=== PATIENT | female | born 1950 | race Caucasian/White ===

== ENCOUNTER 2021-06-11 07:10 | Outpatient (REF) | payer MEDICARE, SELFPAY ==
--- NOTE | ~2021-06-11 | MM_ITS ---
EXAMINATION: MM SCREENING DIGITAL BREAST TOMOSYNTHESIS, BILATERAL CLINICAL INFORMATION: Screening. Asymptomatic. Family history breast cancer, paternal aunt. The lifetime risk of breast cancer based on the Tyrer-Cuzick Model is 7%. COMPARISON: Mammography: 09/06/2019, 02/02/2018, 08/01/2016. TECHNIQUE: Digital breast tomosynthesis is performed in both the craniocaudal and mediolateral oblique views along with computer-aided detection (CAD). Synthesized 2D images are generated from the tomosynthesis. FINDINGS: There are scattered areas of fibroglandular density (ACR BI-RADS breast composition Category b). There are no significant masses, abnormal calcifications, or other abnormalities. Parenchymal pattern is similar to prior exams. The axilla and skin contours are unremarkable. MM/MM tomosynthesis screening BI IMPRESSION: There are no significant changes from prior study. ASSESSMENT: BI-RADS 1: Negative RECOMMENDATION: Routine annual mammography screening. This patient's information was entered into a reminder system with a target due date for their next mammogram.
== END 2021-06-11 07:11 | disposition home or self-care (01) ==
LOC: HO.MAMMO 07:10
PROVIDERS: Visit Provider Internal Medicine
DX: Z12.31 Encounter for screening mammogram for malignant neoplasm of breast (principal)
CPT/HCPCS: 77063; 77067

== ENCOUNTER 2022-07-25 21:06 | Inpatient (IN) | payer MEDICARE, SELFPAY ==
--- NOTE | 2022-07-25 | ECG_ITS ---
Test Reason : ABDOMINAL PAIN Blood Pressure : / mmHG Vent. Rate : 068 BPM Atrial Rate : 068 BPM P-R Int : 146 ms QRS Dur : 080 ms QT Int : 410 ms P-R-T Axes : 046 023 011 degrees QTc Int : 435 ms Normal sinus rhythm Low voltage QRS Normal ECG No previous ECGs available Referred By: Generic ED Physician Electronically Signed By:NIKI PULLIAM MD
--- NOTE | ~2022-07-25 | CT_ITS ---
EXAMINATION: CT ABDOMEN AND PELVIS WITH CONTRAST CLINICAL INFORMATION: Upper abdominal pain, question etiology COMPARISON: 11/16/2016 TECHNIQUE: Multidetector volumetric images were obtained from the superior aspect of the liver through the pubic symphysis following administration 85 mL of Omnipaque 350 intravenous contrast. Sagittal and coronal reformatted images were obtained on the technologist's workstation. Oral contrast: No This CT examination was performed using dose optimization techniques as appropriate, variously including the following: *Automated exposure control *Adjustment of mA and/or kV according to patient size (this includes techniques or standardized protocols for targeted exams where dose is matched to indication/reason for exam; i.e. extremities or head) *Use of iterative reconstruction technique DLP: 667 mGy-cm FINDINGS: LUNG BASES: Minimal dependent atelectasis. LIVER, GALLBLADDER, AND BILIARY TREE: The liver is normal in size, shape, and attenuation. No focal hepatic lesion or biliary ductal dilatation is present. The gallbladder is moderately distended, without densely calcified gallstones or significant wall thickening, though there is mild adjacent stranding adjacent to the inferior aspect of the gallbladder and hepatic flexure. PANCREAS: Unremarkable. SPLEEN: Unremarkable. ADRENAL GLANDS: Unremarkable. KIDNEYS AND URETERS: The kidneys are normal in size, shape, and attenuation. Tiny hypodensity in the right kidney statistically favors a cyst; no follow-up recommended. No hydronephrosis, hydroureter, or obstructing calculi seen. No perinephric stranding. BLADDER: Unremarkable. GASTROINTESTINAL TRACT: Moderate-sized hiatal hernia is noted. No evidence of bowel obstruction or significant wall thickening. There is colonic diverticulosis with mild stranding adjacent to hepatic flexure diverticuli in the right upper quadrant, raising the possibility of subtle diverticulitis. Appendix appears collapsed. No free fluid or free air is seen. ABDOMINAL WALL: No significant hernia is appreciated. LYMPH NODES: Normal. VASCULAR: Scattered atherosclerotic calcifications are present. PELVIC VISCERA: Status post hysterectomy. OSSEOUS STRUCTURES: Degenerative changes are noted in the spine. CT/CT abdomen pelvis w IV con IMPRESSION: 1. Colonic diverticulosis with mild stranding adjacent to the hepatic flexure in the right upper quadrant, raising the possibility of subtle diverticulitis in the proper clinical setting. Of note, this stranding is also adjacent to the gallbladder, though there is no appreciable gallbladder wall thickening or densely calcified gallstones; if there is clinical concern for possible cholecystitis, this would be better assessed with right upper quadrant ultrasound. 2. Moderate-sized hiatal hernia.
--- NOTE | ~2022-07-25 | US_ITS ---
EXAMINATION: US ABDOMEN LIMITED CLINICAL INFORMATION: Right upper quadrant abdominal pain. COMPARISON: Abdominal ultrasound dated 04/28/2012. TECHNIQUE: Real-time imaging of the right upper quadrant abdominal viscera. FINDINGS: PANCREAS: Visualized portions unremarkable. LIVER: Unremarkable. GALLBLADDER: Remarkable. COMMON BILE DUCT: Normal in caliber measuring 0.3 cm in diameter. RIGHT KIDNEY: 9.7 cm. Unremarkable. FREE FLUID: None. US/US abdomen limited IMPRESSION: Unremarkable abdominal ultrasound.
[2022-07-25 21:19] VITALS: BP 149/76; PULSE 89; RESP 20; TEMP 36.1; O2SAT 98; BMI 28.8
[2022-07-25 21:55] LABS: Basophils Percent Auto 0.3 % (0-2); Eosinophils Absolute Auto 0.1 X10*3/uL (0.0-0.4); Eosinophils Percent Auto 0.8 % (0-4); Hematocrit 39.4 % (37.0-47.0); Hemoglobin 13.5 g/dl (12.0-16.0); Imm Gran Abs Auto 0.06 X10*3/uL (0.00-0.03); Imm Gran Pct Auto 0.5 % (0.0-0.4); Lymphocytes Absolute Auto 2.9 X10*3/uL (1.2-4.9); Lymphocytes Percent Auto 24.2 % (20-40); MANUAL DIFF FLAG NO; Mean Corpuscular HGB Conc 34.3 g/dl (31.0-35.0); Mean Corpuscular Hemoglobin 30.9 pg (27.0-33.0); Mean Corpuscular Volume 90.2 fL (80.0-98.0); Mean Platelet Volume 8.8 fL (9.4-12.3); Monocytes Absolute Auto 1.2 X10*3/uL (0.1-1.2); Monocytes Percent Auto 10.1 % (2-11); Neutrophils Absolute Auto 7.8 x10*3/uL (2.0-8.3); Neutrophils Percent Auto 64.1 % (45-73); Platelet Count 267 X10*3/uL (160-400); Red Blood Count 4.37 X10*6/uL (4.20-5.50); Red Cell Distribution Width 12.1 % (11.0-16.0); White Blood Count 12.2 X10*3/uL (4.8-10.8)
[2022-07-25 21:57] LABS: Appearance Urine Clear; Color Urine Yellow; Glucose Urine UA Negative (Negative); Leukocyte Esterase Urine Trace (Negative); Nitrite Urine Negative (Negative); PH 5.5 (5.0-9.0); Specific Gravity - Urine 1.015 (1.005-1.025); UMIC TRIGGER UACC YES; Urine Blood Trace (Negative); Urine Ketones Negative (Negative); Urine Protein Negative (Neg-Trace)
[2022-07-25 22:03] LABS: Bacteria Urine None Seen (None Seen); Hyaline Casts Urine 0-2 /LPF (0-2); RBC Urine 0-2 /HPF (0-2); Squamous Epithelial Cell Urine 0-2 /HPF (0-2); WBC Urine 0-5 /HPF (0-5)
[2022-07-25 22:11] LABS: Alanine Aminotransferase 24 U/L (0-31); Albumin Level 4.6 g/dL (3.5-5.0); Alkaline Phosphatase 69 U/L (39-117); Anion Gap 19 (12-20); Aspartate Amino Transferase 38 U/L (5-31); Bilirubin Direct 0.3 mg/dL (0.0-0.5); Bilirubin Total 0.6 mg/dL (0.0-1.0); Blood Urea Nitrogen 22 mg/dL (9-16); Calcium 10.1 mg/dL (8.4-10.2); Carbon Dioxide 23 mmol/L (22-29); Chloride 96 mmol/L (96-108); Creatinine Clr Calc Pharmacy 48.1; Estimated Glomerular Filt Rate 52; Glucose Random 106 mg/dL (60-115); Lipase 48 U/L (8-78); Potassium 4.3 mmol/L (3.3-5.1); Sodium 134 mmol/L (135-145)
[2022-07-25 22:17] LABS: Troponin-I High Sensitivity < 3.5 ng/L (<3.5-17.0)
[2022-07-26] VITALS (9 sets, daily range): BP systolic 126–178; BP diastolic 55–81; PULSE 84–102; RESP 14–22; TEMP 36.6–37.2; O2SAT 92–98
--- NOTE | 2022-07-26 00:35 | ED.ABDPAIN ---
HPI - Abdominal Pain General Chief Complaint: Abdominal Pain Stated Complaint: Abd pain/Vomiting Time Seen by Provider: 07/26/22 00:33 Source: patient Mode of arrival: ambulatory Limitations: no limitations History of Present Illness HPI narrative: Patient with history of diverticulitis noticed pain in upper abdomen 2 days ago got better and again today after supper localized in epigastric area radiated to bilateral upper abdomen been having bilious vomiting multiple times no fever no chills no abdominal distention had normal bowel movement earlier no fever no chills no urinary complaints Related Data Home Medications Medication Instructions Recorded Confirmed atenolol 50 mg tablet 1 tab PO DAILY 07/26/22 07/26/22 fluticasone propionate 50 1 spray intranasal DAILY 07/26/22 07/26/22 mcg/actuation nasal spray,suspension lisinopril 40 mg tablet 1 tab PO DAILY 07/26/22 07/26/22 magnesium oxide 400 mg (241.3 mg 1 tab PO BEDTIME 07/26/22 07/26/22 magnesium) tablet omeprazole 20 mg capsule,delayed 1 cap PO SUTUTH 07/26/22 07/26/22 release Allergies Allergy/AdvReac Type Severity Reaction Status Date / Time No Known Allergies Allergy Verified 07/25/22 21:23 Review of Systems Review of Systems Yes all other systems are reviewed and are negative [facility] Past Medical History Medical History Hyperlipidemia Hypertension Surgical History H/O: hysterectomy Family History Family History Other No family history of coronary artery disease Social History Social History Advance Directives: No Advance Directives Information Provided: Yes service: No Current occupational status: retired Physical Exam ED Vital Signs: Vital Signs - 24 hr 07/25/22 21:19 07/26/22 00:26 07/26/22 03:06 Temperature 96.9 F 97.8 F Pulse Rate 89 92 91 Respiratory Rate 20 20 Blood Pressure 149/76 H 178/81 H 126/69 Pulse Oximetry 98 97 Oxygen Delivery Method Room Air 07/26/22 05:59 Temperature 98.9 F Pulse Rate 100 Respiratory Rate 18 Blood Pressure 141/66 H Pulse Oximetry 92 Oxygen Delivery Method Room Air BMI result Body Mass Index 28.8 Appearance: Alert. Oriented X3. In moderate distress Eyes: No pallor or icterus ENT: Pharynx normal. Oral Mucosa moist Neck: Normal inspection. Neck supple. CVS: Normal heart rate and rhythm. Pulses normal. Respiratory: No respiratory distress. Equal air entry bilateral, no wheezing/rales/rhonchi Abdomen: Soft, upper abdominal tenderness epigastric tenderness, slightly right upper quadrant tenderness, Bowel sounds are present, no mass palpable, no CVA tenderness Skin: Skin warm and dry. Normal skin color. Normal skin turgor. Extremities: No lower extremity edema. No calf tenderness Neuro: Oriented X 3. No motor deficit. Medications Administered Generic Name Dose Route Start Last Admin Trade Name Freq PRN Reason Stop Dose Admin Atenolol 50 mg 07/26/22 11:00 07/26/22 11:22 Atenolol 50 Mg Tablet PO 50 mg DAILY KALEY Administration Protocol Heparin Sodium (Porcine) 5,000 unit 07/26/22 06:15 07/26/22 07:45 Heparin Sodium,Porcine 5,000 Unit/Ml Vial SUBCUT 5,000 unit Q12H KALEY Administration Ceftriaxone Sodium 1 gm/ 50 mls @ 100 mls/hr 07/26/22 06:15 07/26/22 02:58 Sodium Chloride IV Infused Q24H KALEY Infusion Metronidazole 500 mg in 100 mls @ 100 mls/hr 07/26/22 07:00 07/26/22 14:51 Flagyl IV 100 mls/hr Q8H KALEY Administration Dextrose/Lactated Ringer's 1,000 mls @ 100 mls/hr 07/26/22 12:15 07/26/22 12:42 D5lr IVCONT 100 mls/hr .Q10H KALEY Administration Morphine Sulfate 4 mg 07/26/22 06:11 07/26/22 12:43 Morphine Sulfate 4 Mg/Ml Cartridge IVPUSH 4 mg Q4H PRN Administration Pain, Severe (Pain Scale 7-10) Protocol Ondansetron HCl 4 mg 07/26/22 06:11 07/26/22 07:43 Ondansetron Hcl 4 Mg/2 Ml Vial IVPUSH 4 mg Q8H PRN Administration Nausea and Vomiting Oxycodone HCl 5 mg 07/26/22 06:11 07/26/22 07:43 Oxycodone Hcl Immed Release 5 Mg Tablet PO 5 mg Q6H PRN Administration Pain, Severe (Pain Scale 7-10) Sodium Chloride 3 ml 07/26/22 08:00 07/26/22 14:52 0.9 % Sodium Chloride Flush 3 Ml Syringe IVFLUSH 3 ml QSHIFT KALEY Administration Discontinued Medications Generic Name Dose Route Start Last Admin Trade Name Ara PRN Reason Stop Dose Admin Hydromorphone HCl 1 mg 07/26/22 00:35 07/26/22 00:46 Hydromorphone Hcl 1 Mg/Ml Syringe IVPUSH 07/26/22 00:36 1 mg ONCE ONE Administration Protocol Hydromorphone HCl 0.5 mg 07/26/22 02:11 07/26/22 02:24 Hydromorphone Hcl 0.5 Mg/0.5 Ml Syringe IVPUSH 07/26/22 02:12 0.5 mg ONCE ONE Administration Sodium Chloride 1,000 mls @ 999 mls/hr 07/26/22 00:35 07/26/22 03:41 Ns IV 07/26/22 01:35 Infused .Q1H1M ONE Infusion Ceftriaxone Sodium 1 gm/ 50 mls @ 100 mls/hr 07/26/22 02:11 07/26/22 07:12 Sodium Chloride IV 07/26/22 02:40 Not Given ONCE ONE Metronidazole 500 mg in 100 mls @ 100 mls/hr 07/26/22 02:11 07/26/22 07:12 Flagyl IV 07/26/22 03:10 Not Given ONCE ONE Sodium Chloride 1,000 mls @ 999 mls/hr 07/26/22 02:11 07/26/22 03:30 Ns IV 07/26/22 03:11 999 mls/hr .Q1H1M KALEY Administration Iohexol 85 ml 07/26/22 06:01 07/26/22 06:02 Iohexol 350 Mg/Ml 100 Ml Infus..Btl IV 07/26/22 06:02 85 ml ONCE ONE Administration Metoclopramide HCl 5 mg 07/26/22 11:00 07/26/22 11:22 Metoclopramide Hcl 10 Mg/2 Ml Vial IVPUSH 07/26/22 11:01 5 mg ONCE ONE Administration Morphine Sulfate 2 mg 07/26/22 05:35 07/26/22 07:48 Morphine Sulfate 2 Mg/Ml Cartridge IVPUSH 07/26/22 05:36 Not Given ONCE ONE Ondansetron HCl 4 mg 07/26/22 00:35 07/26/22 00:46 Ondansetron Hcl 4 Mg/2 Ml Vial IVPUSH 07/26/22 00:36 4 mg ONCE ONE Administration MDM - Abdominal Pain MDM Narrative Medical decision making narrative: Patient CT scan showed diverticulitis uncomplicated in hepatic flexure , unusual location level to show slight leukocytosis would admit patient for IV antibiotic and pain control will give Rocephin and Flagyl Differential Diagnosis Differential diagnosis: Likely abdominal pain, calculus of kidney, diverticulitis, gastritis, mesenteric ischemia and pancreatitis Lab Data Attestation: I reviewed the patient's lab results. Result diagrams: 07/25/22 21:34 07/25/22 21:33 Labs: Lab Results 07/25/22 07/25/22 07/25/22 Range/Units 21:33 21:33 21:34 WBC 12.2 H (4.8-10.8) X10*3/uL RBC 4.37 (4.20-5.50) X10*6/uL Hgb 13.5 (12.0-16.0) g/dl Hct 39.4 (37.0-47.0) % MCV 90.2 (80.0-98.0) fL MCH 30.9 (27.0-33.0) pg MCHC 34.3 (31.0-35.0) g/dl RDW 12.1 (11.0-16.0) % Plt Count 267 (160-400) X10*3/uL MPV 8.8 L (9.4-12.3) fL Immature Gran % (Auto) 0.5 H (0.0-0.4) % Neut % (Auto) 64.1 (45-73) % Lymph % (Auto) 24.2 (20-40) % Morrow % (Auto) 10.1 (2-11) % Eos % (Auto) 0.8 (0-4) % Baso % (Auto) 0.3 (0-2) % Lymph # (Auto) 2.9 (1.2-4.9) X10*3/uL Morrow # (Auto) 1.2 (0.1-1.2) X10*3/uL Eos # (Auto) 0.1 (0.0-0.4) X10*3/uL Baso # (Auto) 0.0 (0.0-0.2) X10*3/uL Abs Immat Gran (auto) 0.06 H (0.00-0.03) X10*3/uL Absolute Neuts (auto) 7.8 (2.0-8.3) x10*3/uL Absolute Nucleated RBC 0.000 (0.0-0.012) X10*3/uL Nucleated RBC % (auto) 0.0 (0.0-0.2) /100WBC Sodium 134 L (135-145) mmol/L Potassium 4.3 (3.3-5.1) mmol/L Chloride 96 (96-108) mmol/L Carbon Dioxide 23 (22-29) mmol/L Anion Gap 19 (12-20) BUN 22 H (9-16) mg/dL Creatinine 1.04 (0.5-1.4) mg/dL Estim Creat Clear Calc 48.1 Estimated GFR 52 Random Glucose 106 (60-115) mg/dL Lactic Acid (0.5-2.0) mmol/L Calcium 10.1 (8.4-10.2) mg/dL Total Bilirubin 0.6 (0.0-1.0) mg/dL Direct Bilirubin 0.3 (0.0-0.5) mg/dL AST 38 H (5-31) U/L ALT 24 (0-31) U/L Alkaline Phosphatase 69 (39-117) U/L Troponin I High Sens < 3.5 (<3.5-17.0) ng/L Total Protein 7.0 (6.5-8.0) g/dL Albumin 4.6 (3.5-5.0) g/dL Lipase 48 (8-78) U/L Urine Color Urine Appearance Urine pH (5.0-9.0) Ur Specific Fountain (1.005-1.025) Urine Protein (Neg-Trace) mg/dL Urine Glucose (UA) (Negative) mg/dL Urine Ketones (Negative) mg/dL Urine Blood (Negative) Urine Nitrite (Negative) Ur Leukocyte Esterase (Negative) Urine RBC (0-2) /HPF Urine WBC (0-5) /HPF Ur Squamous Epith Cells (0-2) /HPF Urine Bacteria (None Seen) Hyaline Casts (0-2) /LPF Influenza Type A (PCR) (Negative) Influenza Type B (PCR) (Negative) RSV RNA Qual (PCR) (Negative) SARS-CoV-2 RNA (RT-PCR) (Negative) 07/25/22 07/26/22 07/26/22 Range/Units 21:40 00:31 00:43 WBC (4.8-10.8) X10*3/uL RBC (4.20-5.50) X10*6/uL Hgb (12.0-16.0) g/dl Hct (37.0-47.0) % MCV (80.0-98.0) fL MCH (27.0-33.0) pg MCHC (31.0-35.0) g/dl RDW (11.0-16.0) % Plt Count (160-400) X10*3/uL MPV (9.4-12.3) fL Immature Gran % (Auto) (0.0-0.4) % Neut % (Auto) (45-73) % Lymph % (Auto) (20-40) % Morrow % (Auto) (2-11) % Eos % (Auto) (0-4) % Baso % (Auto) (0-2) % Lymph # (Auto) (1.2-4.9) X10*3/uL Morrow # (Auto) (0.1-1.2) X10*3/uL Eos # (Auto) (0.0-0.4) X10*3/uL Baso # (Auto) (0.0-0.2) X10*3/uL Abs Immat Gran (auto) (0.00-0.03) X10*3/uL Absolute Neuts (auto) (2.0-8.3) x10*3/uL Absolute Nucleated RBC (0.0-0.012) X10*3/uL Nucleated RBC % (auto) (0.0-0.2) /100WBC Sodium (135-145) mmol/L Potassium (3.3-5.1) mmol/L Chloride (96-108) mmol/L Carbon Dioxide (22-29) mmol/L Anion Gap (12-20) BUN (9-16) mg/dL Creatinine (0.5-1.4) mg/dL Estim Creat Clear Calc Estimated GFR Random Glucose (60-115) mg/dL Lactic Acid 2.3 H* (0.5-2.0) mmol/L Calcium (8.4-10.2) mg/dL Total Bilirubin (0.0-1.0) mg/dL Direct Bilirubin (0.0-0.5) mg/dL AST (5-31) U/L ALT (0-31) U/L Alkaline Phosphatase (39-117) U/L Troponin I High Sens (<3.5-17.0) ng/L Total Protein (6.5-8.0) g/dL Albumin (3.5-5.0) g/dL Lipase (8-78) U/L Urine Color Yellow Urine Appearance Clear Urine pH 5.5 (5.0-9.0) Ur Specific Fountain 1.015 (1.005-1.025) Urine Protein Negative (Neg-Trace) mg/dL Urine Glucose (UA) Negative (Negative) mg/dL Urine Ketones Negative (Negative) mg/dL Urine Blood Trace H (Negative) Urine Nitrite Negative (Negative) Ur Leukocyte Esterase Trace H (Negative) Urine RBC 0-2 (0-2) /HPF Urine WBC 0-5 (0-5) /HPF Ur Squamous Epith Cells 0-2 (0-2) /HPF Urine Bacteria None Seen (None Seen) Hyaline Casts 0-2 (0-2) /LPF Influenza Type A (PCR) NEGATIVE (Negative) Influenza Type B (PCR) NEGATIVE (Negative) RSV RNA Qual (PCR) NEGATIVE (Negative) SARS-CoV-2 RNA (RT-PCR) NEGATIVE (Negative) Discharge Plan Discharge Clinical Impression: Diverticulitis Patient Disposition: Admitted As Inpatient
[2022-07-26] MEDS: HYDROmorphone HCl 1 MG/ML SYRINGE IVPUSH (00:46)
[2022-07-26] MEDS: ondansetron HCL 4 MG/2 ML VIAL IVPUSH ×3 (00:46→18:06)
[2022-07-26] MEDS: 0.9 % Sodium Chloride 1,000 ML 999 ML IV ×2 (01:40→03:30)
[2022-07-26] MEDS: HYDROmorphone HCl 0.5 MG/0.5 ML SYRINGE IVPUSH (02:24)
[2022-07-26] MEDS: cefTRIAXone sodium 1 GM in 0.9 % Sodium Chloride 50 ML IV (02:28)
[2022-07-26] MEDS: metroNIDAZOLE/NS 500 MG/100 ML PIGGYBACK 100 MG IV ×3 (02:28→22:15)
[2022-07-26 05:59] LABS: Lactic Acid 2.3 mmol/L (0.5-2.0)
[2022-07-26 06:00] LABS: Reflex Lactate? Lactic Acid Added
[2022-07-26] MEDS: iohexoL 350 MG/ML 100 ML INFUS..BTL 85 ML IV (06:02)
[2022-07-26 06:37] LABS: Influenza A PCR NEGATIVE (Negative); Influenza B PCR NEGATIVE (Negative); Resp Syncy Virus RNA Qual PCR NEGATIVE (Negative); SARS COV2 PCR INHOUSE NEGATIVE (Negative)
--- OUTSIDE RECORDS SUMMARY | 2022-07-26 07:09 | XMS_ITS | Continuity of Care Document ---
:1950 Author Organization [facility] [employer] [facility] p Address [address] [place] [address], [address] [place] [phone]- Care Team Providers Name Role Phone Evelio Marsh MD Primary Care Physician [id number] Date(s): 12/03/19 - 04/01/20 [facility] [employer] [facility] [address] [place] [address], [address] [place] [phone]- [facility] Attending Physician: Katherine Parsons MD Admitting Physician: Katherine Parsons MD Referring Physician: Evelio Marsh MD Allergies, Adverse Reactions, Alerts Substance Reaction Severity Status Pollen Active Medications albuterol CFC free 90 mcg/inh inhalation aerosol 2, puffs, Inhalation, Every 6 hours, PRN, # 18 Gm, Refills 0, Maintenance, 06/30/19 8:57:55 EST, Aerosol Start Date: 06/30/19 Status: Orderedatenolol-chlorthalidone 50 mg-25 mg oral tablet 1 tablet, By Mouth, Daily in AM, # 30 tablet, 0 Refills, Maintenance, 02/18/19 15:06:38 EDT, Tablet Start Date: 02/18/19 Status: OrderedColace sodium 100 mg oral capsule 100 mg, 1, capsule, By Mouth, 2 times a day, PRN, # 30 capsule, Refills 0, Tot. Refills 0, Maintenance, for constipation, 07/17/19 8:58:03 EST, Route to Pharmacy Electronically, [id number], [facility]/pharmacy #[id number] Start Date: 07/17/19 Status: OrderedFlonase 50 mcg/inh nasal spray 1 sprays, Nares, Both, Daily, PRN allergy symptoms, 0 Refills, Maintenance, 06/30/19 8:59:55 EST Start Date: 06/30/19 Status: Orderedibuprofen 400 mg oral tablet 400 mg, 1, tablet, By Mouth, Every 4 hours, PRN, # 30 tablet, Refills 0, Tot. Refills 0, Maintenance, for pain, 07/17/19 8:58:21 EST, Route to Pharmacy Electronically, [id number], [facility]/pharmacy #[id number] Start Date: 07/17/19 Status: OrderedLisinopril = 40 mg, By Mouth, Daily in AM, 0 Refills, Maintenance, 02/18/19 15:04:36 EDT Start Date: 02/18/19 Status: OrderedoxyCODONE 5 mg oral tablet 5 mg, 1, tablet, By Mouth, Every 6 hours, PRN, for post-op pain, # 20 tablet, Refills 0, Tot. Refills 0, Maintenance, for pain, 07/17/19 8:57:58 EST, Route to Pharmacy Electronically, [id number], [facility]/pharmacy #[id number], Partial f... Start Date: 07/17/19 Status: Orderedpravastatin 40 mg oral tablet 1 tablet = 40 mg, By Mouth, 2 times a day, 0 Refills, Maintenance, 02/18/19 15:04:16 EDT Start Date: 02/18/19 Status: OrderedPriLOSEC OTC 20 mg oral delayed release tablet 1 tablet = 20 mg, By Mouth, Daily, 3-4 / week, 0 Refills, Maintenance, 02/18/19 15:05:03 EDT Start Date: 02/18/19 Status: Ordered Problem List Condition Effective Dates Status Health Status Informant Asthma(Confirmed) Active COPD (chronic obstructive pulmonary Active disease)(Confirmed) Diverticulosis of colon(Confirmed) Active Essential hypertension(Confirmed) Active Reflux esophagitis(Confirmed) Active Reflux esophagitis(Confirmed) Active Heartburn(Confirmed) Active Hypercholesteremia(Confirmed) Active Hyperlipidemia(Confirmed) Active Hypertension(Confirmed) Active Tubular adenoma of colon(Confirmed) Active Social History Social History Type Response Smoking Status Former smoker, quit more gume n 30 days ago entered on: 02/18/19 Sex Medical Equipment Implanted Date:07/17/19 Target Site:Pelvis Description Quantity MRI Company Model MESH Y RESTORELLE 6 24X4 - COLO ([id number]) 1 [employer] Pelon Unknown KATHI: No Information Assigning Authority: FDA
--- OUTSIDE RECORDS SUMMARY | 2022-07-26 07:09 | XMS_ITS | Continuity of Care Document ---
:1950 Author Organization [facility] p Address [address] [place] [address], [address] [place] [id number]- Care Team Providers Name Role Phone Evelio Marsh MD [id number] Date(s): 03/03/20 - 04/02/20 [facility] [address] [place] [address], [address] [place] [id number] [facility] Attending Physician: Michelle Delacruz Admitting Physician: Michelle Delacruz Referring Physician: Michelle Delacruz Referring Physician: Katherine Gentile Allergies, Adverse Reactions, Alerts Substance Reaction Severity [...] 07/17/19 8:58:03 EST, Route to Pharmacy Electronically, [id number], [facility]/pharmacy #[id number] Start Date: 07/17/19 Status: OrderedFlonase 50 mcg/inh nasal spray 1 sprays, Nares, Both, Daily, PRN allergy symptoms, 0 Refills, Maintenance, 06/30/19 8:59:55 EST Start Date: 06/30/19 Status: Orderedibuprofen 400 mg oral tablet 400 mg, 1, tablet, By Mouth, Every 4 hours, PRN, # 30 tablet, Refills 0, Tot. Refills 0, Maintenance, for pain, 07/17/19 8:58:21 EST, Route to Pharmacy Electronically, [id number], [facility]/pharmacy #[id number] Start Date: 07/17/19 Status: OrderedLisinopril = 40 mg, By Mouth, Daily in AM, 0 Refills, Maintenance, 02/18/19 15:04:36 EDT Start Date: 02/18/19 Status: OrderedoxyCODONE 5 mg oral tablet 5 mg, 1, tablet, By Mouth, Every 6 hours, PRN, for post-op pain, # 20 tablet, Refills 0, Tot. Refills 0, Maintenance, for pain, 07/17/19 8:57:58 EST, Route to Pharmacy Electronically, [id number], [facility]/pharmacy #[id number], Partial f... Start Date: 07/17/19 Status: [...] MESH Y RESTORELLE 6 24X4 - COLO ([id number]) 1 [employer] Pelon Unknown KATHI: No Information Assigning Authority: FDA
--- OUTSIDE RECORDS SUMMARY | 2022-07-26 07:09 | XMS_ITS | Continuity of Care Document ---
:1950 Author Organization [facility] [employer] [facility] Address [address] [place] [phone]- Care Team Providers Name Role Phone Evelio Marsh MD [id number] Date(s): 06/10/19 - 08/31/19 [facility] [employer] [address] [place] [phone]- Attending Physician: Katherine Parsons MD Admitting Physician: [...] 07/17/19 8:58:03 EST, Route to Pharmacy Electronically, [id number], [facility]/pharmacy #[id number] Start Date: 07/17/19 Status: OrderedFlonase 50 mcg/inh nasal spray 1 sprays, Nares, Both, Daily, PRN allergy symptoms, 0 Refills, Maintenance, 06/30/19 8:59:55 EST Start Date: 06/30/19 Status: Orderedibuprofen 400 mg oral tablet 400 mg, 1, tablet, By Mouth, Every 4 hours, PRN, # 30 tablet, Refills 0, Tot. Refills 0, Maintenance, for pain, 07/17/19 8:58:21 EST, Route to Pharmacy Electronically, [id number], [facility]/pharmacy #[id number] Start Date: 07/17/19 Status: OrderedLisinopril = 40 mg, By Mouth, Daily in AM, 0 Refills, Maintenance, 02/18/19 15:04:36 EDT Start Date: 02/18/19 Status: OrderedoxyCODONE 5 mg oral tablet 5 mg, 1, tablet, By Mouth, Every 6 hours, PRN, for post-op pain, # 20 tablet, Refills 0, Tot. Refills 0, Maintenance, for pain, 07/17/19 8:57:58 EST, Route to Pharmacy Electronically, [id number], [facility]/pharmacy #[id number], Partial f... Start Date: 07/17/19 Status: [...] MESH Y RESTORELLE 6 24X4 - COLO ([id number]) 1 [employer] Pelon Unknown KATHI: No Information Assigning Authority: FDA
--- NOTE | 2022-07-26 07:38 | P.HPHOSP_ITS ---
History of Present Illness Date of Service: 07/26/22 Chief Complaint: Abd pain this is a 72-year-old female with past medical history of hypertension, hyperlipidemia presents to the hospital with complaints of abdominal pain. Patient reports the abdominal pain to be epigastric, radiating to the right upper quadrant, started the day prior to presentation, has nausea, vomiting, no diarrhea. Has some constipation, denies any fever, has chills,no chest pain, no shortness of breath, no urinary symptoms and no lower extremity edema. On arrival to the ED patient hemodynamically stable Labs are significant for WBC count of 12.2, sodium of 134, lactic acid of 2.3, urine shows leukocyte Estrace with some WBC Abdominal CT showed diffuse colitis patient started on IV antibiotics and will be admitted for further management Review of Systems Review of Systems: Yes all other systems are reviewed and are negative PMFSH Medical History Hyperlipidemia Hypertension Family History Other No family history of coronary artery disease Surgical History H/O: hysterectomy Social History Advance Directives: No Advance Directives Information Provided: Yes Meds Allergies Allergy/AdvReac Type Severity Reaction Status Date / Time No Known Allergies Allergy Verified 07/25/22 21:23 Active Medications: Current Medications Acetaminophen (Acetaminophen 325 Mg Tablet) 650 mg PO Q6H PRN PRN Reason: Pain, Mild (Pain Scale 1-3) Heparin Sodium (Porcine) (Heparin Sodium,Porcine 5,000 Unit/Ml Vial) 5,000 unit SUBCUT Q12H [facility] Ceftriaxone Sodium 1 gm/ (Sodium Chloride) 50 mls @ 100 mls/hr IV Q24H [facility] Last Infusion: 07/26/22 02:58 Dose: Infused Metronidazole (Flagyl) 500 mg in 100 mls @ 100 mls/hr IV Q8H [facility] Last Infusion: 07/26/22 03:28 Dose: Infused Morphine Sulfate (Morphine Sulfate 4 Mg/Ml Cartridge) 4 mg IVPUSH Q4H PRN; Protocol PRN Reason: Pain, Severe (Pain Scale 7-10) Ondansetron HCl (Ondansetron Hcl 4 Mg/2 Ml Vial) 4 mg IVPUSH Q8H PRN PRN Reason: Nausea and Vomiting Oxycodone HCl (Oxycodone Hcl Immed Release 5 Mg Tablet) 5 mg PO Q6H PRN PRN Reason: Pain, Severe (Pain Scale 7-10) Sodium Chloride (0.9 % Sodium Chloride Flush 3 Ml Syringe) 3 ml IVFLUSH QSHIFT [facility] Physical Exam Vital Signs and Narrative: Vital Signs: Last Vital Signs Temp 98.9 F 07/26/22 05:59 Pulse 102 H 07/26/22 07:01 Resp 18 07/26/22 07:01 BP 148/68 H 07/26/22 07:01 Pulse Ox 95 07/26/22 07:01 O2 Del Method 07/26/22 07:01 BMI result Body Mass Index 28.8 Const: General: cooperative and no acute distress Orientation/consciousness: patient oriented x3 Eyes: General: appearance normal, both eyes and all related structures Resp: Effort & Inspection: normal respiratory effort Auscultation: clear to auscultation bilaterally Cardio: Rate: regular rate Rhythm: regular rhythm GI: Other: diffusely tender, no rebound or guarding Palpation (GI): Soft to palpation Auscultation: normal bowel sounds Skin: General skin exam: no rashes or lesions noted Neuro: General: patient oriented x3 Cognition (Neuro): normal cognition Extrem: General: Yes normal to inspection and Yes no pedal edema Results Labs CBC and Chem 7: 07/25/22 21:34 07/25/22 21:33 Labs: Laboratory Results - last 24 hr 07/25/22 07/25/22 07/25/22 21:33 21:33 21:34 MCV 90.2 MCH 30.9 MCHC 34.3 RDW 12.1 Plt Count 267 MPV 8.8 L Immature Gran % (Auto) 0.5 H Neut % (Auto) 64.1 Lymph % (Auto) 24.2 [place] % (Auto) 10.1 Eos % (Auto) 0.8 Baso % (Auto) 0.3 Lymph # (Auto) 2.9 [place] # (Auto) 1.2 Eos # (Auto) 0.1 Baso # (Auto) 0.0 Abs Immat Gran (auto) 0.06 H Absolute Neuts (auto) 7.8 Absolute Nucleated RBC 0.000 Nucleated RBC % (auto) 0.0 Anion Gap 19 Estim Creat Clear Calc 48.1 Estimated GFR 52 Random Glucose 106 Lactic Acid Calcium 10.1 Total Bilirubin 0.6 Direct Bilirubin 0.3 AST 38 H ALT 24 Alkaline Phosphatase 69 Troponin I High Sens < 3.5 Total Protein 7.0 Albumin 4.6 Lipase 48 Urine Color Urine Appearance Urine pH Ur Specific [place] Urine Protein Urine Glucose (UA) Urine Ketones Urine Blood Urine Nitrite Ur Leukocyte Esterase Urine RBC Urine WBC Ur Squamous Epith Cells Urine Bacteria Hyaline Casts Influenza Type A (PCR) Influenza Type B (PCR) RSV RNA Qual (PCR) SARS-CoV-2 RNA (RT-PCR) 07/25/22 07/26/22 07/26/22 21:40 00:31 00:43 MCV MCH MCHC RDW Plt Count MPV Immature Gran % (Auto) Neut % (Auto) Lymph % (Auto) [place] % (Auto) Eos % (Auto) Baso % (Auto) Lymph # (Auto) [place] # (Auto) Eos # (Auto) Baso # (Auto) Abs Immat Gran (auto) Absolute Neuts (auto) Absolute Nucleated RBC Nucleated RBC % (auto) Anion Gap Estim Creat Clear Calc Estimated GFR Random Glucose Lactic Acid 2.3 H* Calcium Total Bilirubin Direct Bilirubin AST ALT Alkaline Phosphatase Troponin I High Sens Total Protein Albumin Lipase Urine Color Yellow Urine Appearance Clear Urine pH 5.5 Ur Specific [place] 1.015 Urine Protein Negative Urine Glucose (UA) Negative Urine Ketones Negative Urine Blood Trace H Urine Nitrite Negative Ur Leukocyte Esterase Trace H Urine RBC 0-2 Urine WBC 0-5 Ur Squamous Epith Cells 0-2 Urine Bacteria None Seen Hyaline Casts 0-2 Influenza Type A (PCR) NEGATIVE Influenza Type B (PCR) NEGATIVE RSV RNA Qual (PCR) NEGATIVE SARS-CoV-2 RNA (RT-PCR) NEGATIVE Assessment and Plan (1) Acute colitis: Status: Acute (2) Lactic acidosis: Status: Acute Plan 72-year-old female with past medical history of hypertension, hyperlipidemia presents to the hospital with abdominal pain found to have acute colitis # epigastric abdominal pain - pancreatitis versus colitis - prior abdominal CT shows colitis, lipase is negative, official read pending - will keep NPO - IV antibiotics - pain control # lactic acidosis - IV fluid - no sepsis - follow lactic acid # hypertension - stable - continue home meds once reviewed by pharmacy DVT prophylaxis: Mikalx given patient's need for IV antibiotics not tolerating p.o. intake patient required minimum to negative patient hospital stay for further management and monitoring Quality Stroke Does the patient have a stroke diagnosis?: No VTE Prior VTE?: No VTE Risk Level:: Medical - moderate - high VTE Device Contraindication: Treatment Not Indicated VTE Drug Contraindication: N/A - Med Ordered
[2022-07-26] MEDS: oxyCODONE HCl Immed Release 5 MG TABLET PO (07:43)
[2022-07-26] MEDS: Heparin Sodium,Porcine 5,000 UNIT/ML VIAL 5000 UNIT SUBCUT ×2 (07:45→18:06)
[2022-07-26 08:44] LABS: ~Lactic Acid-LAB USE ONLY 1.3 mmol/L (0.5-2.0)
--- NOTE | 2022-07-26 09:08 | PHA.MEDREC ---
Pharmacy Consult ? Medication Reconciliation Pharmacy has completed the medication reconciliation.
--- NOTE | 2022-07-26 09:57 | MHC.CM.PN ---
Patient lives in a house with her and 2 Daughters and she required no services nor DME [employer]. Home, self care is the goal and CM has initiated and will follow for dc planning. PCP is Dr. Evelio Marsh and Patient has received Pact vax X5.
--- NOTE | 2022-07-26 09:59 | MHC.CM.PN ---
addendum to previous CM note; IMM has been addressed.
[2022-07-26] MEDS: atenoloL 50 MG TABLET PO (11:22)
[2022-07-26] MEDS: Metoclopramide HCl 10 MG/2 ML VIAL 5 MG IVPUSH (11:22)
--- NOTE | 2022-07-26 11:56 | PM.EVENT ---
Event Note Date of Service: 07/26/22 Event Note: 72-year-old female with past medical history of hypertension, hyperlipidemia presents to the hospital with abdominal pain found to have acute colitis # sepsis related to acute abdominal pain due to diverticulitis elevated WBC count, tachycardia and lactic acidosis -? CT abdomen suggestive of diverticulitis, lipase normal LFTs unremarkable -? continue NPO, IV fluids and IV antibiotics #? lactic acidosis resolved status post IV fluids #? hypertension -? stable -? continue home meds atenolol 50 mg daily, hold lisinopril 40 mg follow blood pressure ?DVT prophylaxis: Lovenox
[2022-07-26] MEDS: Dextrose 5 % and Lactated Ring 1,000 ML 100 ML IVCONT (12:42)
[2022-07-26] MEDS: Morphine Sulfate 4 MG/ML CARTRIDGE IVPUSH ×3 (12:43→22:39)
[2022-07-26] MEDS: 0.9 % Sodium Chloride Flush 3 ML SYRINGE IVFLUSH (14:52)
--- NOTE | 2022-07-26 21:46 | PC.NURSE ---
Addendum entered by Melody Crews RN 07/27/22 03:25: report given to ALIA Valencia Original Note: report received from ALIA Snow
[2022-07-26] MEDS: Prochlorperazine Edisylate 10 MG/2 ML VIAL 5 MG IVPUSH (22:40)
[2022-07-27] VITALS (9 sets, daily range): BP systolic 132–168; BP diastolic 71–90; PULSE 79–92; RESP 16–24; TEMP 36.5–36.9; O2SAT 95–97; BMI 28.9
[2022-07-27] MEDS: Dextrose 5 % and Lactated Ring 1,000 ML 100 ML IVCONT ×2 (02:43→17:09)
[2022-07-27] MEDS: oxyCODONE HCl Immed Release 5 MG TABLET PO ×2 (04:36→15:20)
[2022-07-27 04:55] LABS: MANUAL DIFF FLAG NO
[2022-07-27 04:56] LABS: Basophils Absolute Auto 0.1 X10*3/uL (0.0-0.2); Basophils Percent Auto 0.3 % (0-2); Hemoglobin 13.2 g/dl (12.0-16.0); Imm Gran Abs Auto 0.26 X10*3/uL (0.00-0.03); Imm Gran Pct Auto 1.5 % (0.0-0.4); Lymphocytes Absolute Auto 0.9 X10*3/uL (1.2-4.9); Lymphocytes Percent Auto 5.4 % (20-40); Mean Corpuscular HGB Conc 33.8 g/dl (31.0-35.0); Mean Corpuscular Hemoglobin 30.8 pg (27.0-33.0); Mean Corpuscular Volume 91.1 fL (80.0-98.0); Mean Platelet Volume 8.7 fL (9.4-12.3); Monocytes Absolute Auto 1.4 X10*3/uL (0.1-1.2); Monocytes Percent Auto 8.3 % (2-11); Neutrophils Absolute Auto 14.7 x10*3/uL (2.0-8.3); Neutrophils Percent Auto 84.5 % (45-73); Platelet Count 227 X10*3/uL (160-400); Red Blood Count 4.28 X10*6/uL (4.20-5.50); Red Cell Distribution Width 12.6 % (11.0-16.0); White Blood Count 17.4 X10*3/uL (4.8-10.8)
[2022-07-27 05:16] LABS: Anion Gap 15 (12-20); Blood Urea Nitrogen 20 mg/dL (9-16); Calcium 9.6 mg/dL (8.4-10.2); Carbon Dioxide 25 mmol/L (22-29); Chloride 97 mmol/L (96-108); Creatinine Clr Calc Pharmacy 52.7; Estimated Glomerular Filt Rate 58; Glucose Random 104 mg/dL (60-115); Potassium 3.9 mmol/L (3.3-5.1); Sodium 133 mmol/L (135-145)
[2022-07-27] MEDS: Omeprazole 20 MG CAPSULE.DR PO (05:29)
[2022-07-27] MEDS: Heparin Sodium,Porcine 5,000 UNIT/ML VIAL 5000 UNIT SUBCUT ×2 (05:29→17:43)
[2022-07-27] MEDS: ondansetron HCL 4 MG/2 ML VIAL IVPUSH (05:30)
[2022-07-27] MEDS: cefTRIAXone sodium 1 GM in 0.9 % Sodium Chloride 50 ML IV (05:31)
[2022-07-27] MEDS: 0.9 % Sodium Chloride Flush 3 ML SYRINGE IVFLUSH (05:32)
[2022-07-27] MEDS: metroNIDAZOLE/NS 500 MG/100 ML PIGGYBACK 100 MG IV ×3 (06:27→22:52)
[2022-07-27] MEDS: atenoloL 50 MG TABLET PO (08:52)
[2022-07-27] MEDS: Metoclopramide HCl 10 MG/2 ML VIAL 5 MG IVPUSH ×2 (08:52→19:52)
[2022-07-27] MEDS: Morphine Sulfate 4 MG/ML CARTRIDGE IVPUSH ×2 (08:53→19:45)
--- NOTE | 2022-07-27 12:20 | P.CONGS_ITS ---
History of Present Illness Consult details Consult date: 07/27/22 <Alem Rivas PA-C - Last Filed: 07/27/22 12:41> Requesting physician: Lance Chadwick <HOWARD Carroll Last Filed: 07/27/22 12:41> Narrative: 72 year old female with PMH of hypertension, hyperlipidemia who presented to the ED with complaints of acute onset upper abdominal pain. She reports the pain initially started on Sunday after eating breakfast. She reports the pain started in the epigasteic region and spread to the RUQ and LUQ. It was crampy in nature but severe. It nearly resolved after a few hours but she still felt generally unwell. The pain recurred Sunday after dinner and was associated with vomiting. She therefore presented to the ED for evaluation. She denies fever, chills, diarrhea, change in bowel habits, hematochezia, melena, hematemesis. She denies previous episodes of similar pain. Work up in the ED included a CT scan abd/pelvis showing possible colitis. Her WBC count was 12.2 and had a lactic acid of 2.3. She was admitted to the medical service for treatment of the colitis. She is NPO, on IVF and IV ceftriaxone and flagyl. Her WBC count is up this morning to 17.4. She reports the pain was slightly better after admission and analgesics but is back to being severe this morning. An ABD ultrasound was ordered which was unremarkable. Last colonoscopy 2018 ([facility])- internal hemorrhoids, diverticulitis. <HOWARD Carroll Last Filed: 07/27/22 12:41> Review of Systems Constitutional: Constitutional: Denies chills and Denies fever(s) <HOWARD Carroll Last Filed: 07/27/22 12:41> ENT: Denies dizziness <HOWARD Carroll Last Filed: 07/27/22 12:41> Cardiovascular: Cardiovascular: Denies chest pain, Denies palpitations and Denies dyspnea <HOWARD Carroll Last Filed: 07/27/22 12:41> Respiratory: Respiratory: Denies cough and Denies dyspnea <HOWARD Carroll Last Filed: 07/27/22 12:41> Gastrointestinal: Gastrointestinal: Reports as per HPI <Alem Rivas PA-C Last Filed: 07/27/22 12:41> Genitourinary: Genitourinary: Denies hematuria <Alem Rivas PA-C Last Filed: 07/27/22 12:41> Integumentary/Breasts: Skin/Breast: Denies rash and Denies jaundice <Alem Rivas PA-C Last Filed: 07/27/22 12:41> Neurologic: Denies dizziness <Alem Rivas PA-C Last Filed: 07/27/22 12:41> Endocrine: Endocrine: Denies palpitations <Alem Rivas PA-C Last Filed: 07/27/22 12:41> PMFSH Past Medical History Medical History: Medical History Hyperlipidemia Hypertension <Alem Rivas PA-C Last Filed: 07/27/22 12:41> Family History Family History: Family History Other No family history of coronary artery disease <Alem Rivas PA-C Last Filed: 07/27/22 12:41> Surgical History Surgical History: Surgical History H/O: hysterectomy <HOWARD Carroll Last Filed: 07/27/22 12:41> Social History Social History: Social History Advance Directives: No Advance Directives Information Provided: Yes service: No Current occupational status: retired <HOWARD Carroll Last Filed: 07/27/22 12:41> Meds Allergies/Adverse reactions: Allergies Allergy/AdvReac Type Severity Reaction Status Date / Time No Known Allergies Allergy Verified 07/25/22 21:23 <HOWARD Carroll Last Filed: 07/27/22 12:41> Active Medications: Current Medications Acetaminophen (Acetaminophen 325 Mg Tablet) 650 mg PO Q6H PRN PRN Reason: Pain, Mild (Pain Scale 1-3) Atenolol (Atenolol 50 Mg Tablet) 50 mg PO DAILY [facility]; Protocol Last Admin: 07/27/22 08:52 Dose: 50 mg Heparin Sodium (Porcine) (Heparin Sodium,Porcine 5,000 Unit/Ml Vial) 5,000 unit SUBCUT Q12H [facility] Last Admin: 07/27/22 05:29 Dose: 5,000 unit Ceftriaxone Sodium 1 gm/ (Sodium Chloride) 50 mls @ 100 mls/hr IV Q24H [facility] Last Infusion: 07/27/22 07:43 Dose: Infused Metronidazole (Flagyl) 500 mg in 100 mls @ 100 mls/hr IV Q8H [facility] Last Infusion: 07/27/22 07:43 Dose: Infused Dextrose/Lactated Ringer's (D5lr) 1,000 mls @ 100 mls/hr IVCONT .Q10H [facility] Last Infusion: 07/27/22 07:44 Dose: 100 mls/hr Metoclopramide HCl (Metoclopramide Hcl 10 Mg/2 Ml Vial) 5 mg IVPUSH Q6H PRN PRN Reason: Nausea Last Admin: 07/27/22 08:52 Dose: 5 mg Morphine Sulfate (Morphine Sulfate 4 Mg/Ml Cartridge) 4 mg IVPUSH Q4H PRN; Protocol PRN Reason: Pain, Severe (Pain Scale 7-10) Last Admin: 07/27/22 08:53 Dose: 4 mg Omeprazole (Omeprazole 20 Mg Capsule.Dr) 20 mg PO SuTuTh@0630 [facility] Last Admin: 07/27/22 05:29 Dose: 20 mg Oxycodone HCl (Oxycodone Hcl Immed Release 5 Mg Tablet) 5 mg PO Q6H PRN PRN Reason: Pain, Severe (Pain Scale 7-10) Last Admin: 07/27/22 04:36 Dose: 5 mg Pharmacy Consult (Consult Rx Perform Med Rec) 1 each MISCELLANE ONCE PRN PRN Reason: Consult order Sodium Chloride (0.9 % Sodium Chloride Flush 3 Ml Syringe) 3 ml IVFLUSH QSHIFT [facility] Last Admin: 07/27/22 05:32 Dose: 3 ml <Alem Rivas PA-C - Last Filed: 07/27/22 12:41> Home medications: Home Medications Medication Instructions Recorded Confirmed Last Taken Type atenolol 50 mg tablet 1 tab PO DAILY 07/26/22 07/26/22 07/25/22 History fluticasone propionate 50 1 spray intranasal DAILY 07/26/22 07/26/22 07/25/22 History mcg/actuation nasal spray,suspension lisinopril 40 mg tablet 1 tab PO DAILY 07/26/22 07/26/22 07/25/22 History magnesium oxide 400 mg (241.3 mg 1 tab PO BEDTIME 07/26/22 07/26/22 07/25/22 History magnesium) tablet omeprazole 20 mg capsule,delayed 1 cap PO SUTUTH 07/26/22 07/26/22 07/25/22 Hi story release <HOWARD Carroll Last Filed: 07/27/22 12:41> Physical Exam Vital Signs: Vital Signs: Last Vital Signs Temp 98.5 F 07/27/22 11:14 Pulse 85 07/27/22 11:14 Resp 16 07/27/22 11:14 BP 144/77 H 07/27/22 11:14 Pulse Ox 97 07/27/22 11:14 O2 Del Method 07/27/22 11:14 O2 Flow Rate 3 07/27/22 11:14 BMI result Body Mass Index 28.9 <HOWARD Carroll Last Filed: 07/27/22 12:41> Const: General: comfortable, no acute distress and alert <HOWARD Carroll Last Filed: 07/27/22 12:41> Orientation/consciousness: patient oriented x3 <HOWARD Carroll Last Filed: 07/27/22 12:41> Resp: Effort & Inspection: normal respiratory effort <HOWARD Carroll Last Filed: 07/27/22 12:41> Cardio: Rate: regular rate <HOWARD Carroll Last Filed: 07/27/22 12:41> GI: Inspection: No distended and No scar <HOWARD Carroll Last Filed: 07/27/22 12:41> Palpation (GI): Soft to palpation, Tenderness to palpation present (GI) (upper abdomen, most significant at epigastric area), no guarding and not rigid <HOWARD Carroll Last Filed: 07/27/22 12:41> Percussion: Yes normal to percussion <HOWARD Carroll Last Filed: 07/27/22 12:41> Skin: General skin exam: no rashes or lesions noted <HOWARD Carroll Last Filed: 07/27/22 12:41> Neuro: General: patient oriented x3 and moves all extremities <HOWARD Carroll Last Filed: 07/27/22 12:41> Extrem: General: Yes no clubbing, cyanosis or edema <HOWARD Carroll Last Filed: 07/27/22 12:41> Results Labs Result diagrams: : 07/27/22 04:41 07/27/22 04:41 <HOWARD Carroll Last Filed: 07/27/22 12:41> Labs: Abnormal lab results 07/27/22 07/27/22 Range/Units 04:41 04:41 WBC 17.4 H (4.8-10.8) X10*3/uL MPV 8.7 L (9.4-12.3) fL Immature Gran % (Auto) 1.5 H (0.0-0.4) % Neut % (Auto) 84.5 H (45-73) % Lymph % (Auto) 5.4 L (20-40) % Lymph # (Auto) 0.9 L (1.2-4.9) X10*3/uL [place] # (Auto) 1.4 H (0.1-1.2) X10*3/uL Abs Immat Gran (auto) 0.26 H (0.00-0.03) X10*3/uL Absolute Neuts (auto) 14.7 H (2.0-8.3) x10*3/uL Sodium 133 L (135-145) mmol/L BUN 20 H (9-16) mg/dL Short CBC 07/27/22 Range/Units 04:41 WBC 17.4 H (4.8-10.8) X10*3/uL Hgb 13.2 (12.0-16.0) g/dl Hct 39.0 (37.0-47.0) % Plt Count 227 (160-400) X10*3/uL BMP 07/27/22 04:41 Sodium 133 L Potassium 3.9 Chloride 97 Carbon Dioxide 25 BUN 20 H Creatinine 0.95 Calcium 9.6 Urine 07/25/22 Range/Units 21:40 Urine Color Yellow Urine Appearance Clear Urine pH 5.5 (5.0-9.0) Ur Specific [place] 1.015 (1.005-1.025) Urine Protein Negative (Neg-Trace) mg/dL Urine Glucose (UA) Negative (Negative) mg/dL All other labs normal. <Alem Rivas PA-C - Last Filed: 07/27/22 12:41> Assessment and Plan (1) Acute colitis: Status: Acute <Alem Rivas PA-C - Last Filed: 07/27/22 12:41> Patient admitted because of abdominal pain I have reviewed her CAT scan - mild inflammatory changes noted on the hepatic flexure with what appeared to to be a diverticulum suggestive of acute diverticulitis in this area she otherwise has a benign exam would continue with bowel rest IV antibiotics her exam is otherwise benign will follow along while he she is in the hospital explained plan to patient see <Emir Banks MD - Last Filed: 07/27/22 13:00> 72 year old female admitted with severe upper abdominal pain and vomiting with leukocytosis and lactic acidosis on labs and CT scan showing wall thickening of the colon in the hepatic flexure (formal report pending). She was admitted to the medical service for further treatment. Her abdomen is actually very benign and she is non toxic appearing. Would recommend conservative measures of IVF, IV abx and bowel rest. No current surgical intervention needed. Will continue to follow. Case discussed with Dr. Banks. <Alem Rivas PA-C - Last Filed: 07/27/22 12:41> Procedures Date of Service Date of Service: 07/27/22 <Alem Rivas PA-C - Last Filed: 07/27/22 12:41>
--- NOTE | 2022-07-27 14:54 | HO.PM.IMPN ---
Subjective Subjective Date of Service: 07/27/22 Interval History: Patient complained of worsening right upper quadrant abdominal pain associated with nausea therefore treated with morphine and antiemetics with some relief in symptoms, patient is NPO, no fever chills no diarrhea, WBC bumped to 17,000 Review of Systems General no headache, no dizziness no fever chills. CVS no chest pain, no palpitation. Respiratory no cough, no sob Review of Systems: Yes all other systems are reviewed and are negative Physical Exam Vital Signs: Vital Signs: Last Vital Signs Temp 98.5 F 07/27/22 12:00 Pulse 85 07/27/22 12:00 Resp 16 07/27/22 12:00 BP 144/77 H 07/27/22 12:00 Pulse Ox 97 07/27/22 12:00 O2 Del Method 07/27/22 12:00 O2 Flow Rate 3 07/27/22 12:00 BMI result Body Mass Index 28.9 Const: Other: General awake alert x3 in no acute distress. Neck no JVD. CVS regular rate rhythm, Respiratory lungs clear to auscultation, no respiratory distress, no wheeze, no rhonchi. Gastrointestinal abdomen soft, tenderness epigastric and right upper quadrant, no guarding no rigidity no rebound Extremities no edema. Neuro nonfocal Skin no rash Psych appropriate affect Objective Data Active Medications Acetaminophen (Acetaminophen 325 Mg Tablet) 650 mg PO Q6H PRN PRN Reason: Pain, Mild (Pain Scale 1-3) Atenolol (Atenolol 50 Mg Tablet) 50 mg PO DAILY [facility]; Protocol Last Admin: 07/27/22 08:52 Dose: 50 mg Documented By: RASHAUN Heparin Sodium (Porcine) (Heparin Sodium,Porcine 5,000 Unit/Ml Vial) 5,000 unit SUBCUT Q12H [facility] Last Admin: 07/27/22 05:29 Dose: 5,000 unit Documented By: RASHAUN Ceftriaxone Sodium 1 gm/ (Sodium Chloride) 50 mls @ 100 mls/hr IV Q24H [facility] Last Infusion: 07/27/22 07:43 Dose: 0 mls/hr Documented By: RASHAUN Metronidazole (Flagyl) 500 mg in 100 mls @ 100 mls/hr IV Q8H [facility] Last Infusion: 07/27/22 07:43 Dose: 0 mls/hr Documented By: RASHAUN Dextrose/Lactated Ringer's (D5lr) 1,000 mls @ 100 mls/hr IVCONT .Q10H [facility] Last Infusion: 07/27/22 07:44 Dose: 100 mls/hr Documented By: RASHAUN Metoclopramide HCl (Metoclopramide Hcl 10 Mg/2 Ml Vial) 5 mg IVPUSH Q6H PRN PRN Reason: Nausea Last Admin: 07/27/22 08:52 Dose: 5 mg Documented By: RASHAUN Morphine Sulfate (Morphine Sulfate 4 Mg/Ml Cartridge) 4 mg IVPUSH Q4H PRN; Protocol PRN Reason: Pain, Severe (Pain Scale 7-10) Last Admin: 07/27/22 08:53 Dose: 4 mg Documented By: RASHAUN Omeprazole (Omeprazole 20 Mg Capsule.Dr) 20 mg PO SuTuTh@0630 [facility] Last Admin: 07/27/22 05:29 Dose: 20 mg Documented By: RASHAUN Oxycodone HCl (Oxycodone Hcl Immed Release 5 Mg Tablet) 5 mg PO Q6H PRN PRN Reason: Pain, Severe (Pain Scale 7-10) Last Admin: 07/27/22 04:36 Dose: 5 mg Documented By: RASHAUN Pharmacy Consult (Consult Rx Perform Med Rec) 1 each MISCELLANE ONCE PRN PRN Reason: Consult order Sodium Chloride (0.9 % Sodium Chloride Flush 3 Ml Syringe) [facility] Last Admin: 07/27/22 05:32 Dose: 3 ml Documented By: RASHAUN Labs CBC & Chem 7: 07/27/22 04:41 07/27/22 04:41 Labs: Laboratory Results - last 24 hr 07/27/22 07/27/22 04:41 04:41 MCV 91.1 MCH 30.8 MCHC 33.8 RDW 12.6 Plt Count 227 MPV 8.7 L Immature Gran % (Auto) 1.5 H Neut % (Auto) 84.5 H Lymph % (Auto) 5.4 L [place] % (Auto) 8.3 Eos % (Auto) 0.0 Baso % (Auto) 0.3 Lymph # (Auto) 0.9 L [place] # (Auto) 1.4 H Eos # (Auto) 0.0 Baso # (Auto) 0.1 Abs Immat Gran (auto) 0.26 H Absolute Neuts (auto) 14.7 H Absolute Nucleated RBC 0.000 Nucleated RBC % (auto) 0.0 Anion Gap 15 Estim Creat Clear Calc 52.7 Estimated GFR 58 Random Glucose 104 Calcium 9.6 Microbiology Microbiology Results: Microbiology 07/26/22 02:14 Blood Culture - Preliminary Blood - Venous No growth after 24 hours. 07/26/22 02:14 Blood Culture - Preliminary Blood - Venous No growth after 24 hours. Assessment and Plan (1) Diverticulitis: Status: Acute (2) Lactic acidosis: Status: Acute Plan 72-year-old female with past medical history of hypertension, hyperlipidemia presents to the hospital with abdominal pain found to have acute diverticulitis #? sepsis related to acute abdominal pain due to diverticulitis ? ? Patient abdominal pain worsened this morning , WBC bumped to 17,000, pain improved with IV Reglan and IV morphine Abdominal ultrasound obtained that is unremarkable -?? CT abdomen? suggestive of diverticulitis, lipase normal LFTs unremarkable -?? continue NPO, IV fluids and IV Flagyl and ceftriaxone day 2 Surgical consult obtained the agree with above treatment plan #? lactic acidosis resolved status post IV fluids #? hypertension -? stable -? continue home meds? atenolol 50 mg daily, hold lisinopril 40 mg follow blood pressure closely. ?DVT prophylaxis: Heparin subQ Patient need continued inpatient hospitalization for acute diverticulitis requiring IV analgesics and IV fluids since remains NPO. Quality Stroke Does the patient have a stroke diagnosis?: No VTE Prior VTE?: No VTE Risk Level:: Medical - moderate - high VTE Device Contraindication: Treatment Not Indicated VTE Drug Contraindication: N/A - Med Ordered
[2022-07-28] MEDS: Metoclopramide HCl 10 MG/2 ML VIAL 5 MG IVPUSH (03:39)
[2022-07-28] MEDS: Morphine Sulfate 4 MG/ML CARTRIDGE IVPUSH (03:40)
[2022-07-28] MEDS: Dextrose 5 % and Lactated Ring 1,000 ML 100 ML IVCONT (03:43)
[2022-07-28 03:51] VITALS: BP 150/90; PULSE 89; RESP 20; TEMP 36.7; O2SAT 93
[2022-07-28] MEDS: Heparin Sodium,Porcine 5,000 UNIT/ML VIAL 5000 UNIT SUBCUT ×2 (05:55→18:07)
[2022-07-28] MEDS: cefTRIAXone sodium 1 GM in 0.9 % Sodium Chloride 50 ML IV (05:55)
[2022-07-28 06:21] LABS: Hematocrit 34.6 % (37.0-47.0); Hemoglobin 11.6 g/dl (12.0-16.0); Mean Corpuscular HGB Conc 33.5 g/dl (31.0-35.0); Mean Corpuscular Hemoglobin 30.9 pg (27.0-33.0); Mean Corpuscular Volume 92.3 fL (80.0-98.0); Mean Platelet Volume 9.4 fL (9.4-12.3); Platelet Count 184 X10*3/uL (160-400); Red Blood Count 3.75 X10*6/uL (4.20-5.50); Red Cell Distribution Width 12.4 % (11.0-16.0); White Blood Count 12.9 X10*3/uL (4.8-10.8)
[2022-07-28] MEDS: metroNIDAZOLE/NS 500 MG/100 ML PIGGYBACK 100 MG IV ×3 (06:27→23:16)
[2022-07-28 06:44] LABS: Anion Gap 12 (12-20); Blood Urea Nitrogen 18 mg/dL (9-16); Calcium 8.7 mg/dL (8.4-10.2); Carbon Dioxide 26 mmol/L (22-29); Chloride 99 mmol/L (96-108); Creatinine Clr Calc Pharmacy 59.7; Estimated Glomerular Filt Rate > 60; Glucose Random 130 mg/dL (60-115); Potassium 3.1 mmol/L (3.3-5.1); Sodium 134 mmol/L (135-145)
[2022-07-28 08:00] VITALS: BP 116/66; PULSE 81; RESP 18; TEMP 36.8; O2SAT 95
[2022-07-28] MEDS: atenoloL 50 MG TABLET PO (09:08)
[2022-07-28] MEDS: 0.9 % Sodium Chloride Flush 3 ML SYRINGE IVFLUSH (09:12)
--- NOTE | 2022-07-28 10:48 | P.PNGS_ITS ---
Subjective Subjective Date of Service: 07/28/22 Interval history: says she has discomfort on abdomen pain better she want to start drinking liquids Physical Exam Vital Signs: Vital Signs: Last Vital Signs Temp 98.3 F 07/28/22 08:00 Pulse 81 07/28/22 08:00 Resp 18 07/28/22 08:00 BP 116/66 07/28/22 08:00 Pulse Ox 95 07/28/22 08:00 O2 Del Method 07/28/22 08:00 O2 Flow Rate 3 07/28/22 08:00 BMI result Body Mass Index 28.9 Const: General: comfortable and no acute distress Resp: Effort & Inspection: normal respiratory effort Cardio: Rate: regular rate GI: Other: mild tenderness upper abdomen Palpation (GI): Soft to palpation, not firm, no guarding and not rigid Objective Data Active Medications Acetaminophen (Acetaminophen 325 Mg Tablet) 650 mg PO Q6H PRN PRN Reason: Pain, Mild (Pain Scale 1-3) Atenolol (Atenolol 50 Mg Tablet) 50 mg PO DAILY [facility]; Protocol Last Admin: 07/28/22 09:08 Dose: 50 mg Documented By: RAYSHAWN Heparin Sodium (Porcine) (Heparin Sodium,Porcine 5,000 Unit/Ml Vial) 5,000 unit SUBCUT Q12H [facility] Last Admin: 07/28/22 05:55 Dose: 5,000 unit Documented By: JEAN-CLAUDE Ceftriaxone Sodium 1 gm/ (Sodium Chloride) 50 mls @ 100 mls/hr IV Q24H [facility] Last Infusion: 07/28/22 06:27 Dose: 0 mls/hr Documented By: JEAN-CLAUDE Metronidazole (Flagyl) 500 mg in 100 mls @ 100 mls/hr IV Q8H [facility] Last Infusion: 07/28/22 09:12 Dose: 0 mls/hr Documented By: RAYSHAWN Dextrose/Lactated Ringer's (D5lr) 1,000 mls @ 100 mls/hr IVCONT .Q10H [facility] Last Admin: 07/28/22 03:43 Dose: 100 mls/hr Documented By: JEAN-CLAUDE Metoclopramide HCl (Metoclopramide Hcl 10 Mg/2 Ml Vial) 5 mg IVPUSH Q6H PRN PRN Reason: Nausea Last Admin: 07/28/22 03:39 Dose: 5 mg Documented By: JEAN-CLAUDE Morphine Sulfate (Morphine Sulfate 4 Mg/Ml Cartridge) 4 mg IVPUSH Q4H PRN; Protocol PRN Reason: Pain, Severe (Pain Scale 7-10) Last Admin: 07/28/22 03:40 Dose: 4 mg Documented By: JEAN-CLAUDE Omeprazole (Omeprazole 20 Mg Capsule.) 20 mg PO SuTuTh@0630 [facility] Last Admin: 07/27/22 05:29 Dose: 20 mg Documented By: RASHAUN Oxycodone HCl (Oxycodone Hcl Immed Release 5 Mg Tablet) 5 mg PO Q6H PRN PRN Reason: Pain, Severe (Pain Scale 7-10) Last Admin: 07/27/22 15:20 Dose: 5 mg Documented By: RASHAUN Pharmacy Consult (Consult Rx Perform Med Rec) 1 each MISCELLANE ONCE PRN PRN Reason: Consult order Sodium Chloride (0.9 % Sodium Chloride Flush 3 Ml Syringe) 3 ml IVFLUSH [facility] Last Admin: 07/28/22 09:12 Dose: 3 ml Documented By: RAYSHAWN Labs CBC & Chem 7: 07/28/22 05:21 07/28/22 05:21 Labs: Laboratory Results - last 24 hr 07/28/22 07/28/22 05:21 05:21 MCV 92.3 MCH 30.9 MCHC 33.5 RDW 12.4 Plt Count 184 MPV 9.4 Absolute Nucleated RBC 0.000 Nucleated RBC % (auto) 0.0 Anion Gap 12 Estim Creat Clear Calc 59.7 Estimated GFR > 60 Random Glucose 130 H Calcium 8.7 D Microbiology Microbiology Results: Microbiology 07/26/22 02:14 Blood Culture - Preliminary Blood - Venous No growth after 24 hours. 07/26/22 02:14 Blood Culture - Preliminary Blood - Venous No growth after 24 hours. Procedures Date of Service Date of Service: 07/28/22 Progress Note: A&P Assessment and plan (1) Diverticulitis: Status: Acute Assessment and Plan: inflammatory changes along hepatic flexure suggestive of diverticulitis, ?segmental colitis pain better WBC down exam remains benign US unremarkable ok to try clear liquids today Time Spent With Patient Time: Total time spent is greater than 50% in coordination of care (as documented) at patient's floor/unit and/or counseling patient: Quality Stroke Does the patient have a stroke diagnosis?: No VTE Prior VTE?: No VTE Risk Level:: Medical - moderate - high VTE Device Contraindication: Treatment Not Indicated VTE Drug Contraindication: N/A - Med Ordered
[2022-07-28] MEDS: Pseudoephedrine HCL 30 MG TABLET PO (11:25)
--- NOTE | 2022-07-28 12:01 | P.PNIM_ITS ---
Subjective Subjective Date of Service: 07/29/22 Interval History: had right upper quadrant abdominal pain took 1 dose of morphine with good affect currently feeling better no nausea no vomiting, no fevers no chills, no diarrhea no other acute issues. Review of Systems General no headache no dizziness no fever chills. CVS no chest pain, no palpitation. Respiratory no cough no sob. Review of Systems: Yes all other systems are reviewed and are negative Physical Exam Vital Signs: Vital Signs: Last Vital Signs Temp 98.3 F 07/28/22 08:00 Pulse 81 07/28/22 08:00 Resp 18 07/28/22 08:00 BP 116/66 07/28/22 08:00 Pulse Ox 95 07/28/22 08:00 O2 Del Method 07/28/22 08:00 O2 Flow Rate 3 07/28/22 08:00 BMI result Body Mass Index 28.9 Const: Other: General awake alert x3 in no acute distress.? Neck no JVD. CVS? regular rate rhythm, Respiratory lungs clear to auscultation, no respiratory distress, no wheeze, no rhonchi. Gastrointestinal abdomen soft, tenderness right upper quadrant, no guarding no rigidity no rebound Extremities no? edema. Neuro nonfocal Skin no rash Psych appropriate affect Objective Data Active Medications Acetaminophen (Acetaminophen 325 Mg Tablet) 650 mg PO Q6H PRN PRN Reason: Pain, Mild (Pain Scale 1-3) Atenolol (Atenolol 50 Mg Tablet) 50 mg PO DAILY [facility]; Protocol Last Admin: 07/28/22 09:08 Dose: 50 mg Documented By: RAYSHAWN Heparin Sodium (Porcine) (Heparin Sodium,Porcine 5,000 Unit/Ml Vial) 5,000 unit SUBCUT Q12H [facility] Last Admin: 07/28/22 05:55 Dose: 5,000 unit Documented By: JEAN-CLAUDE Ceftriaxone Sodium 1 gm/ (Sodium Chloride) 50 mls @ 100 mls/hr IV Q24H [facility] Last Infusion: 07/28/22 06:27 Dose: 0 mls/hr Documented By: JEAN-CLAUDE Metronidazole (Flagyl) 500 mg in 100 mls @ 100 mls/hr IV Q8H [facility] Last Infusion: 07/28/22 09:12 Dose: 0 mls/hr Documented By: RAYSHAWN Dextrose/Lactated Ringer's (D5lr) 1,000 mls @ 100 mls/hr IVCONT .Q10H [facility] Last Admin: 07/28/22 03:43 Dose: 100 mls/hr Documented By: JEAN-CLAUDE Metoclopramide HCl (Metoclopramide Hcl 10 Mg/2 Ml Vial) 5 mg IVPUSH Q6H PRN PRN Reason: Nausea Last Admin: 07/28/22 03:39 Dose: 5 mg Documented By: JEAN-CLAUDE Morphine Sulfate (Morphine Sulfate 4 Mg/Ml Cartridge) 4 mg IVPUSH Q4H PRN; Protocol PRN Reason: Pain, Severe (Pain Scale 7-10) Last Admin: 07/28/22 03:40 Dose: 4 mg Documented By: JEAN-CLAUDE Omeprazole (Omeprazole 20 Mg Capsule.Dr) 20 mg PO SuTuTh@0630 [facility] Last Admin: 07/27/22 05:29 Dose: 20 mg Documented By: RASHAUN Oxycodone HCl (Oxycodone Hcl Immed Release 5 Mg Tablet) 5 mg PO Q6H PRN PRN Reason: Pain, Severe (Pain Scale 7-10) Last Admin: 07/27/22 15:20 Dose: 5 mg Documented By: RASHAUN Pharmacy Consult (Consult Rx Perform Med Rec) 1 each MISCELLANE ONCE PRN PRN Reason: Consult order Sodium Chloride (0.9 % Sodium Chloride Flush 3 Ml Syringe) 3 ml IVFLUSH QSHIFT [facility] Last Admin: 07/28/22 09:12 Dose: 3 ml Documented By: RAYSHAWN Labs CBC & Chem 7: 07/28/22 05:21 07/28/22 05:21 Labs: Laboratory Results - last 24 hr 07/28/22 07/28/22 05:21 05:21 MCV 92.3 MCH 30.9 MCHC 33.5 RDW 12.4 Plt Count 184 MPV 9.4 Absolute Nucleated RBC 0.000 Nucleated RBC % (auto) 0.0 Anion Gap 12 Estim Creat Clear Calc 59.7 Estimated GFR > 60 Random Glucose 130 H Calcium 8.7 D Microbiology Microbiology Results: Microbiology 07/26/22 02:14 Blood Culture - Preliminary Blood - Venous No growth after 48 hours. 07/26/22 02:14 Blood Culture - Preliminary Blood - Venous No growth after 48 hours. Assessment and Plan (1) Diverticulitis: Status: Acute (2) Lactic acidosis: Status: Acute Plan 72-year-old female with past medical history of hypertension, hyperlipidemia presents to the hospital with abdominal pain found to have acute diverticulitis #? sepsis related to acute abdominal pain due to diverticulitis ? ? Patient abdominal pain Improving WBC trending down, continue IV Reglan and IV morphine Abdominal ultrasound obtained that is unremarkable -?? CT abdomen? suggestive of diverticulitis, lipase normal LFTs unremarkable -?? will place on IV fluids continue IV fluids and IV Flagyl and ceftriaxone day 3 Surgical consult obtained the agree with above treatment plan #? lactic acidosis resolved status post IV fluids #? hypertension -? stable -? continue home meds? atenolol 50 mg daily, few high blood pressure readings will resume lisinopril 40 mg follow blood pressure closely. ?DVT prophylaxis: Heparin subQ Patient need continued inpatient hospitalization for acute diverticulitis requiring IV analgesics and IV fluids Quality Stroke Does the patient have a stroke diagnosis?: No VTE Prior VTE?: No VTE Risk Level:: Medical - moderate - high VTE Device Contraindication: Treatment Not Indicated VTE Drug Contraindication: N/A - Med Ordered
[2022-07-28] MEDS: Acetaminophen 325 MG TABLET 650 MG PO (14:07)
[2022-07-28 15:01] VITALS: BP 121/61; PULSE 78; RESP 19; TEMP 36.5; O2SAT 96
[2022-07-28] MEDS: Dextrose 5 % and Lactated Ring 1,000 ML 80 ML IVCONT (16:19)
[2022-07-28 19:02] VITALS: BP 137/67; PULSE 80; RESP 18; TEMP 36.7; O2SAT 97
[2022-07-29] MEDS: Morphine Sulfate 4 MG/ML CARTRIDGE IVPUSH ×3 (00:19→23:05)
[2022-07-29 03:46] VITALS: BP 160/67; PULSE 78; RESP 16; TEMP 36.4; O2SAT 96
[2022-07-29] MEDS: Dextrose 5 % and Lactated Ring 1,000 ML 80 ML IVCONT (03:56)
[2022-07-29] MEDS: cefTRIAXone sodium 1 GM in 0.9 % Sodium Chloride 50 ML IV (05:58)
[2022-07-29] MEDS: Heparin Sodium,Porcine 5,000 UNIT/ML VIAL 5000 UNIT SUBCUT ×2 (06:02→18:21)
[2022-07-29] MEDS: metroNIDAZOLE/NS 500 MG/100 ML PIGGYBACK 100 MG IV ×3 (06:36→23:02)
[2022-07-29 07:47] VITALS: BP 140/70; PULSE 79; RESP 12; TEMP 36.8; O2SAT 96
[2022-07-29] MEDS: atenoloL 50 MG TABLET PO (09:09)
[2022-07-29] MEDS: 0.9 % Sodium Chloride Flush 3 ML SYRINGE IVFLUSH ×2 (09:10→16:59)
--- NOTE | 2022-07-29 09:34 | P.PNGS_ITS ---
Subjective Subjective Date of Service: 07/29/22 Interval history: started on clear liquids yesterday but did note some increased abdominal pain mainly in the right upper quadrant. She denied nausea or vomiting but is not interested in increasing her diet today. Physical Exam Vital Signs: Vital Signs: Last Vital Signs Temp 98.2 F 07/29/22 07:47 Pulse 79 07/29/22 07:47 Resp 12 07/29/22 07:47 BP 140/70 H 07/29/22 07:47 Pulse Ox 96 07/29/22 07:47 O2 Del Method 07/29/22 07:47 O2 Flow Rate 3 07/29/22 07:47 BMI result Body Mass Index 28.9 Const: General: no acute distress Nutritional Appearance: well nourished Orientation/consciousness: patient oriented x3 Limitations: no limitations Resp: Effort & Inspection: normal respiratory effort, no audible wheezes, no cough and no respiratory distress GI: Inspection: Yes normal to inspection Palpation (GI): Soft to palpation, Tenderness to palpation present (GI) in the RUQ; with no rebound tenderness, no guarding and No Rebound tenderness present Percussion: Yes normal to percussion Auscultation: normal bowel sounds Skin: Other: Warm, dry, no rash Neuro: General: patient oriented x3 Objective Data Active Medications Acetaminophen (Acetaminophen 325 Mg Tablet) 650 mg PO Q6H PRN PRN Reason: Pain, Mild (Pain Scale 1-3) Last Admin: 07/28/22 14:07 Dose: 650 mg Documented By: TARA Atenolol (Atenolol 50 Mg Tablet) 50 mg PO DAILY [facility]; Protocol Last Admin: 07/29/22 09:09 Dose: 50 mg Documented By: BILL Heparin Sodium (Porcine) (Heparin Sodium,Porcine 5,000 Unit/Ml Vial) 5,000 unit SUBCUT Q12H [facility] Last Admin: 07/29/22 06:02 Dose: 5,000 unit Documented By: LEROY Ceftriaxone Sodium 1 gm/ (Sodium Chloride) 50 mls @ 100 mls/hr IV Q24H [facility] Last Infusion: 07/29/22 06:33 Dose: 0 mls/hr Documented By: LEROY Metronidazole (Flagyl) 500 mg in 100 mls @ 100 mls/hr IV Q8H [facility] Last Infusion: 07/29/22 08:16 Dose: 0 mls/hr Documented By: BILL Dextrose/Lactated Ringer's (D5lr) 1,000 mls @ 80 mls/hr IVCONT .[id number] [facility] Last Infusion: 07/29/22 09:10 Dose: 80 mls/hr Documented By: BILL Metoclopramide HCl (Metoclopramide Hcl 10 Mg/2 Ml Vial) 5 mg IVPUSH Q6H PRN PRN Reason: Nausea Last Admin: 07/28/22 03:39 Dose: 5 mg Documented By: JEAN-CLAUDE Morphine Sulfate (Morphine Sulfate 4 Mg/Ml Cartridge) 4 mg IVPUSH Q4H PRN; Protocol PRN Reason: Pain, Severe (Pain Scale 7-10) Last Admin: 07/29/22 06:36 Dose: 4 mg Documented By: LEROY Omeprazole (Omeprazole 20 Mg Capsule.Dr) 20 mg PO SuTuTh@0630 [facility] Last Admin: 07/27/22 05:29 Dose: 20 mg Documented By: RASHAUN Oxycodone HCl (Oxycodone Hcl Immed Release 5 Mg Tablet) 5 mg PO Q6H PRN PRN Reason: Pain, Severe (Pain Scale 7-10) Last Admin: 07/27/22 15:20 Dose: 5 mg Documented By: RASHAUN Pharmacy Consult (Consult Rx Perform Med Rec) 1 each MISCELLANE ONCE PRN PRN Reason: Consult order Sodium Chloride (0.9 % Sodium Chloride Flush 3 Ml [facility]) [facility] Last Admin: 07/29/22 09:10 Dose: 3 ml Documented By: BILL Labs CBC & Chem 7: 07/28/22 05:21 07/28/22 05:21 Microbiology Microbiology Results: Microbiology 07/26/22 02:14 Blood Culture - Preliminary Blood - Venous No growth after 48 hours. 07/26/22 02:14 Blood Culture - Preliminary Blood - Venous No growth after 48 hours. Procedures Date of Service Date of Service: 07/29/22 Progress Note: A&P Assessment and plan (1) Diverticulitis: Status: Acute Plan 72-year-old female patient with previous history of sigmoid diverticulitis now with diverticulitis involving the hepatic flexure. Overall she is improved but did have some increased abdominal pain with clear liquids. Will keep on clear liquids for today. Continue IV antibiotics. Recheck WBC in the a.m.. Time Spent With Patient Time: Total time spent is greater than 50% in coordination of care (as documented) at patient's floor/unit and/or counseling patient: Quality Stroke Does the patient have a stroke diagnosis?: No VTE Prior VTE?: No VTE Risk Level:: Medical - moderate - high VTE Device Contraindication: Treatment Not Indicated VTE Drug Contraindication: N/A - Med Ordered
[2022-07-29 10:00] VITALS: O2SAT 95
--- NOTE | 2022-07-29 11:40 | HO.PM.IMPN ---
Subjective Subjective Date of Service: 07/29/22 Interval History: had couple episodes of right upper quadrant abdominal pain required IV morphine for pain control this morning pain is better, has no appetite denies nausea vomiting not drinking much of clear liquids no other acute overnight events, no fevers no chills, complaining of nasal congestion history of nose bleeds. Review of Systems General no headache no dizziness no fever chills.? CVS no chest pain, no palpitation.? Respiratory no cough no sob.? Review of Systems: Yes all other systems are reviewed and are negative Physical Exam Vital Signs: Vital Signs: Last Vital Signs Temp 98.2 F 07/29/22 07:47 Pulse 79 07/29/22 07:47 Resp 12 07/29/22 07:47 BP 140/70 H 07/29/22 07:47 Pulse Ox 96 07/29/22 07:47 O2 Del Method 07/29/22 07:47 O2 Flow Rate 3 07/29/22 07:47 BMI result Body Mass Index 28.9 Const: Other: General awake alert x3 in no acute distress.? Neck no JVD. CVS? regular rate rhythm, Respiratory lungs clear to auscultation, no respiratory distress, no wheeze, no rhonchi. Gastrointestinal abdomen soft, tenderness right upper quadrant, no guarding, no rigidity no rebound Extremities no? edema. Neuro nonfocal Skin no rash Psych appropriate affect Objective Data Active Medications Acetaminophen (Acetaminophen 325 Mg Tablet) 650 mg PO Q6H PRN PRN Reason: Pain, Mild (Pain Scale 1-3) Last Admin: 07/28/22 14:07 Dose: 650 mg Documented By: TARA Atenolol (Atenolol 50 Mg Tablet) 50 mg PO DAILY [facility]; Protocol Last Admin: 07/29/22 09:09 Dose: 50 mg Documented By: BILL Heparin Sodium (Porcine) (Heparin Sodium,Porcine 5,000 Unit/Ml Vial) 5,000 unit SUBCUT Q12H [facility] Last Admin: 07/29/22 06:02 Dose: 5,000 unit Documented By: LEROY Ceftriaxone Sodium 1 gm/ (Sodium Chloride) 50 mls @ 100 mls/hr IV Q24H [facility] Last Infusion: 07/29/22 06:33 Dose: 0 mls/hr Documented By: LEROY Metronidazole (Flagyl) 500 mg in 100 mls @ 100 mls/hr IV Q8H [facility] Last Infusion: 07/29/22 08:16 Dose: 0 mls/hr Documented By: BILL Potassium Cl/Dextrose/Lact Ringer's (Kcl 20 Meq In 5 % Dex/Lact Rin) 20 meq in 1,000 mls @ 80 mls/hr IVCONT .[id number] [facility] Metoclopramide HCl (Metoclopramide Hcl 10 Mg/2 Ml Vial) 5 mg IVPUSH Q6H PRN PRN Reason: Nausea Last Admin: 07/28/22 03:39 Dose: 5 mg Documented By: JEAN-CLAUDE Morphine Sulfate (Morphine Sulfate 4 Mg/Ml Cartridge) 4 mg IVPUSH Q4H PRN; Protocol PRN Reason: Pain, Severe (Pain Scale 7-10) Last Admin: 07/29/22 06:36 Dose: 4 mg Documented By: LEROY Omeprazole (Omeprazole 20 Mg Capsule.Dr) 20 mg PO SuTuTh@0630 [facility] Last Admin: 07/27/22 05:29 Dose: 20 mg Documented By: RASHAUN Oxycodone HCl (Oxycodone Hcl Immed Release 5 Mg Tablet) 5 mg PO Q6H PRN PRN Reason: Pain, Severe (Pain Scale 7-10) Last Admin: 07/27/22 15:20 Dose: 5 mg Documented By: RASHAUN Pharmacy Consult (Consult Rx Perform Med Rec) 1 each MISCELLANE ONCE PRN PRN Reason: Consult order Sodium Chloride (0.9 % Sodium Chloride Flush 3 Ml Syringe) 3 ml IVFLUSH [facility] Last Admin: 07/29/22 09:10 Dose: 3 ml Documented By: BILL Labs CBC & Chem 7: 07/28/22 05:21 07/28/22 05:21 Microbiology Microbiology Results: Microbiology 07/26/22 02:14 Blood Culture - Preliminary Blood - Venous No growth after 48 hours. 07/26/22 02:14 Blood Culture - Preliminary Blood - Venous No growth after 48 hours. Assessment and Plan (1) Diverticulitis: Status: Acute (2) Lactic acidosis: Status: Acute Plan 72-year-old female with past medical history of hypertension, hyperlipidemia presents to the hospital with abdominal pain found to have acute diverticulitis #? sepsis related to acute abdominal pain due to diverticulitis ? ? intermittent abdomin pain, continue IV Reglan and IV morphine Abdominal ultrasound obtained that is unremarkable ?? CT abdomen? suggestive of diverticulitis, lipase normal LFTs unremarkable ?? continue IV fluids and IV Flagyl and ceftriaxone day 4 continue clear liquid diet, advanced gradually once pain improves Surgical consult obtained the agree with above treatment plan add saline spray for nasal congestion # hypokalemia potassium 3.1 will replete and repeat labs #? lactic acidosis resolved status post IV fluids #? hypertension -? stable -? continue home meds? atenolol 50 mg daily, few high blood pressure readings will resume lisinopril 20 mg follow blood pressure closely. ?DVT prophylaxis: Heparin subQ Patient need continued inpatient hospitalization for acute diverticulitis requiring IV analgesics and IV fluids Quality Stroke Does the patient have a stroke diagnosis?: No VTE Prior VTE?: No VTE Risk Level:: Medical - moderate - high VTE Device Contraindication: Treatment Not Indicated VTE Drug Contraindication: N/A - Med Ordered
[2022-07-29] MEDS: lisinopriL 20 MG TABLET PO (12:13)
[2022-07-29] MEDS: KCl 20 mEq in 5 % Dex/Lact Rin 20 MEQ/1,000 ML IV.SOLN 80 MEQ IVCONT (12:13)
[2022-07-29] MEDS: Potassium Chloride Packet 20 MEQ PACKET PO (12:13)
[2022-07-29] MEDS: oxyCODONE HCl Immed Release 5 MG TABLET PO (14:27)
[2022-07-29 15:08] VITALS: BP 130/62; PULSE 80; RESP 18; TEMP 37.3; O2SAT 97
[2022-07-29 19:44] VITALS: BP 137/71; PULSE 74; RESP 18; TEMP 37; O2SAT 98
[2022-07-29 23:40] VITALS: BP 142/75; PULSE 79; RESP 16; TEMP 37.6; O2SAT 96
[2022-07-30] MEDS: KCl 20 mEq in 5 % Dex/Lact Rin 20 MEQ/1,000 ML IV.SOLN 80 MEQ IVCONT (00:44)
[2022-07-30 03:35] VITALS: BP 156/78; PULSE 88; RESP 16; TEMP 37.6; O2SAT 96
[2022-07-30] MEDS: Heparin Sodium,Porcine 5,000 UNIT/ML VIAL 5000 UNIT SUBCUT ×2 (04:52→17:24)
[2022-07-30] MEDS: cefTRIAXone sodium 1 GM in 0.9 % Sodium Chloride 50 ML IV (04:52)
[2022-07-30] MEDS: Omeprazole 20 MG CAPSULE.DR PO (04:53)
[2022-07-30] MEDS: metroNIDAZOLE/NS 500 MG/100 ML PIGGYBACK 100 MG IV ×3 (05:42→22:13)
[2022-07-30 06:18] LABS: Basophils Absolute Auto 0.1 X10*3/uL (0.0-0.2); Basophils Percent Auto 0.4 % (0-2); Eosinophils Absolute Auto 0.1 X10*3/uL (0.0-0.4); Eosinophils Percent Auto 0.8 % (0-4); Hematocrit 32.9 % (37.0-47.0); Hemoglobin 11.2 g/dl (12.0-16.0); Imm Gran Abs Auto 0.12 X10*3/uL (0.00-0.03); Lymphocytes Absolute Auto 1.2 X10*3/uL (1.2-4.9); Lymphocytes Percent Auto 9.8 % (20-40); MANUAL DIFF FLAG SCAN; Mean Corpuscular Volume 91.1 fL (80.0-98.0); Mean Platelet Volume 9.3 fL (9.4-12.3); Monocytes Absolute Auto 2.4 X10*3/uL (0.1-1.2); Platelet Count 189 X10*3/uL (160-400); Red Blood Count 3.61 X10*6/uL (4.20-5.50); Red Cell Distribution Width 12.6 % (11.0-16.0); SCAN SMEAR FLAG 1; White Blood Count 11.8 X10*3/uL (4.8-10.8)
[2022-07-30 06:39] LABS: Anion Gap 14 (12-20); Blood Urea Nitrogen 17 mg/dL (9-16); Calcium 8.2 mg/dL (8.4-10.2); Carbon Dioxide 29 mmol/L (22-29); Chloride 98 mmol/L (96-108); Creatinine Clr Calc Pharmacy 70.6; Estimated Glomerular Filt Rate > 60; Glucose Random 89 mg/dL (60-115); Sodium 138 mmol/L (135-145)
[2022-07-30 06:46] LABS: SLIDE REVIEW VERIFIED
[2022-07-30 07:29] VITALS: BP 143/84; PULSE 80; RESP 16; TEMP 37.4; O2SAT 96
[2022-07-30] MEDS: Potassium Chloride Packet 20 MEQ PACKET 40 MEQ PO (08:20)
[2022-07-30] MEDS: 0.9 % Sodium Chloride Flush 3 ML SYRINGE IVFLUSH ×3 (08:20→22:14)
[2022-07-30] MEDS: atenoloL 50 MG TABLET PO (08:20)
[2022-07-30] MEDS: lisinopriL 20 MG TABLET PO (08:20)
--- NOTE | 2022-07-30 08:37 | P.PNGS_ITS ---
Subjective Subjective Date of Service: 07/30/22 Interval history: overall patient feels improved today with decreased abdominal pain. She was able to tolerate the liquid diet yesterday with minimal abdominal pain. She would like to try soft food today. Physical Exam Vital Signs: Vital Signs: Last Vital Signs Temp 99.4 F 07/30/22 07:29 Pulse 80 07/30/22 07:29 Resp 16 07/30/22 07:29 BP 143/84 H 07/30/22 07:29 Pulse Ox 96 07/30/22 07:29 O2 Del Method 07/30/22 07:29 O2 Flow Rate 2 07/30/22 07:29 BMI result Body Mass Index 28.9 Const: General: no acute distress Nutritional Appearance: well nourished Orientation/consciousness: patient oriented x3 Limitations: no limitations Resp: Effort & Inspection: normal respiratory effort, no audible wheezes, no cough and no respiratory distress GI: Inspection: Yes normal to inspection Palpation (GI): Soft to palpation, Tenderness to palpation present (GI) in the RUQ; with no rebound tenderness, no guarding and No Rebound tenderness present Percussion: Yes normal to percussion Auscultation: normal bowel sounds Skin: Other: Warm, dry, no rash Neuro: General: patient oriented x3 Objective Data Active Medications Acetaminophen (Acetaminophen 325 Mg Tablet) 650 mg PO Q6H PRN PRN Reason: Pain, Mild (Pain Scale 1-3) Last Admin: 07/28/22 14:07 Dose: 650 mg Documented By: TARA Atenolol (Atenolol 50 Mg Tablet) 50 mg PO DAILY [facility]; Protocol Last Admin: 07/30/22 08:20 Dose: 50 mg Documented By: BILL Heparin Sodium (Porcine) (Heparin Sodium,Porcine 5,000 Unit/Ml Vial) 5,000 unit SUBCUT Q12H [facility] Last Admin: 07/30/22 04:52 Dose: 5,000 unit Documented By: BALDEV Ceftriaxone Sodium 1 gm/ (Sodium Chloride) 50 mls @ 100 mls/hr IV Q24H [facility] Last Infusion: 07/30/22 06:19 Dose: 0 mls/hr Documented By: BALDEV Metronidazole (Flagyl) 500 mg in 100 mls @ 100 mls/hr IV Q8H [facility] Last Infusion: 07/30/22 07:23 Dose: 0 mls/hr Documented By: BILL Potassium Cl/Dextrose/Lact Ringer's (Kcl 20 Meq In 5 % Dex/Lact Rin) 20 meq in 1,000 mls @ 80 mls/hr IVCONT .[id number] [facility] Last Infusion: 07/30/22 08:22 Dose: 80 mls/hr Documented By: BILL Lisinopril (Lisinopril 20 Mg Tablet) 20 mg PO DAILY [facility]; Protocol Last Admin: 07/30/22 08:20 Dose: 20 mg Documented By: BILL Metoclopramide HCl (Metoclopramide Hcl 10 Mg/2 Ml Vial) 5 mg IVPUSH Q6H PRN PRN Reason: Nausea Last Admin: 07/28/22 03:39 Dose: 5 mg Documented By: JEAN-CLAUDE Morphine Sulfate (Morphine Sulfate 4 Mg/Ml Cartridge) 4 mg IVPUSH Q4H [facility]N; Protocol PRN Reason: Pain, Severe (Pain Scale 7-10) Last Admin: 07/29/22 23:05 Dose: 4 mg Documented By: BALDEV Omeprazole (Omeprazole 20 Mg Capsule.Dr) 20 mg PO SuTuTh@0630 [facility] Last Admin: 07/30/22 04:53 Dose: 20 mg Documented By: BALDEV Oxycodone HCl (Oxycodone Hcl Immed Release 5 Mg Tablet) 5 mg PO Q6H PRN PRN Reason: Pain, Severe (Pain Scale 7-10) Last Admin: 07/29/22 14:27 Dose: 5 mg Documented By: BILL Pharmacy Consult (Consult Rx Perform Med Rec) 1 each MISCELLANE ONCE PRN PRN Reason: Consult order Sodium Chloride (0.9 % Sodium Chloride Flush 3 Ml Syringe) 3 ml IVFLUSH QSHIFT [facility] Last Admin: 07/30/22 08:20 Dose: 3 ml Documented By: BILL Sodium Chloride (Sodium Chloride 0.65 % Nasal 44 Ml Sprbtl) 1 spray NOSTRIL-B Q1H PRN PRN Reason: Congestion Labs CBC & Chem 7: 07/30/22 05:35 07/30/22 05:35 Labs: Laboratory Results - last 24 hr 07/30/22 07/30/22 05:35 05:35 MCV 91.1 MCH 31.0 MCHC 34.0 RDW 12.6 Plt Count 189 MPV 9.3 L Immature Gran % (Auto) 1.0 H Neut % (Auto) 68.0 Lymph % (Auto) 9.8 L [place] % (Auto) 20.0 H Eos % (Auto) 0.8 Baso % (Auto) 0.4 Lymph # (Auto) 1.2 [place] # (Auto) 2.4 H Eos # (Auto) 0.1 Baso # (Auto) 0.1 Abs Immat Gran (auto) 0.12 H Absolute Neuts (auto) 8.0 Absolute Nucleated RBC 0.000 Nucleated RBC % (auto) 0.0 Smear Tech's Comments VERIFIED Anion Gap 14 Estim Creat Clear Calc 70.6 Estimated GFR > 60 Random Glucose 89 Calcium 8.2 L Procedures Date of Service Date of Service: 07/30/22 Progress Note: A&P Assessment and plan (1) Diverticulitis: Status: Acute Plan 72-year-old female patient with previous history of sigmoid diverticulitis now with diverticulitis involving the hepatic flexure. She has improved today with decreased abdominal pain. WBC is drifting downward. Abdominal exam is much improved. Will advance to a regular low-fiber diet. Encouraged out of bed and ambulation. Time Spent With Patient Time: Total time spent is greater than 50% in coordination of care (as documented) at patient's floor/unit and/or counseling patient: Quality Stroke Does the patient have a stroke diagnosis?: No VTE Prior VTE?: No VTE Risk Level:: Medical - moderate - high VTE Device Contraindication: Treatment Not Indicated VTE Drug Contraindication: N/A - Med Ordered
[2022-07-30 10:59] VITALS: BP 143/66; PULSE 83; RESP 16; TEMP 37.2; O2SAT 93
[2022-07-30] MEDS: Acetaminophen 325 MG TABLET 650 MG PO ×2 (11:34→17:24)
--- NOTE | 2022-07-30 12:13 | P.PNIM_ITS ---
Subjective Subjective Date of Service: 07/30/22 Interval History: Feeling better this morning less abdominal pain no nausea, no vomiting, denies fever chills has been tolerating clear liquid diet, no diarrhea. Review of Systems General no headache no dizziness no fever chills. CVS no chest pain, no palpitation. Respiratory no cough, no sob Review of Systems: Yes all other systems are reviewed and are negative Physical Exam Vital Signs: Vital Signs: Last Vital Signs Temp 99.0 F 07/30/22 10:59 Pulse 83 07/30/22 10:59 Resp 16 07/30/22 10:59 BP 143/66 H 07/30/22 10:59 Pulse Ox 93 07/30/22 10:59 O2 Del Method 07/30/22 10:59 O2 Flow Rate 2 07/30/22 07:29 BMI result Body Mass Index 28.9 Const: Other: General awake alert x3 in no acute distress.? Neck no JVD. CVS? regular rate rhythm, Respiratory lungs clear to auscultation, no respiratory distress, no wheeze, no rhonchi. Gastrointestinal abdomen soft,no tenderness right upper quadrant, no guarding, no rigidity no rebound Extremities no? edema. Neuro nonfocal Skin no rash Psych appropriate affect Objective Data Active Medications Acetaminophen (Acetaminophen 325 Mg Tablet) 650 mg PO Q6H PRN PRN Reason: Pain, Mild (Pain Scale 1-3) Last Admin: 07/30/22 11:34 Dose: 650 mg Documented By: BILL Atenolol (Atenolol 50 Mg Tablet) 50 mg PO DAILY PENDING SALE TO [facility]; Protocol Last Admin: 07/30/22 08:20 Dose: 50 mg Documented By: BILL Heparin Sodium (Porcine) (Heparin Sodium,Porcine 5,000 Unit/Ml Vial) 5,000 unit SUBCUT Q12H PENDING SALE TO [facility] Last Admin: 07/30/22 04:52 Dose: 5,000 unit Documented By: BALDEV Ceftriaxone Sodium 1 gm/ (Sodium Chloride) 50 mls @ 100 mls/hr IV Q24H PENDING SALE TO [facility] Last Infusion: 07/30/22 06:19 Dose: 0 mls/hr Documented By: BALDEV Metronidazole (Flagyl) 500 mg in 100 mls @ 100 mls/hr IV Q8H PENDING SALE TO [facility] Last Infusion: 07/30/22 07:23 Dose: 0 mls/hr Documented By: BILL Potassium Cl/Dextrose/Lact Ringer's (Kcl 20 Meq In 5 % Dex/Lact Rin) 20 meq in 1,000 mls @ 80 mls/hr IVCONT .[id number] PENDING SALE TO [facility] Last Infusion: 07/30/22 08:22 Dose: 80 mls/hr Documented By: BILL Lisinopril (Lisinopril 20 Mg Tablet) 20 mg PO DAILY PENDING SALE TO [facility]; Protocol Last Admin: 07/30/22 08:20 Dose: 20 mg Documented By: BILL Metoclopramide HCl (Metoclopramide Hcl 10 Mg/2 Ml Vial) 5 mg IVPUSH Q6H PRN PRN Reason: Nausea Last Admin: 07/28/22 03:39 Dose: 5 mg Documented By: JEAN-CLAUDE Morphine Sulfate (Morphine Sulfate 4 Mg/Ml Cartridge) 4 mg IVPUSH Q4H PRN; Protocol PRN Reason: Pain, Severe (Pain Scale 7-10) Last Admin: 07/29/22 23:05 Dose: 4 mg Documented By: BALDEV Omeprazole (Omeprazole 20 Mg Capsule.Dr) 20 mg PO SuTuTh@0630 PENDING SALE TO [facility] Last Admin: 07/30/22 04:53 Dose: 20 mg Documented By: BALDEV Oxycodone HCl (Oxycodone Hcl Immed Release 5 Mg Tablet) 5 mg PO Q6H PRN PRN Reason: Pain, Severe (Pain Scale 7-10) Last Admin: 07/29/22 14:27 Dose: 5 mg Documented By: BILL Pharmacy Consult (Consult Rx Perform Med Rec) 1 each MISCELLANE ONCE PRN PRN Reason: Consult order Sodium Chloride (0.9 % Sodium Chloride Flush 3 Ml Syringe) 3 ml IVFLUSH QSHIFT PENDING SALE TO [facility] Last Admin: 07/30/22 08:20 Dose: 3 ml Documented By: BILL Sodium Chloride (Sodium Chloride 0.65 % Nasal 44 Ml Sprbtl) 1 spray NOSTRIL-B Q1H PRN PRN Reason: Congestion Labs CBC & Chem 7: 07/30/22 05:35 07/30/22 05:35 Labs: Laboratory Results - last 24 hr 07/30/22 07/30/22 05:35 05:35 MCV 91.1 MCH 31.0 MCHC 34.0 RDW 12.6 Plt Count 189 MPV 9.3 L Immature Gran % (Auto) 1.0 H Neut % (Auto) 68.0 Lymph % (Auto) 9.8 L [place] % (Auto) 20.0 H Eos % (Auto) 0.8 Baso % (Auto) 0.4 Lymph # (Auto) 1.2 [place] # (Auto) 2.4 H Eos # (Auto) 0.1 Baso # (Auto) 0.1 Abs Immat Gran (auto) 0.12 H Absolute Neuts (auto) 8.0 Absolute Nucleated RBC 0.000 Nucleated RBC % (auto) 0.0 Smear Tech's Comments VERIFIED Anion Gap 14 Estim Creat Clear Calc 70.6 Estimated GFR > 60 Random Glucose 89 Calcium 8.2 L Assessment and Plan (1) Diverticulitis: Status: Acute (2) Lactic acidosis: Status: Acute Plan 72-year-old female with past medical history of hypertension, hyperlipidemia presents to the hospital with abdominal pain found to have acute diverticulitis #? sepsis related to acute abdominal pain due to diverticulitis ? ? Abdominal pain improved no nausea no vomiting Abdominal ultrasound unremarkable, CT abdomen?uggestive of diverticulitis, lipase normal LFTs unremarkable ? since pain has improved no nausea no vomiting WBC have still significantly improved will place patient on low-fiber, bland diet, DC IV fluids continue IV Flagyl and ceftriaxone day 5, case discussed with general surgery they agree with current treatment plan # hypokalemia potassium 3.0 will replete and repeat labs #? lactic acidosis resolved status post IV fluids #? hypertension? elevated blood pressure continue atenolol 50 mg and placed back on lisinopril 40 mg daily home dose ?DVT prophylaxis: Heparin subQ Patient need continued inpatient hospitalization for acute diverticulitis requiring IV antibiotics Quality Stroke Does the patient have a stroke diagnosis?: No VTE Prior VTE?: No VTE Risk Level:: Medical - moderate - high VTE Device Contraindication: Treatment Not Indicated VTE Drug Contraindication: N/A - Med Ordered
[2022-07-30 15:14] VITALS: BP 120/64; PULSE 77; RESP 18; TEMP 36.5; O2SAT 97
[2022-07-30 19:31] VITALS: BP 128/64; PULSE 63; RESP 18; TEMP 37; O2SAT 96
[2022-07-30] MEDS: oxyCODONE HCl Immed Release 5 MG TABLET PO (22:13)
[2022-07-30 23:52] VITALS: BP 156/77; PULSE 68; RESP 16; TEMP 37.1; O2SAT 96
[2022-07-31 04:00] VITALS: BP 145/72; PULSE 90; RESP 16; TEMP 36.6; O2SAT 93
[2022-07-31] MEDS: oxyCODONE HCl Immed Release 5 MG TABLET PO (05:36)
[2022-07-31] MEDS: cefTRIAXone sodium 1 GM in 0.9 % Sodium Chloride 50 ML IV (05:39)
[2022-07-31] MEDS: metroNIDAZOLE/NS 500 MG/100 ML PIGGYBACK 100 MG IV (06:12)
[2022-07-31] MEDS: Heparin Sodium,Porcine 5,000 UNIT/ML VIAL 5000 UNIT SUBCUT (06:16)
[2022-07-31 06:42] LABS: Hematocrit 33.4 % (37.0-47.0); Hemoglobin 11.4 g/dl (12.0-16.0); Mean Corpuscular HGB Conc 34.1 g/dl (31.0-35.0); Mean Corpuscular Hemoglobin 30.6 pg (27.0-33.0); Mean Corpuscular Volume 89.5 fL (80.0-98.0); Mean Platelet Volume 9.5 fL (9.4-12.3); Platelet Count 207 X10*3/uL (160-400); Red Blood Count 3.73 X10*6/uL (4.20-5.50); Red Cell Distribution Width 12.7 % (11.0-16.0); White Blood Count 11.6 X10*3/uL (4.8-10.8)
[2022-07-31 07:07] LABS: Anion Gap 13 (12-20); Blood Urea Nitrogen 19 mg/dL (9-16); Calcium 8.3 mg/dL (8.4-10.2); Carbon Dioxide 28 mmol/L (22-29); Chloride 102 mmol/L (96-108); Creatinine Clr Calc Pharmacy 75.9; Estimated Glomerular Filt Rate > 60; Glucose Random 86 mg/dL (60-115); Potassium 3.1 mmol/L (3.3-5.1); Sodium 140 mmol/L (135-145)
[2022-07-31 08:00] VITALS: BP 141/72; PULSE 70; RESP 18; TEMP 36.9; O2SAT 95
[2022-07-31] MEDS: atenoloL 50 MG TABLET PO (08:52)
[2022-07-31] MEDS: lisinopriL 20 MG TABLET PO (08:52)
[2022-07-31] MEDS: 0.9 % Sodium Chloride Flush 3 ML SYRINGE IVFLUSH (08:53)
--- NOTE | 2022-07-31 10:24 | MHC.CM.PN ---
PT WILL DC HOME TODAY WITH NO SERVICES PT TO ARRANGE TRANSPORT
[2022-07-31] MEDS: Potassium Chloride ER 20 MEQ TAB.ER.PRT 40 MEQ PO (10:31)
[2022-07-31 11:15] VITALS: BP 141/68; PULSE 75; RESP 16; TEMP 36.9; O2SAT 94
--- NOTE | 2022-07-31 12:21 | PM.DS ---
DS: Providers Provider Date of Service: 07/31/22 Date of admission: 07/26/22 06:12 Primary care physician: Evelio Marsh MD Consults: 07/27/22 08:11 Consult to General Surgery Routine Consulting Provider: Emir Banks Reason for consultation: diverticulitis Has provider been notified: No DS: Diagnosis Discharge Diagnosis (1) Diverticulitis: Status: Acute (2) Lactic acidosis: Status: Acute DS: Summary Hospital Course Hospital Course: Date of Service: 07/26/22 Chief Complaint: Abd pain ?this is a 72-year-old female with past medical history of hypertension, hyperlipidemia? presents to the hospital with complaints of abdominal pain.? Patient reports the abdominal pain to be epigastric, radiating to the right upper quadrant, started the day prior to presentation,? has nausea, vomiting, no diarrhea.? Has some constipation, denies any fever, has chills,no? chest pain, no shortness of breath, no urinary symptoms and no lower extremity edema.? On arrival to the ED patient hemodynamically stable Labs are significant for WBC count of 12.2, sodium of 134, lactic acid of 2.3, urine shows leukocyte Estrace with some WBC Abdominal CT showed diffuse colitis ?patient started on IV antibiotics? and will be admitted for further management. hospital course 72-year-old female with past medical history of hypertension, hyperlipidemia presents to the hospital with abdominal pain found to have sepsis due to acute diverticulitis #? sepsis related to acute diverticulitis, patient admitted to medical floor treated with IV ceftriaxone and IV Flagyl and fluids, she was kept NPO gradually diet was advanced currently patient is tolerating regular diet abdominal pain has improved WBC have trended down therefore she is being discharged home on low-fiber diet and 3 more days of antibiotics she is recommended to take Tylenol for pain and return to check with worsening symptoms, patient was followed closely by General surgery. ?? #? hypokalemia potassium 3.1 will replete and recommend outpatient follow BMP #? lactic acidosis resolved status post IV fluids #? hypertension?? continue home medications atenolol 50 mg and lisinopril 40 mg. Time Spent with Patient Time attestation: Total time spent providing and/or coordinating discharge services: Discharge coordination time: Greater than 30 minutes Quality: Safe Use of Opioids Does Pt have an Active Cancer Diagnosis on the Problem List?: No Quality: Stroke Does the patient have a stroke diagnosis?: No Physical Exam Vital Signs: Vital Signs: Last Vital Signs Temp 98.5 F 07/31/22 11:15 Pulse 75 07/31/22 11:15 Resp 16 07/31/22 11:15 BP 141/68 H 07/31/22 11:15 Pulse Ox 94 07/31/22 11:15 O2 Del Method 07/31/22 11:15 O2 Flow Rate 2 07/31/22 08:00 BMI result Body Mass Index 28.9 Const: Other: General awake alert x3 in no acute distress.? Neck no JVD. CVS? regular rate rhythm, Respiratory lungs clear to auscultation, no respiratory distress, no wheeze, no rhonchi. Gastrointestinal abdomen soft,no tenderness right upper quadrant, no guarding, no rigidity no rebound Extremities no? edema. Neuro nonfocal Skin no rash Psych appropriate affect DS: Data Data Completed and Pending Labs on day of discharge: Laboratory Results - last 24 hr 07/31/22 07/31/22 06:07 06:07 WBC 11.6 H RBC 3.73 L Hgb 11.4 L Hct 33.4 L MCV 89.5 MCH 30.6 MCHC 34.1 RDW 12.7 Plt Count 207 MPV 9.5 Absolute Nucleated RBC 0.000 Nucleated RBC % (auto) 0.0 Sodium 140 Potassium 3.1 L Chloride 102 Carbon Dioxide 28 Anion Gap 13 BUN 19 H Creatinine 0.66 Estim Creat Clear Calc 75.9 Estimated GFR > 60 Random Glucose 86 Calcium 8.3 L Discharge Plan Discharge Anticipated Discharge Date/Time: 07/31/22 09:55 Patient Disposition: Home, Self-Care Discharge Diagnosis: sepsis due to acute diverticulitis hypokalemia Referrals: Evelio Marsh MD [Primary Care Provider] - 1 Week Discharge Medications: New cefuroxime axetil 500 mg tablet 500 mg PO Q12H Qty: 6 0RF metronidazole 500 mg tablet 500 mg PO BID Qty: 6 0RF Continued magnesium oxide 400 mg (241.3 mg magnesium) tablet 1 tab PO BEDTIME omeprazole 20 mg capsule,delayed release(DR/EC) 1 cap PO SUTUTH lisinopril 40 mg tablet 1 tab PO DAILY atenolol 50 mg tablet 1 tab PO DAILY fluticasone propionate [Flonase] 50 mcg/actuation [place],Suspension 1 spray INTRANASAL DAILY Rx Instructions: administer into each nostril Discharge Orders: Discharge Order (Routine); Ordered 07/31/22 Ordered By: Lance Chadwick Diet: low fiber diet Activity on Discharge: As tolerated Stand Alone Forms: Patient Portal Discharge page Other Ambulatory Orders: Basic Metabolic Panel (Routine) Timeframe: 2 Days Facility: [facility] - Location: Laboratory Ordered By: Lance Chadwick Care Plan Goals: acute diverticulitis improved, take by mouth antibiotics as prescribed, continue low residue diet for next few days return to check with recurrent abdominal pain nausea vomiting or fevers low potassium take high potassium diet x few days only Health Concerns: take all home medications as before Plan of Treatment: outpatient follow-up with primary care physician call for Assessment: as above
== END 2022-07-31 13:23 | disposition home or self-care (01) | DRG 872 ==
LOC: HO.ED 07-26 00:33 → HO.EDOVER 07-26 07:08 → HO.S3 07-27 14:42
PROVIDERS: Surgery; Admitting Provider Internal Medicine; Emergency Provider Internal Medicine; PCP Internal Medicine; Visit Provider Hospitalist
DX: A41.9 Sepsis, unspecified organism (principal); E87.20 Acidosis, unspecified; K57.32 Diverticulitis of large intestine without perforation or abscess without bleeding; E78.5 Hyperlipidemia, unspecified; I10 Essential (primary) hypertension; E87.6 Hypokalemia; Z20.822 Contact with and (suspected) exposure to COVID-19; Z87.891 Personal history of nicotine dependence; Z79.51 Long term (current) use of inhaled steroids; Z79.899 Other long term (current) drug therapy
CPT/HCPCS: 0241U; 36415; 74177; 76705; 80048; 80076; 81001; 81003; 83605; 83690; 84484; 85025; 85027; 87040; 93005; 99285; J0696; J1170; J2270; J2405; J2765; Q9967

== ENCOUNTER 2023-01-11 19:43 | Inpatient (IN) | payer MEDICARE, SELFPAY ==
--- NOTE | ~2023-01-11 | US_ITS ---
EXAMINATION: US ABDOMEN LIMITED CLINICAL INFORMATION: Abnormal CT for evaluation of gallbladder and common bile duct. COMPARISON: CT scan earlier today: Mild biliary ductal dilatation. Distal filling defect in the CBD is suspicious for choledocholithiasis. This may be further assessed with ERCP. TECHNIQUE: Real-time imaging of the gallbladder and common bile duct. FINDINGS: GALLBLADDER: Echogenic bile is present in the gallbladder. The gallbladder is physiologically distended without evidence of stones, polyps, wall thickening or pericholecystic fluid. COMMON BILE DUCT: Normal in caliber measuring 0.9 cm in diameter. This distal common bile duct where there was a mass seen intraluminally on scan cannot be seen on this study as this portion was obscured by bowel gas FREE FLUID: None. US/US abdomen limited IMPRESSION: The common bile duct is dilated at 0.9 cm. The distal common bile duct, where soft tissue density filling defect is seen on the CT scan, is obscured by bowel gas. As stated at the time of the CT scan, ERCP would be useful for further evaluation.
--- NOTE | ~2023-01-11 | CT_ITS ---
EXAMINATION: CT ABDOMEN AND PELVIS WITH CONTRAST CLINICAL INFORMATION: Left lower quadrant pain COMPARISON: 07/26/2022 TECHNIQUE: Multidetector volumetric images were obtained from the superior aspect of the liver through the pubic symphysis following administration 85 mL of Omnipaque 350 intravenous contrast. Sagittal and coronal reformatted images were obtained on the technologist's workstation. Oral contrast: No This CT examination was performed using dose optimization techniques as appropriate, variously including the following: *Automated exposure control *Adjustment of mA and/or kV according to patient size (this includes techniques or standardized protocols for targeted exams where dose is matched to indication/reason for exam; i.e. extremities or head) *Use of iterative reconstruction technique DLP: 587 mGy-cm FINDINGS: LUNG BASES: The visualized lung bases are unremarkable. Coronary artery calcifications are present. LIVER, GALLBLADDER, AND BILIARY TREE: The liver is normal in size, shape, and attenuation. In comparison to prior, the right portal vein branches are not as well seen. Mild biliary ductal dilatation is present. Prominent common bile duct measures 0.9 cm in diameter. Distal filling defect in the CBD is suspicious for choledocholithiasis, as seen on coronal image 40. Gallbladder appears partially contracted. Subtle adjacent stranding is noted. PANCREAS: Unremarkable. SPLEEN: Unremarkable. ADRENAL GLANDS: Unremarkable. KIDNEYS AND URETERS: Bilateral nephrograms are symmetric. No hydronephrosis or obstructing calculus identified. BLADDER: Unremarkable. GASTROINTESTINAL TRACT: Moderate-sized hiatal hernia. No evidence of bowel obstruction. Sigmoid colon diverticulosis is noted. There is mild mesenteric stranding in the left pelvis, though this appears to be more closely associated with a segment of thick-walled small bowel, suggesting an enteritis. The appendix is unremarkable. Trace pelvic free fluid. No free air is seen. ABDOMINAL WALL: No significant hernia is appreciated. LYMPH NODES: Normal. VASCULAR: Scattered atherosclerotic calcifications. PELVIC VISCERA: Patient is status post hysterectomy. OSSEOUS STRUCTURES: Degenerative changes are noted in the spine. CT/CT abdomen pelvis w IV con IMPRESSION: 1. Mild mesenteric stranding in the left pelvis, which appears to be more closely associated with a segment of thick-walled small bowel rather than colonic diverticula, suggesting possible enteritis. 2. Mild biliary ductal dilatation. Distal filling defect in the CBD is suspicious for choledocholithiasis. This may be further assessed with ERCP. 3. Subtle stranding adjacent to the gallbladder, for which cholecystitis cannot be excluded. This may be further assessed with ultrasound as clinically warranted. 4. Right portal vein branches are not as well seen currently compared to prior. Patency may be further assessed with Doppler ultrasound. 5. Moderate-sized hiatal hernia.
--- NOTE | ~2023-01-11 | FL_ITS ---
EXAMINATION: XR FLUOROSCOPY WITH IMAGES CLINICAL INFORMATION: Common bile duct stone COMPARISON: CT of the abdomen and limited abdominal ultrasound 01/11/2023 TECHNIQUE: Fluoroscopy Supervised By: Dr. Stahl. Fluoroscopy Time: 301 seconds. Cumulative Dose: 104 mGy. Images: 9. FINDINGS: Initial images demonstrate mild intra and extrahepatic biliary duct dilatation. There are filling defects in the distal common bile duct suggestive of stones. Later images demonstrate a wire in the extrahepatic bile ducts and right intrahepatic bile ducts. Final images demonstrate interval decrease in biliary duct dilatation. No stone is seen. There is contrast in the duodenum. FL/FL guidance in OR IMPRESSION: Fluoroscopy guidance for ERCP.
[2023-01-11 19:49] VITALS: BP 135/81; PULSE 118; RESP 19; TEMP 36.9; O2SAT 95; BMI 29.5
--- NOTE | 2023-01-11 19:57 | ED.ABDPAIN ---
HPI - Abdominal Pain General Chief Complaint: Abdominal Pain <KIA Barba - Last Filed: 01/11/23 19:58> Stated Complaint: abd pain <KIA Barba - Last Filed: 01/11/23 19:58> Time Seen by Provider: 01/11/23 20:13 <KIA Barba - Last Filed: 01/11/23 19:58> Source: patient <Chato Stahl MD - Last Filed: 01/12/23 00:47> Mode of arrival: ambulatory <Chato Stahl MD - Last Filed: 01/12/23 00:47> Limitations: no limitations <Chato Stahl MD - Last Filed: 01/12/23 00:47> History of Present Illness HPI narrative: Patient history of diverticulitis and 07/18 comes here for pain started in epigastric area for last 4 days got worse today unable to eat much because of pain heavy with increased nausea and vomiting since yesterday no fever no chills no abdominal distension but patient feels bloated in the ER noticed to have temperature of 100.5 degrees. Never had similar pain in the past no history of gallstones or pancreatitis pain is localized in epigastric area without any radiation no urinary symptoms <Chato Stahl MD - Last Filed: 01/12/23 00:47> Related Data Home Medications: Home Medications Medication Instructions Recorded Confirmed atenolol 50 mg tablet 1 tab PO DAILY 07/26/22 07/26/22 fluticasone propionate 50 1 spray intranasal DAILY 07/26/22 07/26/22 mcg/actuation nasal spray,suspension lisinopril 40 mg tablet 1 tab PO DAILY 07/26/22 07/26/22 magnesium oxide 400 mg (241.3 mg 1 tab PO BEDTIME 07/26/22 07/26/22 magnesium) tablet omeprazole 20 mg capsule,delayed 1 cap PO SUTUTH 07/26/22 07/26/22 release Previous Rx's Medication Instructions Recorded cefuroxime axetil 500 mg tablet 500 mg PO Q12H #6 tabs 07/31/22 metronidazole 500 mg tablet 500 mg PO BID #6 tabs 07/31/22 <KIA Barba - Last Filed: 01/11/23 19:58> Allergies/Adverse Reactions: Allergies Allergy/AdvReac Type Severity Reaction Status Date / Time No Known Allergies Allergy Verified 01/11/23 19:49 <KIA Barba - Last Filed: 01/11/23 19:58> Review of Systems Review of Systems Yes all other systems are reviewed and are negative <Chato Stahl MD - Last Filed: 01/12/23 00:47> [facility] Past Medical History Medical History: Medical History Hyperlipidemia Hypertension <KIA Barba - Last Filed: 01/11/23 19:58> Surgical History: Surgical History H/O: hysterectomy History of rotator cuff surgery <KIA Barba - Last Filed: 01/11/23 19:58> Family History Family History: Family History Other No family history of coronary artery disease <KIA Barba - Last Filed: 01/11/23 19:58> Social History Social History: Social History Household Members: Spouse Housing: House Do you presently have visiting nurse or other home services: No Alcohol intake: never Patient Tobacco Use Status: Former Tobacco user Quit Date: 50 years ago Use of substances other than those prescribed or required for medical reasons: No Advance Directives: No Advance Directives Information Provided: No service: No Current occupational status: retired <KIA Barba - Last Filed: 01/11/23 19:58> Physical Exam ED Vital Signs: Vital Signs - 24 hr 01/11/23 19:49 01/11/23 20:23 01/11/23 22:13 Temperature 98.4 F 100.5 F H Pulse Rate 118 H 90 103 H Respiratory Rate 19 18 16 Blood Pressure 135/81 144/70 H 115/59 L Pulse Oximetry 95 95 96 Oxygen Delivery Method Room Air Room Air Room Air BMI result Body Mass Index 29.5 <KIA Barba - Last Filed: 01/11/23 19:58> Vital Signs - 24 hr 01/11/23 19:49 01/11/23 20:23 01/11/23 22:13 Temperature 98.4 F 100.5 F H Pulse Rate 118 H 90 103 H Respiratory Rate 19 18 16 Blood Pressure 135/81 144/70 H 115/59 L Pulse Oximetry 95 95 96 Oxygen Delivery Method Room Air Room Air Room Air BMI result Body Mass Index 29.5 <Chato Stahl MD - Last Filed: 01/12/23 00:47> Appearance: Alert. Oriented X3. In moderate distress Eyes: Icterus+ ENT: Pharynx normal. Oral Mucosa moist Neck: Normal inspection. Neck supple. CVS: Normal heart rate and rhythm. Pulses normal. Respiratory: No respiratory distress. Equal air entry bilateral, no wheezing/rales/rhonchi Abdomen: Soft , tenderness in epigastric area with guarding , Bowel sounds are present, no mass palpable, no CVA tenderness Skin: Skin warm and dry. Normal skin color. Normal skin turgor. Extremities: No lower extremity edema. No calf tenderness Neuro: Oriented X 3. No motor deficit. <Chato Stahl MD - Last Filed: 01/12/23 00:47> Course Course Course Narrative: This is an RME: Additional HPI, ROS, PE not included below will be deferred to primary provider. 72-year-old female presents with lower left abdominal pain that started today, with associated nausea, vomiting, fatigue malaise, patient has a history of diverticulitis and has required hospitalization in the past for this. Patient is scheduled to see GI in February to discuss next colonoscopy however has not had a recent colonoscopy. Physical exam patient appears uncomfortable. Vital signs are stable however tachycardic likely secondary to pain Plan- labs, urine, imaging <KIA Barba - Last Filed: 01/11/23 19:58> Medical Decision Making Medical Decision Making MDM Narrative: Patient with upper abdominal workup showed elevated LFTs and lipase CT scan ultrasound showed dilated CBD concern of possible choledocholithiasis no gallstones seen or pericholecystic fluid but CBD was dilated with filling defect patient will be admitted for further evaluation including requirement of ERCP and GI evaluation <Chato Stahl MD - Last Filed: 01/12/23 00:47> Differential Diagnosis Pancreatitis/cholecystitis/gastritis/diverticulitis <Chato Stahl MD - Last Filed: 01/12/23 00:47> Consult Healthcare Provider Management of the patient was discussed with: Hospitalist <Chato Stahl MD - Last Filed: 01/12/23 00:47> Lab Data MDM Lab Attestation statement: I reviewed the patient's lab results. <Chato Stahl MD - Last Filed: 01/12/23 00:47> Result Diagrams: 01/11/23 19:58 01/11/23 19:58 <KIA Barba - Last Filed: 01/11/23 19:58> Labs: Lab Results 01/11/23 01/11/23 01/11/23 Range/Units 19:58 19:58 20:54 WBC 10.2 (4.8-10.8) X10*3/uL RBC 4.58 D (4.20-5.50) X10*6/uL Hgb 13.6 (12.0-16.0) g/dl Hct 39.8 (37.0-47.0) % MCV 86.9 (80.0-98.0) fL MCH 29.7 (27.0-33.0) pg MCHC 34.2 (31.0-35.0) g/dl RDW 13.2 (11.0-16.0) % Plt Count 300 D (160-400) X10*3/uL MPV 9.0 L (9.4-12.3) fL Immature Gran % (Auto) 0.3 (0.0-0.4) % Neut % (Auto) 84.5 H (45-73) % Lymph % (Auto) 6.4 L (20-40) % [place] % (Auto) 8.6 (2-11) % Eos % (Auto) 0.1 (0-4) % Baso % (Auto) 0.1 (0-2) % Lymph # (Auto) 0.7 L (1.2-4.9) X10*3/uL [place] # (Auto) 0.9 (0.1-1.2) X10*3/uL Eos # (Auto) 0.0 (0.0-0.4) X10*3/uL Baso # (Auto) 0.0 (0.0-0.2) X10*3/uL Abs Immat Gran (auto) 0.03 (0.00-0.03) X10*3/uL Absolute Neuts (auto) 8.6 H (2.0-8.3) x10*3/uL Absolute Nucleated RBC 0.000 (0.0-0.012) X10*3/uL Nucleated RBC % (auto) 0.0 (0.0-0.2) /100WBC Sodium 135 (135-145) mmol/L Potassium 4.2 D (3.3-5.1) mmol/L Chloride 101 (96-108) mmol/L Carbon Dioxide 22 (22-29) mmol/L Anion Gap 16 (12-20) BUN 12 (9-16) mg/dL Creatinine 1.02 (0.5-1.4) mg/dL Estim Creat Clear Calc 46.3 Estimated GFR 53 Random Glucose 124 H (60-115) mg/dL Lactic Acid (0.5-2.0) mmol/L Calcium 10.3 H D (8.4-10.2) mg/dL Magnesium 1.1 L* (1.6-2.6) mg/dL Total Bilirubin 5.0 H (0.0-1.0) mg/dL AST 263 H (5-31) U/L ALT 282 H (0-31) U/L Alkaline Phosphatase 580 H (39-117) U/L Total Protein 6.5 (6.5-8.0) g/dL Albumin 4.2 (3.5-5.0) g/dL Lipase 234 H (8-78) U/L Urine Color Dark Yellow Urine Appearance Clear Urine pH 6.0 (5.0-9.0) Ur Specific [place] 1.015 (1.005-1.025) Urine Protein Negative (Neg-Trace) mg/dL Urine Glucose (UA) Negative (Negative) mg/dL Urine Ketones Trace (Negative) mg/dL Urine Blood Negative (Negative) Urine Nitrite Negative (Negative) Ur Leukocyte Esterase Moderate (2+) H (Negative) Urine RBC 0-2 (0-2) /HPF Urine WBC 0-5 (0-5) /HPF Ur Squamous Epith Cells 0-2 (0-2) /HPF Urine Bacteria None Seen (None Seen) Hyaline Casts 0-2 (0-2) /LPF 01/11/23 Range/Units 21:55 WBC (4.8-10.8) X10*3/uL RBC (4.20-5.50) X10*6/uL Hgb (12.0-16.0) g/dl Hct (37.0-47.0) % MCV (80.0-98.0) fL MCH (27.0-33.0) pg MCHC (31.0-35.0) g/dl RDW (11.0-16.0) % Plt Count (160-400) X10*3/uL MPV (9.4-12.3) fL Immature Gran % (Auto) (0.0-0.4) % Neut % (Auto) (45-73) % Lymph % (Auto) (20-40) % [place] % (Auto) (2-11) % Eos % (Auto) (0-4) % Baso % (Auto) (0-2) % Lymph # (Auto) (1.2-4.9) X10*3/uL [place] # (Auto) (0.1-1.2) X10*3/uL Eos # (Auto) (0.0-0.4) X10*3/uL Baso # (Auto) (0.0-0.2) X10*3/uL Abs Immat Gran (auto) (0.00-0.03) X10*3/uL Absolute Neuts (auto) (2.0-8.3) x10*3/uL Absolute Nucleated RBC (0.0-0.012) X10*3/uL Nucleated RBC % (auto) (0.0-0.2) /100WBC Sodium (135-145) mmol/L Potassium (3.3-5.1) mmol/L Chloride (96-108) mmol/L Carbon Dioxide (22-29) mmol/L Anion Gap (12-20) BUN (9-16) mg/dL Creatinine (0.5-1.4) mg/dL Estim Creat Clear Calc Estimated GFR Random Glucose (60-115) mg/dL Lactic Acid 0.7 (0.5-2.0) mmol/L Calcium (8.4-10.2) mg/dL Magnesium (1.6-2.6) mg/dL Total Bilirubin (0.0-1.0) mg/dL AST (5-31) U/L ALT (0-31) U/L Alkaline Phosphatase (39-117) U/L Total Protein (6.5-8.0) g/dL Albumin (3.5-5.0) g/dL Lipase (8-78) U/L Urine Color Urine Appearance Urine pH (5.0-9.0) Ur Specific [place] (1.005-1.025) Urine Protein (Neg-Trace) mg/dL Urine Glucose (UA) (Negative) mg/dL Urine Ketones (Negative) mg/dL Urine Blood (Negative) Urine Nitrite (Negative) Ur Leukocyte Esterase (Negative) Urine RBC (0-2) /HPF Urine WBC (0-5) /HPF Ur Squamous Epith Cells (0-2) /HPF Urine Bacteria (None Seen) Hyaline Casts (0-2) /LPF <KIA Barba - Last Filed: 01/11/23 19:58> Lab Results 01/11/23 01/11/23 01/11/23 Range/Units 19:58 19:58 20:54 WBC 10.2 (4.8-10.8) X10*3/uL RBC 4.58 D (4.20-5.50) X10*6/uL Hgb 13.6 (12.0-16.0) g/dl Hct 39.8 (37.0-47.0) % MCV 86.9 (80.0-98.0) fL MCH 29.7 (27.0-33.0) pg MCHC 34.2 (31.0-35.0) g/dl RDW 13.2 (11.0-16.0) % Plt Count 300 D (160-400) X10*3/uL MPV 9.0 L (9.4-12.3) fL Immature Gran % (Auto) 0.3 (0.0-0.4) % Neut % (Auto) 84.5 H (45-73) % Lymph % (Auto) 6.4 L (20-40) % [place] % (Auto) 8.6 (2-11) % Eos % (Auto) 0.1 (0-4) % Baso % (Auto) 0.1 (0-2) % Lymph # (Auto) 0.7 L (1.2-4.9) X10*3/uL [place] # (Auto) 0.9 (0.1-1.2) X10*3/uL Eos # (Auto) 0.0 (0.0-0.4) X10*3/uL Baso # (Auto) 0.0 (0.0-0.2) X10*3/uL Abs Immat Gran (auto) 0.03 (0.00-0.03) X10*3/uL Absolute Neuts (auto) 8.6 H (2.0-8.3) x10*3/uL Absolute Nucleated RBC 0.000 (0.0-0.012) X10*3/uL Nucleated RBC % (auto) 0.0 (0.0-0.2) /100WBC Sodium 135 (135-145) mmol/L Potassium 4.2 D (3.3-5.1) mmol/L Chloride 101 (96-108) mmol/L Carbon Dioxide 22 (22-29) mmol/L Anion Gap 16 (12-20) BUN 12 (9-16) mg/dL Creatinine 1.02 (0.5-1.4) mg/dL Estim Creat Clear Calc 46.3 Estimated GFR 53 Random Glucose 124 H (60-115) mg/dL Lactic Acid (0.5-2.0) mmol/L Calcium 10.3 H D (8.4-10.2) mg/dL Magnesium 1.1 L* (1.6-2.6) mg/dL Total Bilirubin 5.0 H (0.0-1.0) mg/dL AST 263 H (5-31) U/L ALT 282 H (0-31) U/L Alkaline Phosphatase 580 H (39-117) U/L Total Protein 6.5 (6.5-8.0) g/dL Albumin 4.2 (3.5-5.0) g/dL Lipase 234 H (8-78) U/L Urine Color Dark Yellow Urine Appearance Clear Urine pH 6.0 (5.0-9.0) Ur Specific [place] 1.015 (1.005-1.025) Urine Protein Negative (Neg-Trace) mg/dL Urine Glucose (UA) Negative (Negative) mg/dL Urine Ketones Trace (Negative) mg/dL Urine Blood Negative (Negative) Urine Nitrite Negative (Negative) Ur Leukocyte Esterase Moderate (2+) H (Negative) Urine RBC 0-2 (0-2) /HPF Urine WBC 0-5 (0-5) /HPF Ur Squamous Epith Cells 0-2 (0-2) /HPF Urine Bacteria None Seen (None Seen) Hyaline Casts 0-2 (0-2) /LPF 01/11/23 Range/Units 21:55 WBC (4.8-10.8) X10*3/uL RBC (4.20-5.50) X10*6/uL Hgb (12.0-16.0) g/dl Hct (37.0-47.0) % MCV (80.0-98.0) fL MCH (27.0-33.0) pg MCHC (31.0-35.0) g/dl RDW (11.0-16.0) % Plt Count (160-400) X10*3/uL MPV (9.4-12.3) fL Immature Gran % (Auto) (0.0-0.4) % Neut % (Auto) (45-73) % Lymph % (Auto) (20-40) % [place] % (Auto) (2-11) % Eos % (Auto) (0-4) % Baso % (Auto) (0-2) % Lymph # (Auto) (1.2-4.9) X10*3/uL [place] # (Auto) (0.1-1.2) X10*3/uL Eos # (Auto) (0.0-0.4) X10*3/uL Baso # (Auto) (0.0-0.2) X10*3/uL Abs Immat Gran (auto) (0.00-0.03) X10*3/uL Absolute Neuts (auto) (2.0-8.3) x10*3/uL Absolute Nucleated RBC (0.0-0.012) X10*3/uL Nucleated RBC % (auto) (0.0-0.2) /100WBC Sodium (135-145) mmol/L Potassium (3.3-5.1) mmol/L Chloride (96-108) mmol/L Carbon Dioxide (22-29) mmol/L Anion Gap (12-20) BUN (9-16) mg/dL Creatinine (0.5-1.4) mg/dL Estim Creat Clear Calc Estimated GFR Random Glucose (60-115) mg/dL Lactic Acid 0.7 (0.5-2.0) mmol/L Calcium (8.4-10.2) mg/dL Magnesium (1.6-2.6) mg/dL Total Bilirubin (0.0-1.0) mg/dL AST (5-31) U/L ALT (0-31) U/L Alkaline Phosphatase (39-117) U/L Total Protein (6.5-8.0) g/dL Albumin (3.5-5.0) g/dL Lipase (8-78) U/L Urine Color Urine Appearance Urine pH (5.0-9.0) Ur Specific [place] (1.005-1.025) Urine Protein (Neg-Trace) mg/dL Urine Glucose (UA) (Negative) mg/dL Urine Ketones (Negative) mg/dL Urine Blood (Negative) Urine Nitrite (Negative) Ur Leukocyte Esterase (Negative) Urine RBC (0-2) /HPF Urine WBC (0-5) /HPF Ur Squamous Epith Cells (0-2) /HPF Urine Bacteria (None Seen) Hyaline Casts (0-2) /LPF <Chato Stahl MD - Last Filed: 01/12/23 00:47> Radiology Impression Discussion of test interpretation with radiology: I have reviewed the radiologist's reading. <Chato Stahl MD - Last Filed: 01/12/23 00:47> Radiologist Impression: CT/CT abdomen pelvis w IV con IMPRESSION: 1.? Mild mesenteric stranding in the left pelvis, which appears to be more closely associated with a segment of thick-walled small bowel rather than colonic diverticula, suggesting possible enteritis. 2.? Mild biliary ductal dilatation. Distal filling defect in the CBD is suspicious for choledocholithiasis. This may be further assessed with ERCP. 3.? Subtle stranding adjacent to the gallbladder, for which cholecystitis cannot be excluded. This may be further assessed with ultrasound as clinically warranted. 4.? Right portal vein branches are not as well seen currently compared to prior. Patency may be further assessed with Doppler ultrasound. 5.? Moderate-sized hiatal hernia. US/US abdomen limited IMPRESSION: The common bile duct is dilated at 0.9 cm. The distal common bile duct, where soft tissue density filling defect is seen on the CT scan, is obscured by bowel gas. As stated at the time of the CT scan, ERCP would be useful for further evaluation.? <Chato Stahl MD - Last Filed: 01/12/23 00:47> Medications Administered Generic Name Dose Route Start Last Admin Trade Name Freq PRN Reason Stop Dose Admin Ceftriaxone Sodium 1 gm/ 50 mls @ 100 mls/hr 01/11/23 23:00 01/12/23 00:05 Sodium Chloride IV 100 mls/hr Q24H KALEY Administration Lactated Ringer's 1,000 mls @ 250 mls/hr 01/11/23 23:00 01/11/23 23:05 Lr IVCONT 250 mls/hr .Q4H KALEY Administration Discontinued Medications Generic Name Dose Route Start Last Admin Trade Name Freq PRN Reason Stop Dose Admin Acetaminophen 650 mg 01/11/23 21:47 01/11/23 22:11 Acetaminophen 325 Mg Tablet PO 01/11/23 21:48 650 mg ONCE ONE Administration Sodium Chloride 1,000 mls @ 999 mls/hr 01/11/23 20:14 01/11/23 23:00 Ns IV 01/11/23 21:14 Infused .Q1H1M ONE Infusion Magnesium Sulfate 2 gm in 50 mls @ 100 mls/hr 01/11/23 20:45 01/11/23 22:15 Magnesium Sulfate/H2o IV 01/11/23 21:14 Infused ONCE ONE Infusion Piperacillin Sod/Tazobactam 50 mls @ 100 mls/hr 01/11/23 21:50 01/11/23 23:02 Sod 3.375 gm/ Sodium Chloride IV 01/11/23 22:19 Infused ONCE ONE Infusion Iohexol 100 ml 01/11/23 20:37 01/11/23 20:38 Iohexol 350 Mg/Ml 100 Ml Infus..Btl IV 01/11/23 20:38 85 ml ONCE ONE Administration Morphine Sulfate 4 mg 01/11/23 20:14 01/11/23 20:26 Morphine Sulfate 4 Mg/Ml Cartridge IVPUSH 01/11/23 20:15 4 mg ONCE ONE Administration Protocol Ondansetron HCl 4 mg 01/11/23 20:14 01/11/23 20:26 Ondansetron Hcl 4 Mg/2 Ml Vial IVPUSH 01/11/23 20:15 4 mg ONCE ONE Administration <KIA Barba - Last Filed: 01/11/23 19:58> Medications Administered Generic Name Dose Route Start Last Admin Trade Name Freq PRN Reason Stop Dose Admin Ceftriaxone Sodium 1 gm/ 50 mls @ 100 mls/hr 01/11/23 23:00 01/12/23 00:05 Sodium Chloride IV 100 mls/hr Q24H KALEY Administration Lactated Ringer's 1,000 mls @ 250 mls/hr 01/11/23 23:00 01/11/23 23:05 Lr IVCONT 250 mls/hr .Q4H KALEY Administration Discontinued Medications Generic Name Dose Route Start Last Admin Trade Name Freq PRN Reason Stop Dose Admin Acetaminophen 650 mg 01/11/23 21:47 01/11/23 22:11 Acetaminophen 325 Mg Tablet PO 01/11/23 21:48 650 mg ONCE ONE Administration Sodium Chloride 1,000 mls @ 999 mls/hr 01/11/23 20:14 01/11/23 23:00 Ns IV 01/11/23 21:14 Infused .Q1H1M ONE Infusion Magnesium Sulfate 2 gm in 50 mls @ 100 mls/hr 01/11/23 20:45 01/11/23 22:15 Magnesium Sulfate/H2o IV 01/11/23 21:14 Infused ONCE ONE Infusion Piperacillin Sod/Tazobactam 50 mls @ 100 mls/hr 01/11/23 21:50 01/11/23 23:02 Sod 3.375 gm/ Sodium Chloride IV 01/11/23 22:19 Infused ONCE ONE Infusion Iohexol 100 ml 01/11/23 20:37 01/11/23 20:38 Iohexol 350 Mg/Ml 100 Ml Infus..Btl IV 01/11/23 20:38 85 ml ONCE ONE Administration Morphine Sulfate 4 mg 01/11/23 20:14 01/11/23 20:26 Morphine Sulfate 4 Mg/Ml Cartridge IVPUSH 01/11/23 20:15 4 mg ONCE ONE Administration Protocol Ondansetron HCl 4 mg 01/11/23 20:14 01/11/23 20:26 Ondansetron Hcl 4 Mg/2 Ml Vial IVPUSH 01/11/23 20:15 4 mg ONCE ONE Administration <Chato Stahl MD - Last Filed: 01/12/23 00:47> Discharge Plan Discharge Clinical Impression: Choledocholithiasis <KIA Barba - Last Filed: 01/11/23 19:58> Patient Disposition: Admitted As Inpatient <KIA Barba - Last Filed: 01/11/23 19:58>
[2023-01-11 20:03] LABS: MANUAL DIFF FLAG NO
[2023-01-11 20:09] LABS: Basophils Percent Auto 0.1 % (0-2); Eosinophils Percent Auto 0.1 % (0-4); Hematocrit 39.8 % (37.0-47.0); Hemoglobin 13.6 g/dl (12.0-16.0); Imm Gran Abs Auto 0.03 X10*3/uL (0.00-0.03); Imm Gran Pct Auto 0.3 % (0.0-0.4); Lymphocytes Absolute Auto 0.7 X10*3/uL (1.2-4.9); Lymphocytes Percent Auto 6.4 % (20-40); Mean Corpuscular HGB Conc 34.2 g/dl (31.0-35.0); Mean Corpuscular Hemoglobin 29.7 pg (27.0-33.0); Mean Corpuscular Volume 86.9 fL (80.0-98.0); Monocytes Absolute Auto 0.9 X10*3/uL (0.1-1.2); Monocytes Percent Auto 8.6 % (2-11); Neutrophils Absolute Auto 8.6 x10*3/uL (2.0-8.3); Neutrophils Percent Auto 84.5 % (45-73); Platelet Count 300 X10*3/uL (160-400); Red Blood Count 4.58 X10*6/uL (4.20-5.50); Red Cell Distribution Width 13.2 % (11.0-16.0); White Blood Count 10.2 X10*3/uL (4.8-10.8)
[2023-01-11 20:23] VITALS: BP 144/70; PULSE 90; RESP 18; TEMP 38.1; O2SAT 95
--- NOTE | 2023-01-11 20:24 | MHC.EDTECH ---
Pt changed over into hospital attire
[2023-01-11 20:26] LABS: Alanine Aminotransferase 282 U/L (0-31); Albumin Level 4.2 g/dL (3.5-5.0); Alkaline Phosphatase 580 U/L (39-117); Anion Gap 16 (12-20); Aspartate Amino Transferase 263 U/L (5-31); Blood Urea Nitrogen 12 mg/dL (9-16); Calcium 10.3 mg/dL (8.4-10.2); Carbon Dioxide 22 mmol/L (22-29); Chloride 101 mmol/L (96-108); Creatinine Clr Calc Pharmacy 46.3; Estimated Glomerular Filt Rate 53; Glucose Random 124 mg/dL (60-115); Lipase 234 U/L (8-78); Magnesium 1.1 mg/dL (1.6-2.6); Potassium 4.2 mmol/L (3.3-5.1); Sodium 135 mmol/L (135-145); Total Protein 6.5 g/dL (6.5-8.0)
[2023-01-11] MEDS: ondansetron HCL 4 MG/2 ML VIAL IVPUSH (20:26)
[2023-01-11] MEDS: Morphine Sulfate 4 MG/ML CARTRIDGE IVPUSH (20:26)
[2023-01-11] MEDS: 0.9 % Sodium Chloride 1,000 ML 999 ML IV (20:26)
[2023-01-11] MEDS: iohexoL 350 MG/ML 100 ML INFUS..BTL IV (20:38)
[2023-01-11] MEDS: Magnesium Sulfate/H2O 2 GM/50 ML PIGGYBACK IV (21:08)
[2023-01-11 21:09] LABS: Appearance Urine Clear; Color Urine Dark Yellow; Glucose Urine UA Negative (Negative); Leukocyte Esterase Urine Moderate (2+) (Negative); Nitrite Urine Negative (Negative); Specific Gravity - Urine 1.015 (1.005-1.025); UMIC TRIGGER UACC YES; Urine Blood Negative (Negative); Urine Ketones Trace mg/dL (Negative); Urine Protein Negative (Neg-Trace)
[2023-01-11 21:21] LABS: Bacteria Urine None Seen (None Seen); Hyaline Casts Urine 0-2 /LPF (0-2); RBC Urine 0-2 /HPF (0-2); Squamous Epithelial Cell Urine 0-2 /HPF (0-2); WBC Urine 0-5 /HPF (0-5)
[2023-01-11] MEDS: Piperacillin Sodium/Tazobactam 3.375 GM in 0.9 % Sodium Chloride 50 ML IV (22:11)
[2023-01-11] MEDS: Acetaminophen 325 MG TABLET 650 MG PO (22:11)
[2023-01-11 22:12] LABS: Lactic Acid 0.7 mmol/L (0.5-2.0)
[2023-01-11 22:13] VITALS: BP 115/59; PULSE 103; RESP 16; O2SAT 96
[2023-01-11 22:54] VITALS: BP 115/59; PULSE 92; RESP 18; TEMP 37.4; O2SAT 94
[2023-01-11] MEDS: Lactated Ringers 1,000 ML 250 ML IVCONT (23:05)
--- NOTE | 2023-01-11 23:09 | P.HPHOSP_ITS ---
History of Present Illness Date of Service: 01/11/23 Chief Complaint: Abdominal pain 72-year-old female past medical history of hypertension, HLD presents to the hospital with complaints of abdominal pain in the epigastric area. Patient reports that her symptoms started since Sunday, spasm like,intermittent, 8 /10,sometimes radiating to the right upper quadrant, associated with 1 episode of vomiting, decreased oral intake, not worsened with oral intake, denies any fever, but had chills. . No similar episode. Reports no chest pain, no shortness of breath, no diarrhea, some constipation, no urinary symptoms and no lower extremity edema No weakness numbness or headache. On arrival to the ED vitals are significant fever of 100.5, respiratory rate of 19, heart rate of 118, blood pressure stable Labs are significant for WBC count of 10.2, magnesium level of 1.1, total bilirubin of 5, AST of 263, ALT of 282, alk-phos of 580, lipase of 234 CT abdomen as well as ultrasound showed dilated CBD, with concern for possible acute cholecystitis as well as choledocholithiasis Patient started on IV fluids, IV antibiotics and will be admitted for further management Review of Systems Review of Systems: Yes all other systems are reviewed and are negative PMFSH Medical History Hyperlipidemia Hypertension Family History Other No family history of coronary artery disease Surgical History H/O: hysterectomy History of rotator cuff surgery Social History Household Members: Spouse Housing: House Do you presently have visiting nurse or other home services: No Alcohol intake: never Patient Tobacco Use Status: Former Tobacco user Quit Date: 50 years ago Use of substances other than those prescribed or required for medical reasons: No Advance Directives: No Advance Directives Information Provided: No service: No Current occupational status: retired Meds Allergies Allergy/AdvReac Type Severity Reaction Status Date / Time No Known Allergies Allergy Verified 01/11/23 19:49 Active Medications: Current Medications Acetaminophen (Acetaminophen 325 Mg Tablet) 650 mg PO Q6H PRN PRN Reason: Pain, Mild (Pain Scale 1-3) Ceftriaxone Sodium 1 gm/ (Sodium Chloride) 50 mls @ 100 mls/hr IV Q24H [facility] Metronidazole (Flagyl) 500 mg in 100 mls @ 100 mls/hr IV Q8H [facility] Lactated Ringer's (Lr) 1,000 mls @ 100 mls/hr IVCONT .Q10H [facility] Morphine Sulfate (Morphine Sulfate 4 Mg/Ml Cartridge) 4 mg IVPUSH Q4H PRN; Protocol PRN Reason: Pain, Severe (Pain Scale 7-10) Ondansetron HCl (Ondansetron Hcl 4 Mg/2 Ml Vial) 4 mg IVPUSH Q8H PRN PRN Reason: Nausea and Vomiting Sodium Chloride (0.9 % Sodium Chloride Flush 3 Ml Syringe) 3 ml IVFLUSH QSHIFT REPLACED BY [facility] Home Medications Medication Instructions Recorded Confirmed Last Taken Type atenolol 50 mg tablet 1 tab PO DAILY 07/26/22 07/26/22 07/25/22 History fluticasone propionate 50 1 spray intranasal DAILY 07/26/22 07/26/22 07/25/22 History mcg/actuation nasal spray,suspension lisinopril 40 mg tablet 1 tab PO DAILY 07/26/22 07/26/22 07/25/22 History magnesium oxide 400 mg (241.3 mg 1 tab PO BEDTIME 07/26/22 07/26/22 07/25/22 History magnesium) tablet omeprazole 20 mg capsule,delayed 1 cap PO SUTUTH 07/26/22 07/26/22 07/25/22 History release Physical Exam Vital Signs and Narrative: Vital Signs: Last Vital Signs Temp 100.5 F H 01/11/23 20:23 Pulse 103 H 01/11/23 22:13 Resp 16 01/11/23 22:13 BP 115/59 L 01/11/23 22:13 Pulse Ox 96 01/11/23 22:13 O2 Del Method Room Air 01/11/23 22:13 BMI result Body Mass Index 29.5 Const: General: cooperative and no acute distress Orientation/c onsciousness: patient oriented x3 Eyes: General: appearance normal, both eyes and all related structures Pupils: Equal, round and reactive pupils present Resp: Effort & Inspection: normal respiratory effort Auscultation: clear to auscultation bilaterally Cardio: Rate: regular rate Rhythm: regular rhythm GI: Other: abdomen is soft, mild epigastric tenderness, no rebound or guarding Palpation (GI): Soft to palpation Auscultation: normal bowel sounds Skin: General skin exam: no rashes or lesions noted Neuro: General: patient oriented x3 Cranial nerves: Yes Equal, round and reactive pupils present Cognition (Neuro): normal cognition Extrem: General: Yes normal to inspection and Yes no pedal edema Results Labs 01/11/23 19:58 01/11/23 19:58 Labs: Laboratory Results - last 24 hr 01/11/23 01/11/23 01/11/23 19:58 19:58 20:54 MCV 86.9 MCH 29.7 MCHC 34.2 RDW 13.2 Plt Count 300 D MPV 9.0 L Immature Gran % (Auto) 0.3 Neut % (Auto) 84.5 H Lymph % (Auto) 6.4 L [place] % (Auto) 8.6 Eos % (Auto) 0.1 Baso % (Auto) 0.1 Lymph # (Auto) 0.7 L [place] # (Auto) 0.9 Eos # (Auto) 0.0 Baso # (Auto) 0.0 Abs Immat Gran (auto) 0.03 Absolute Neuts (auto) 8.6 H Absolute Nucleated RBC 0.000 Nucleated RBC % (auto) 0.0 Anion Gap 16 Estim Creat Clear Calc 46.3 Estimated GFR 53 Random Glucose 124 H Lactic Acid Calcium 10.3 H D Magnesium 1.1 L* Total Bilirubin 5.0 H AST 263 H ALT 282 H Alkaline Phosphatase 580 H Total Protein 6.5 Albumin 4.2 Lipase 234 H Urine Color Dark Yellow Urine Appearance Clear Urine pH 6.0 Ur Specific [place] 1.015 Urine Protein Negative Urine Glucose (UA) Negative Urine Ketones Trace Urine Blood Negative Urine Nitrite Negative Ur Leukocyte Esterase Moderate (2+) H Urine RBC 0-2 Urine WBC 0-5 Ur Squamous Epith Cells 0-2 Urine Bacteria None Seen Hyaline Casts 0-2 01/11/23 21:55 MCV MCH MCHC RDW Plt Count MPV Immature Gran % (Auto) Neut % (Auto) Lymph % (Auto) [place] % (Auto) Eos % (Auto) Baso % (Auto) Lymph # (Auto) [place] # (Auto) Eos # (Auto) Baso # (Auto) Abs Immat Gran (auto) Absolute Neuts (auto) Absolute Nucleated RBC Nucleated RBC % (auto) Anion Gap Estim Creat Clear Calc Estimated GFR Random Glucose Lactic Acid 0.7 Calcium Magnesium Total Bilirubin AST ALT Alkaline Phosphatase Total Protein Albumin Lipase Urine Color Urine Appearance Urine pH Ur Specific [place] Urine Protein Urine Glucose (UA) Urine Ketones Urine Blood Urine Nitrite Ur Leukocyte Esterase Urine RBC Urine WBC Ur Squamous Epith Cells Urine Bacteria Hyaline Casts Imaging Radiologist's Impressions: Impressions Abdomen/Pelvis CT 01/11/23 20:48 IMPRESSION: 1. Mild mesenteric stranding in the left pelvis, which appears to be more closely associated with a segment of thick-walled small bowel rather than colonic diverticula, suggesting possible enteritis. 2. Mild biliary ductal dilatation. Distal filling defect in the CBD is suspicious for choledocholithiasis. This may be further assessed with ERCP. 3. Subtle stranding adjacent to the gallbladder, for which cholecystitis cannot be excluded. This may be further assessed with ultrasound as clinically warranted. 4. Right portal vein branches are not as well seen currently compared to prior. Patency may be further assessed with Doppler ultrasound. 5. Moderate-sized hiatal hernia. Abdomen Ultrasound 01/11/23 22:08 IMPRESSION: The common bile duct is dilated at 0.9 cm. The distal common bile duct, where soft tissue density filling defect is seen on the CT scan, is obscured by bowel gas. As stated at the time of the CT scan, ERCP would be useful for further evaluation. Assessment and Plan (1) Epigastric abdominal pain: Status: Acute (2) Choledocholithiasis: Status: Acute (3) Acute pancreatitis: Status: Acute (4) Acute cholecystitis: Status: Acute (5) Transaminitis: Status: Acute (6) Dilated cbd, acquired: Status: Acute Plan 72-year-old female with past medical history of HTN, HLD presents to the hospital with abdominal pain found to have the following # epigastric abdominal pain - likely multifactorial in the setting of acute cholecystitis as well as choledocholithiasis as well as acute pancreatitis, - patient has elevated lipase, evidence of CBD dilation, choledocholithiasis, as well as evidence of acute cholecystitis - will treat with pain control, IV fluids, IV antibiotics, # acute pancreatitis - likely gallbladder pancreatitis - 0.9 cm dilation of the CBD - elevated lipase, epigastric abdominal pain - will treat with IV fluids, pain control, keep NPO # choledocholithiasis - has evidence of cholecystitis as well as choledocholithiasis with dilation of the CBD - will keep NPO, MRCP/ ERCP in a.m. - gastroenterology consulted # acute cholecystitis - has leukocytosis, evidence of acute cholecystitis on CT abdomen - will treat with IV antibiotics - follow cultures - general surgery consulted # acute transaminitis - secondary to above - IV fluids - follow CMP # hypertension - stable - resume antihypertensives DVT prophylaxis: This patient surgical interventions including ERCP given patient's need for further evaluation by GI as well as antibiotics for acute pancreatitis and cholecystitis patient will require minimum 2 night inpatient hospital stay for further management and monitoring Time Spent With Patient Time: Total time managing care of this patient today ____ minutes. Quality Stroke Does the patient have a stroke diagnosis?: No VTE Prior VTE?: No VTE Risk Level:: Medical - moderate - high VTE Device Contraindication: N/A - Device Ordered VTE Drug Contraindication: Treatment Not Indicated
--- NOTE | 2023-01-11 23:46 | MHC.SHP ---
Pre-Procedural Eval Section A Date of Service: 01/12/23 The patient is an INPATIENT: Yes The History & Physical has been completed within 30 days and I have reviewed it.: Yes Section B Chief Complaint: Acute georgina, Choledocholithiasis Allergies: Allergies Allergy/AdvReac Type Severity Reaction Status Date / Time No Known Allergies Allergy Verified 01/11/23 19:49 Plan I have reviewed the history and physical and performed a pertinent physical examination on my patient. No changes have occurred unless specified. Time Spent With Patient Time: Total time managing care of this patient today ____ minutes.
[2023-01-12] VITALS (12 sets, daily range): BP systolic 96–162; BP diastolic 52–71; PULSE 52–71; RESP 14–20; TEMP 36.1–36.6; O2SAT 96–100; BMI 29.5
[2023-01-12] MEDS: cefTRIAXone sodium 1 GM in 0.9 % Sodium Chloride 50 ML IV ×2 (00:05→23:01)
[2023-01-12] MEDS: metroNIDAZOLE/NS 500 MG/100 ML PIGGYBACK 100 MG IV ×2 (01:05→08:33)
--- NOTE | 2023-01-12 03:02 | PC.NURSE ---
Addendum entered by Ivette Gardner RN 01/12/23 03:08: hand off to dory newman Original Note: hand off to dory nettles
[2023-01-12] MEDS: Lactated Ringers 1,000 ML 250 ML IVCONT ×5 (03:18→19:34)
--- NOTE | 2023-01-12 03:20 | PC.NURSE ---
assumed care of pt pt sleeping respirations even and unlabored
[2023-01-12 06:32] LABS: MANUAL DIFF FLAG NO
[2023-01-12 06:34] LABS: Basophils Percent Auto 0.2 % (0-2); Hematocrit 36.7 % (37.0-47.0); Hemoglobin 12.3 g/dl (12.0-16.0); Imm Gran Abs Auto 0.05 X10*3/uL (0.00-0.03); Imm Gran Pct Auto 0.4 % (0.0-0.4); Lymphocytes Absolute Auto 1.3 X10*3/uL (1.2-4.9); Lymphocytes Percent Auto 11.8 % (20-40); Mean Corpuscular HGB Conc 33.5 g/dl (31.0-35.0); Mean Corpuscular Hemoglobin 29.9 pg (27.0-33.0); Mean Corpuscular Volume 89.1 fL (80.0-98.0); Mean Platelet Volume 9.2 fL (9.4-12.3); Monocytes Absolute Auto 1.3 X10*3/uL (0.1-1.2); Monocytes Percent Auto 11.3 % (2-11); Neutrophils Absolute Auto 8.5 x10*3/uL (2.0-8.3); Neutrophils Percent Auto 76.3 % (45-73); Platelet Count 266 X10*3/uL (160-400); Red Blood Count 4.12 X10*6/uL (4.20-5.50); Red Cell Distribution Width 13.6 % (11.0-16.0); White Blood Count 11.1 X10*3/uL (4.8-10.8)
[2023-01-12 06:40] LABS: INTERNATIONAL NORM RATIO 0.9 (0.9-1.1); Prothrombin Time 10.8 SEC (10.0-13.1)
[2023-01-12 06:50] LABS: Alanine Aminotransferase 236 U/L (0-31); Albumin Level 3.4 g/dL (3.5-5.0); Alkaline Phosphatase 473 U/L (39-117); Anion Gap 16 (12-20); Aspartate Amino Transferase 180 U/L (5-31); Bilirubin Direct 3.4 mg/dL (0.0-0.5); Blood Urea Nitrogen 11 mg/dL (9-16); Calcium 9.5 mg/dL (8.4-10.2); Carbon Dioxide 22 mmol/L (22-29); Chloride 103 mmol/L (96-108); Creatinine Clr Calc Pharmacy 47.8; Estimated Glomerular Filt Rate 55; Glucose Random 96 mg/dL (60-115); Lipase 33 U/L (8-78); Potassium 4.8 mmol/L (3.3-5.1); Sodium 136 mmol/L (135-145); Total Protein 5.3 g/dL (6.5-8.0)
--- NOTE | 2023-01-12 07:10 | PHA.MEDREC ---
Pharmacy Consult ? Medication Reconciliation Pharmacy has completed the medication reconciliation. completed by rn renewed by pharmacy eulalia
--- NOTE | 2023-01-12 08:08 | PC.NURSE ---
assumed care of this pt at 0700. pt resting quietly, sleeping on stretcher, in no apparent distress. rr even/unlabored. skin wpd
--- NOTE | 2023-01-12 08:23 | P.EN_ITS ---
Event Note Date of Service: 01/12/23 Event Note: GI Consult-Full note dictated Imp: Obstructive jaundice due to probable choledocholithiasis based on her clinical history and imaging. Although the lack of gallstones seen in the gallbladder is unusual. Other etiologies could include neoplasm of ampulla or bile duct. Presently she appears stable with a benign abdomen and nontoxic appearance. Her LFT's remain elevated this morning. Of note, she does have a known large hiatal hernia seen on EGD in 2003. She yamileth es any dysphagia nor significant GERD on omeprazole three times per week. Rec: ERCP today with me or Dr. Hall. Full consent obtained from her for this, including risks of bleeding, perforation, cholangitis, and pancreatitis. Continue antibiotics. D/W patient in detail and she is comfortable with this plan. Thanks Time Spent With Patient Time: Total time managing care of this patient today ____ minutes.
[2023-01-12 08:27] LABS: Magnesium 1.9 mg/dL (1.6-2.6)
--- NOTE | 2023-01-12 09:02 | PC.NURSE ---
pt a&o x4, pleasant, calm, and cooperative. resting quietly, on stretcher, in no apparent distress. awaiting admission assignment. medicated per oct. rr even/unlabored. wctm
--- NOTE | 2023-01-12 09:49 | PM.CNGS ---
History of Present Illness Consult details Consult date: 01/12/23 <Alem Rivas PA-C - Last Filed: 01/12/23 10:10> Reason for consult: gallstones (CBD stone) <HOWARD Carroll Last Filed: 01/12/23 10:10> Requesting physician: Cathy Hong <HOWARD Carroll Last Filed: 01/12/23 10:10> Narrative: Iliana Briceno is a 72 year old female with PMH of HTN, GERD, hiatal hernia who presented to the ED with complaints of epigastric abd pain. She was in her usual state of health and when she had acute onset of the epigastric pain on Sunday. The pain was constant and sharp in nature. She reports it was moderate in severity but due to the persistence of pain she came to the ED yesterday. She denies provoking or alleviating factors. She reports poor PO intake over the last week due to lack of appetite. She currently denies nausea but had one episode of emesis at home. She felt feverish and had chills at home. She denies changes in skin color but reports darkening of her urine. Work up in the ED included CBC, BMP and LFTs which was significant for total bilirubin of 5, AST of 263, ALT of 282, alk-phos of 580, lipase of 234. Her WBC count was normal but is slightly elevated on repeat labs to 11.1. She was tachycardic to 118 and had a mild fever of 100.[address]/US abdomen showed prominent common bile duct measures with distal filling defect in the CBD, echogenic bile in GB without wall thickening or pericholecystic fluid. She was admitted to the medical service for further treatment of the likely choledocolithiasis. They raised concern for acute cholecystitis and started her on IV abx empirically. <HOWARD Carroll Last Filed: 01/12/23 10:10> Review of Systems Constitutional: Constitutional: Reports as per HPI <HOWARD Carroll Last Filed: 01/12/23 10:10> ENT: Denies dizziness <HOWARD Carroll Last Filed: 01/12/23 10:10> Gastrointestinal: Gastrointestinal: Reports as per HPI, Denies melena, Denies change in bowel habits and Denies hematemesis <Alem Rivas PA-C - Last Filed: 01/12/23 10:10> Genitourinary: Genitourinary: Denies hematuria and Denies dysuria <Alem Rivas PA-C - Last Filed: 01/12/23 10:10> Integumentary/Breasts: Skin/Breast: Denies rash and Denies jaundice <Alem Rivas PA-C - Last Filed: 01/12/23 10:10> Neurologic: Denies dizziness <Alem Rivas PA-C - Last Filed: 01/12/23 10:10> PMFSH Past Medical History Medical History: Medical History (Updated 01/12/23 @ 00:47 by Chato Stahl MD) Hyperlipidemia Hypertension <HOWARD Carroll Last Filed: 01/12/23 10:10> Family History Family History: Family History Other No family history of coronary artery disease <Alem Rivas PA-C - Last Filed: 01/12/23 10:10> Surgical History Surgical History: Surgical History (Updated 01/12/23 @ 10:01 by Alem Rivas PA-C) H/O: hysterectomy History of rotator cuff surgery <HOWARD Carroll Last Filed: 01/12/23 10:10> Social History Social History: Social History Household Members: Spouse Housing: House Do you presently have visiting nurse or other home services: No Alcohol intake: never Patient Tobacco Use Status: Former Tobacco user Quit Date: 50 years ago Use of substances other than those prescribed or required for medical reasons: No Advance Directives: Yes Advance Directives on File: Yes Advance Directives Date on File: 01/12/23 service: No Current occupational status: retired <HOWARD Carroll Last Filed: 01/12/23 10:10> Meds Allergies/Adverse reactions: Allergies Allergy/AdvReac Type Severity Reaction Status Date / Time No Known Allergies Allergy Verified 01/11/23 19:49 <Alem Rivas PA-C - Last Filed: 01/12/23 10:10> Active Medications: Current Medications Acetaminophen (Acetaminophen 325 Mg Tablet) 650 mg PO Q6H PRN PRN Reason: Pain, Mild (Pain Scale 1-3) Ceftriaxone Sodium 1 gm/ (Sodium Chloride) 50 mls @ 100 mls/hr IV Q24H [facility] Last Infusion: 01/12/23 00:40 Dose: Infused Metronidazole (Flagyl) 500 mg in 100 mls @ 100 mls/hr IV Q8H [facility] Last Admin: 01/12/23 08:33 Dose: 100 mls/hr Lactated Ringer's (Lr) 1,000 mls @ 250 mls/hr IVCONT .Q4H [facility] Last Admin: 01/12/23 08:33 Dose: 250 mls/hr Morphine Sulfate (Morphine Sulfate 4 Mg/Ml Cartridge) 4 mg IVPUSH Q4H PRN; Protocol PRN Reason: Pain, Severe (Pain Scale 7-10) Ondansetron HCl (Ondansetron Hcl 4 Mg/2 Ml Vial) 4 mg IVPUSH Q8H PRN PRN Reason: Nausea and Vomiting Sodium Chloride (0.9 % Sodium Chloride Flush 3 Ml Syringe) 3 ml IVFLUSH QSHIFT [facility] Last Admin: 01/12/23 07:38 Dose: Not Given <Alem Rivas PA-C - Last Filed: 01/12/23 10:10> Home medications: Home Medications Medication Instructions Recorded Confirmed Last Taken Type atenolol 50 mg tablet 1 tab PO DAILY 07/26/22 01/12/23 01/11/23 History fluticasone propionate 50 1 spray intranasal DAILY 07/26/22 01/12/23 01/11/23 History mcg/actuation nasal spray,suspension lisinopril 40 mg tablet 1 tab PO DAILY 07/26/22 01/12/23 01/11/23 History magnesium oxide 400 mg (241.3 mg 1 tab PO BEDTIME 07/26/22 01/12/23 3 Days Ago History magnesium) tablet ~01/09/23 omeprazole 20 mg capsule,delayed 1 cap PO SUTUTH 07/26/22 01/12/23 01/11/23 History release <Alem Rivas PA-C [place] Last Filed: 01/12/23 10:10> Physical Exam Vital Signs: Vital Signs: Last Vital Signs Temp 97.9 F 01/12/23 06:00 Pulse 65 01/12/23 06:00 Resp 14 01/12/23 06:00 BP 116/61 01/12/23 06:00 Pulse Ox 96 01/12/23 06:00 O2 Del Method Room Air 01/12/23 06:00 BMI result Body Mass Index 29.5 <Alem Rivas PA-C - Last Filed: 01/12/23 10:10> Const: General: comfortable, no acute distress and alert <HOWARD Carroll Last Filed: 01/12/23 10:10> Orientation/consciousness: patient oriented x3 <HOWARD Carroll Last Filed: 01/12/23 10:10> Eyes: Sclerae: scleral abnormal (icteric) <HOWARD Carroll Last Filed: 01/12/23 10:10> Resp: Effort & Inspection: normal respiratory effort <HOWARD Carroll Last Filed: 01/12/23 10:10> GI: Inspection: Yes normal to inspection and No distended <Alem Rivas PA-C [place] Last Filed: 01/12/23 10:10> Palpation (GI): Soft to palpation, Tenderness to palpation present (GI) in the epigastrum; not in the RUQ and Rodrigues's sign negative, no guarding and not rigid <HOWARD Carroll Last Filed: 01/12/23 10:10> Percussion: Yes normal to percussion <HOWARD Carroll Last Filed: 01/12/23 10:10> Skin: General skin exam: jaundice <Alem Rivas PA-C [place] Last Filed: 01/12/23 10:10> Neuro: General: patient oriented x3 and moves all extremities <HOWARD Carroll Last Filed: 01/12/23 10:10> Results Labs Result diagrams: 01/12/23 05:56 01/12/23 05:56 <Alem Rivas PA-C - Last Filed: 01/12/23 10:10> Labs: Abnormal lab results 01/11/23 01/11/23 01/11/23 Range/Units 19:58 19:58 20:54 WBC (4.8-10.8) X10*3/uL RBC (4.20-5.50) X10*6/uL Hct (37.0-47.0) % MPV 9.0 L (9.4-12.3) fL Neut % (Auto) 84.5 H (45-73) % Lymph % (Auto) 6.4 L (20-40) % [place] % (Auto) (2-11) % Lymph # (Auto) 0.7 L (1.2-4.9) X10*3/uL [place] # (Auto) (0.1-1.2) X10*3/uL Abs Immat Gran (auto) (0.00-0.03) X10*3/uL Absolute Neuts (auto) 8.6 H (2.0-8.3) x10*3/uL Random Glucose 124 H (60-115) mg/dL Calcium 10.3 H D (8.4-10.2) mg/dL Magnesium 1.1 L* (1.6-2.6) mg/dL Total Bilirubin 5.0 H (0.0-1.0) mg/dL Direct Bilirubin (0.0-0.5) mg/dL AST 263 H (5-31) U/L ALT 282 H (0-31) U/L Alkaline Phosphatase 580 H (39-117) U/L Total Protein (6.5-8.0) g/dL Albumin (3.5-5.0) g/dL Lipase 234 H (8-78) U/L Ur Leukocyte Esterase Moderate (2+) H (Negative) 01/12/23 01/12/23 Range/Units 05:56 05:56 WBC 11.1 H (4.8-10.8) X10*3/uL RBC 4.12 L (4.20-5.50) X10*6/uL Hct 36.7 L (37.0-47.0) % MPV 9.2 L (9.4-12.3) fL Neut % (Auto) 76.3 H (45-73) % Lymph % (Auto) 11.8 L (20-40) % [place] % (Auto) 11.3 H (2-11) % Lymph # (Auto) (1.2-4.9) X10*3/uL [place] # (Auto) 1.3 H (0.1-1.2) X10*3/uL Abs Immat Gran (auto) 0.05 H (0.00-0.03) X10*3/uL Absolute Neuts (auto) 8.5 H (2.0-8.3) x10*3/uL Random Glucose (60-115) mg/dL Calcium (8.4-10.2) mg/dL Magnesium (1.6-2.6) mg/dL Total Bilirubin 5.0 H (0.0-1.0) mg/dL Direct Bilirubin 3.4 H (0.0-0.5) mg/dL AST 180 H (5-31) U/L ALT 236 H (0-31) U/L Alkaline Phosphatase 473 H (39-117) U/L Total Protein 5.3 L (6.5-8.0) g/dL Albumin 3.4 L (3.5-5.0) g/dL Lipase (8-78) U/L Ur Leukocyte Esterase (Negative) Short CBC 01/11/23 01/12/23 Range/Units 19:58 05:56 WBC 10.2 11.1 H (4.8-10.8) X10*3/uL Hgb 13.6 12.3 (12.0-16.0) g/dl Hct 39.8 36.7 L (37.0-47.0) % Plt Count 300 D 266 (160-400) X10*3/uL BMP 01/11/23 01/12/23 19:58 05:56 Sodium 135 136 Potassium 4.2 D 4.8 Chloride 101 103 Carbon Dioxide 22 22 BUN 12 11 Creatinine 1.02 0.99 Calcium 10.3 H D 9.5 D Liver Function 01/11/23 01/12/23 Range/Units 19:58 05:56 Total Bilirubin 5.0 H 5.0 H (0.0-1.0) mg/dL Direct Bilirubin 3.4 H (0.0-0.5) mg/dL AST 263 H 180 H (5-31) U/L ALT 282 H 236 H (0-31) U/L Alkaline Phosphatase 580 H 473 H (39-117) U/L Albumin 4.2 3.4 L (3.5-5.0) g/dL Urine 01/11/23 Range/Units 20:54 Urine Color Dark Yellow Urine Appearance Clear Urine pH 6.0 (5.0-9.0) Ur Specific [place] 1.015 (1.005-1.025) Urine Protein Negative (Neg-Trace) mg/dL Urine Glucose (UA) Negative (Negative) mg/dL All other labs normal. <Alem Rivas PA-C - Last Filed: 01/12/23 10:10> Imaging Abdomen CT scan report/results: report reviewed and image reviewed <Alem Rivas PA-C - Last Filed: 01/12/23 10:10> Assessment and Plan (1) Choledocholithiasis: Status: Acute <Alem Rivas PA-C - Last Filed: 01/12/23 10:10> Patient had epigastric pain for a few days Says this had actually resolved this morning LFTs elevated CBD showing question of filling defects distally Patient therefore to undergo ERCP Abdomen otherwise soft, benign, no significant tenderness at this time She says she feels comfortable Will review images If with gallstones, consider cholecystectomy to prevent recurrences Patient aware of the above and says she understands I will follow along Seen and examined independently <Emir Banks MD - Last Filed: 01/12/23 13:27> 72 year old female with a few day hx of epigastric pain with elevated LFTs and imaging demonstrating dilated CBD with filing defect concerning for CBD stone. She was seen by GI and is scheduled for ERCP today. We discussed eventual cholecystectomy. She is unsure she wants to have this done during her admission. Risk of recurrence was discussed with her and she wants to talk with her . Clinically I do not feel she has acute cholecystitis as the US does not show any GB wall thickening or pericholecystitic fluid. The pain is likely secondary to the CBD stone/pancreatitis. If her post ERCP course is uncomplicated and her LFTs are downtrending, she can be discharged and f/u with Dr. Banks to schedule the CCY on an outpatient basis. She is comfotable with this plan. Will continue to follow. <Alem Rivas PA-C - Last Filed: 01/12/23 10:10> Time Spent With Patient Time: Total time managing care of this patient today ____ minutes. <Alem Rivas PA-C - Last Filed: 01/12/23 10:10> Procedures Date of Service Date of Service: 01/12/23 <Alem Rivas PA-C - Last Filed: 01/12/23 10:10> 01/12/23 <Emir Banks MD - Last Filed: 01/12/23 13:27>
--- NOTE | 2023-01-12 10:07 | MHC.CM.ED ---
Met with patient in regards to discharge planning. Patient lives with her and 2 adult daughters, ambulates independently and had no services prior to coming to the hospital. No services anticipated to be needed. PCP verified. Copy of HCP verified to be on file. IMM explained and signed. Patient's will transport her home when medically stable. Continue to monitor for d/c needs.
--- NOTE | 2023-01-12 10:24 | CONS_ITS ---
DATE OF SERVICE: 01/12/2023 REASON FOR CONSULTATION: Obstructive jaundice. HISTORY OF PRESENT ILLNESS: The patient is a 72-year-old female who was in her usual state of health up until about a week or so ago, when she began having episodes of some epigastric and right upper quadrant discomfort. These episodes have been intermittent, but have been increasing in severity prompting her ER visit last night. Her workup has revealed newly elevated LFTs and new findings on her imaging studies as compared to more recent studies at the end of 2021. She appears to have obstructive jaundice and a probable distal common duct stone. At home, she did have one episode of vomiting, but no hematemesis nor coffee-grounds emesis. She has not noticed any melena nor hematochezia. At home, she was eating comfortably and denies any significant heartburn nor dysphagia. She does have a known history of a large hiatal hernia seen on endoscopy many years ago. She takes omeprazole 3 times a week with good relief of reflux symptoms. In the ER, she has been stable with a low-grade temperature. She presently feels well and denies any abdominal pain at the moment. Her temperature last evening was 100.5, but she has been afebrile since then. She did have some chills at home, but has not had any chills in the ER. She denies any previous history of liver disease in herself nor family members. She does not use any significant amounts of alcohol. She has not been on any new medication. MEDICATIONS: At home include atenolol, lisinopril, omeprazole. Her medications here in the hospital include acetaminophen, ceftriaxone, metronidazole, morphine p.r.n., and Zofran p.r.n. PAST MEDICAL HISTORY: Complete hysterectomy. Bilateral shoulder surgery for rotator cuff. Hypertension. Hiatal hernia with reflux. Hyperlipidemia. Asthma. She denies history of [place], diabetes, stroke, nor kidney disease. History of diverticulitis involving the sigmoid colon and what appeared to be the area of the hepatic flexure, most recently as of the fall. 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 She does not smoke nor use any significant alcohol. She is . FAMILY HISTORY: Noncontributory. REVIEW OF SYSTEMS: CONSTITUTIONAL: Prior to the past week or so, she had been feeling very well with good energy, good appetite. SKIN: No rash. No pruritus. HEENT: Negative. CARDIAC: No chest pain. PULMONARY: No cough, hemoptysis. GI: As above. URINARY: No dysuria. No hematuria. NEUROLOGIC: No headache or seizures. PSYCHIATRIC: Negative. PHYSICAL EXAMINATION: GENERAL: Again, the patient is a pleasant, alert and comfortable-appearing female. SKIN: Warm and dry. No obvious jaundice. Anicteric sclerae. Moist mucous membranes. NECK: Supple without lymphadenopathy. CHEST: Clear. CARDIAC: Normal S1, S2. ABDOMEN: Soft. Normal bowel sounds. Nondistended with some minimal epigastric tenderness but without mass, rebound, or guarding. EXTREMITIES: Without edema. NEUROLOGICAL: She is alert and oriented. LABORATORIES: On admission, she had a white blood cell count of 10.2, but this morning 11.1. Hemoglobin 12.3, platelets 266,000. PT 10.8 with INR 0.9. Normal electrolytes, BUN and creatinine. She had a normal liver profile in June 2022. Admission last evening in the ER, her total bilirubin was up to 5.0, AST 263, ALT 282, and alkaline phosphatase 580. Repeat LFTs from this morning showed a total bilirubin of 5.0, direct bilirubin 3.4, AST 180, ALT 236, and alkaline phosphatase 473. Albumin 3.4. Lipase on admission in the ER yesterday was 234, but today is 33. Her abdominal CT scan described new biliary ductal dilatation with a common duct of 9 mm and what appeared to be a distal filling defect consistent with choledocholithiasis. The pancreas appeared normal. Her ultrasound from yesterday described a common duct of 9 mm well, but without any definitive choledocholithiasis. The gallbladder appeared basically normal and without evidence of stones, wall thickening, nor any surrounding fluid. IMPRESSION: Given the patient's clinical history, she appears to have developed acute obstructive jaundice most likely due to choledocholithiasis. The fact that her gallbladder does not appear to have stones is rather unusual, however. Other etiologies could include a distal bile duct tumor or ampullary tumor. At this point, she appears clinically stable without fever, peritoneal findings, nor any signs of sepsis. Given the clinical history, I would recommend ERCP today with either myself or Dr. Hall. Full consent has been obtained for this, including risks of bleeding, perforation, cholangitis, and pancreatitis. In the meantime, I would continue her antibiotics and observation. She does have a surgical consult pending as well for potential cholecystectomy, but again there is no evidence of any stones on her imaging studies in the gallbladder. Further plans in that regard will be made depending upon the ERCP findings. If she does have choledocholithiasis, then I would recommend eventual cholecystectomy anyway to rule out small stones in the gallbladder that are not being visulaized on the imaging studies that could cause recurrent problems in the future. This has all been discussed in detail with the patient and she is comfortable with the plan. MD MELANY Atkinson/OCTAVIA / [id number] MTDD
--- NOTE | 2023-01-12 12:13 | HO.PM.IMPN ---
Subjective Subjective Date of Service: 01/12/23 Interval History: Seen and evaluated less pain but still has it in RUQ no fever or chills no other overnight events Review of Systems Review of Systems: Yes all other systems are reviewed and are negative Physical Exam Vital Signs: Vital Signs: Last Vital Signs Temp 97.9 F 01/12/23 06:00 Pulse 65 01/12/23 06:00 Resp 14 01/12/23 06:00 BP 116/61 01/12/23 06:00 Pulse Ox 96 01/12/23 06:00 O2 Del Method Room Air 01/12/23 06:00 BMI result Body Mass Index 29.5 Const: Other: Constitutional : Awake, interactive, not in distress Neck : Normal inspection, Supple Cardiovascular : RRR, no JVP, no lower extremity edema Respiratory : good bilateral air entry, no crackles, wheezes or rhonchi Gastrointestinal: soft, lax, Normal bowel sounds, RUQ and epigastric tenderness, no surgical signs appreciated Skin : Warm, Dry Neurological : Alert & oriented x3, No focal deficit Objective Data Active Medications Acetaminophen (Acetaminophen 325 Mg Tablet) 650 mg PO Q6H PRN PRN Reason: Pain, Mild (Pain Scale 1-3) Ceftriaxone Sodium 1 gm/ (Sodium Chloride) 50 mls @ 100 mls/hr IV Q24H [facility] Last Infusion: 01/12/23 00:40 Dose: 0 mls/hr Documented By: ANDREA Metronidazole (Flagyl) 500 mg in 100 mls @ 100 mls/hr IV Q8H [facility] Last Infusion: 01/12/23 10:01 Dose: 0 mls/hr Documented By: XAVIER Lactated Ringer's (Lr) 1,000 mls @ 250 mls/hr IVCONT .Q4H [facility] Last Admin: 01/12/23 08:33 Dose: 250 mls/hr Documented By: XAVIER Morphine Sulfate (Morphine Sulfate 4 Mg/Ml Cartridge) 4 mg IVPUSH Q4H PRN; Protocol PRN Reason: Pain, Severe (Pain Scale 7-10) Ondansetron HCl (Ondansetron Hcl 4 Mg/2 Ml Vial) 4 mg IVPUSH Q8H PRN PRN Reason: Nausea and Vomiting Sodium Chloride (0.9 % Sodium Chloride Flush 3 Ml Syringe) 3 ml IVFLUSH QSHIFT [facility] Last Admin: 01/12/23 07:38 Dose: Not Given Documented By: XAVIER Non-Admin Reason: Med Not Available Labs 01/12/23 05:56 01/12/23 05:56 Labs: Laboratory Results - last 24 hr 01/11/23 01/11/23 01/11/23 19:58 19:58 20:54 MCV 86.9 MCH 29.7 MCHC 34.2 RDW 13.2 Plt Count 300 D MPV 9.0 L Immature Gran % (Auto) 0.3 Neut % (Auto) 84.5 H Lymph % (Auto) 6.4 L [place] % (Auto) 8.6 Eos % (Auto) 0.1 Baso % (Auto) 0.1 Lymph # (Auto) 0.7 L [place] # (Auto) 0.9 Eos # (Auto) 0.0 Baso # (Auto) 0.0 Abs Immat Gran (auto) 0.03 Absolute Neuts (auto) 8.6 H Absolute Nucleated RBC 0.000 Nucleated RBC % (auto) 0.0 PT INR Anion Gap 16 Estim Creat Clear Calc 46.3 Estimated GFR 53 Random Glucose 124 H Lactic Acid Calcium 10.3 H D Magnesium 1.1 L* Total Bilirubin 5.0 H Direct Bilirubin AST 263 H ALT 282 H Alkaline Phosphatase 580 H Total Protein 6.5 Albumin 4.2 Lipase 234 H Urine Color Dark Yellow Urine Appearance Clear Urine pH 6.0 Ur Specific [place] 1.015 Urine Protein Negative Urine Glucose (UA) Negative Urine Ketones Trace Urine Blood Negative Urine Nitrite Negative Ur Leukocyte Esterase Moderate (2+) H Urine RBC 0-2 Urine WBC 0-5 Ur Squamous Epith Cells 0-2 Urine Bacteria None Seen Hyaline Casts 0-2 01/11/23 01/12/23 01/12/23 21:55 05:56 05:56 MCV 89.1 MCH 29.9 MCHC 33.5 RDW 13.6 Plt Count 266 MPV 9.2 L Immature Gran % (Auto) 0.4 Neut % (Auto) 76.3 H Lymph % (Auto) 11.8 L [place] % (Auto) 11.3 H Eos % (Auto) 0.0 Baso % (Auto) 0.2 Lymph # (Auto) 1.3 [place] # (Auto) 1.3 H Eos # (Auto) 0.0 Baso # (Auto) 0.0 Abs Immat Gran (auto) 0.05 H Absolute Neuts (auto) 8.5 H Absolute Nucleated RBC 0.000 Nucleated RBC % (auto) 0.0 PT INR Anion Gap 16 Estim Creat Clear Calc 47.8 Estimated GFR 55 Random Glucose 96 Lactic Acid 0.7 Calcium 9.5 D Magnesium 1.9 Total Bilirubin 5.0 H Direct Bilirubin 3.4 H AST 180 H ALT 236 H Alkaline Phosphatase 473 H Total Protein 5.3 L Albumin 3.4 L Lipase 33 Urine Color Urine Appearance Urine pH Ur Specific [place] Urine Protein Urine Glucose (UA) Urine Ketones Urine Blood Urine Nitrite Ur Leukocyte Esterase Urine RBC Urine WBC Ur Squamous Epith Cells Urine Bacteria Hyaline Casts 01/12/23 05:56 MCV MCH MCHC RDW Plt Count MPV Immature Gran % (Auto) Neut % (Auto) Lymph % (Auto) [place] % (Auto) Eos % (Auto) Baso % (Auto) Lymph # (Auto) [place] # (Auto) Eos # (Auto) Baso # (Auto) Abs Immat Gran (auto) Absolute Neuts (auto) Absolute Nucleated RBC Nucleated RBC % (auto) PT 10.8 INR 0.9 Anion Gap Estim Creat Clear Calc Estimated GFR Random Glucose Lactic Acid Calcium Magnesium Total Bilirubin Direct Bilirubin AST ALT Alkaline Phosphatase Total Protein Albumin Lipase Urine Color Urine Appearance Urine pH Ur Specific [place] Urine Protein Urine Glucose (UA) Urine Ketones Urine Blood Urine Nitrite Ur Leukocyte Esterase Urine RBC Urine WBC Ur Squamous Epith Cells Urine Bacteria Hyaline Casts Assessment and Plan (1) Epigastric abdominal pain: Status: Acute (2) Dilated cbd, acquired: Status: Acute (3) Transaminitis: Status: Acute (4) Acute pancreatitis: Status: Acute (5) Choledocholithiasis: Status: Acute Plan 72-year-old female with past medical history of HTN, HLD presents to the hospital with abdominal pain found to have the following # acute pancreatitis likely gallbladder stones pancreatitis IV fluids, pain control, keep NPO # choledocholithiasis has evidence of cholecystitis as well as choledocholithiasis with dilation of the CBD 0.9 cm dilation of the CBD ERCP in a.m. gastroenterology consult # acute cholecystitis evidence of acute cholecystitis on CT abdomen but clinically no surgical signs treat with IV antibiotics follow cultures general surgery suggested outpatient follow up for elective CCY # acute transaminitis secondary to above IV fluids follow CMP # hypertension resume antihypertensives DVT prophylaxis: SCDs given patient's need for further evaluation by GI as well as antibiotics for acute pancreatitis and cholecystitis patient will require overnight inpatient hospital stay for further management and monitoring Time Spent With Patient Time: Total time managing care of this patient today ____ minutes. Quality Stroke Does the patient have a stroke diagnosis?: No VTE Prior VTE?: No VTE Risk Level:: Medical - moderate - high VTE Device Contraindication: N/A - Device Ordered VTE Drug Contraindication: Treatment Not Indicated
--- NOTE | 2023-01-12 15:33 | HO.ANESPROP2 ---
HPI - Anesthesia Eval Consult details Narrative[facility] Active Problems Active Problems: All Active Problems (Updated 01/12/23 @ 00:47 by Chato Stahl MD) Epigastric abdominal pain (Acute) Dilated cbd, acquired (Acute) Transaminitis (Acute) Choledocholithiasis (Acute) Acute pancreatitis (Acute) Acute cholecystitis (Acute) Hypokalemia (Acute) Acute colitis (Acute) Diverticulitis (Acute) Past Medical History Medical History (Updated 01/12/23 @ 00:47 by Chato Stahl MD) Hyperlipidemia Hypertension Family History Family History Other No family history of coronary artery disease Family history of problems with anesthesia: No Surgical History Surgical History (Updated 01/12/23 @ 10:01 by Alem Rivas PA-C) H/O: hysterectomy History of rotator cuff surgery History of Problems with Anesthesia: No Social History Social History Household Members: Spouse Housing: House Do you presently have visiting nurse or other home services: No Alcohol intake: never Patient Tobacco Use Status: Former Tobacco user Quit Date: 40+ years Advance Directives Date on File: 01/12/23 service: No Current occupational status: retired [employer] Allergies Allergy/AdvReac Type Severity Reaction Status Date / Time No Known Allergies Allergy Verified 01/11/23 19:49 Active Medications: Current Medications Acetaminophen (Acetaminophen 325 Mg Tablet) 650 mg PO Q6H PRN PRN Reason: Pain, Mild (Pain Scale 1-3) Ceftriaxone Sodium 1 gm/ (Sodium Chloride) 50 mls @ 100 mls/hr IV Q24H [facility] Last Infusion: 01/12/23 00:40 Dose: Infused Metronidazole (Flagyl) 500 mg in 100 mls @ 100 mls/hr IV Q8H [facility] Last Infusion: 01/12/23 10:01 Dose: Infused Lactated Ringer's (Lr) 1,000 mls @ 250 mls/hr IVCONT .Q4H [facility] Last Admin: 01/12/23 13:36 Dose: 250 mls/hr Morphine Sulfate (Morphine Sulfate 4 Mg/Ml Cartridge) 4 mg IVPUSH Q4H PRN; Protocol PRN Reason: Pain, Severe (Pain Scale 7-10) Ondansetron HCl (Ondansetron Hcl 4 Mg/2 Ml Vial) 4 mg IVPUSH Q8H PRN PRN Reason: Nausea and Vomiting Sodium Chloride (0.9 % Sodium Chloride Flush 3 Ml Syringe) 3 ml IVFLUSH QSHIFT [facility] Last Admin: 01/12/23 07:38 Dose: Not Given Home Medications Medication Instructions Recorded Confirmed Last Taken Type atenolol 50 mg tablet 1 tab PO DAILY 07/26/22 01/12/23 01/11/23 History fluticasone propionate 50 1 spray intranasal DAILY 07/26/22 01/12/23 01/11/23 History mcg/actuation nasal spray,suspension lisinopril 40 mg tablet 1 tab PO DAILY 07/26/22 01/12/23 01/11/23 History magnesium oxide 400 mg (241.3 mg 1 tab PO BEDTIME 07/26/22 01/12/23 3 Days Ago History magnesium) tablet ~01/09/23 omeprazole 20 mg capsule,delayed 1 cap PO SUTUTH 07/26/22 01/12/23 01/11/23 History release Exam Exam Date and Time: January 12, 2023 1533 Height,Weight and Vital Signs: Height 5 ft 2.5 in Weight 74.389 kg Last Vital Signs Temp 97.7 F 01/12/23 14:40 Pulse 59 01/12/23 14:40 Resp 18 01/12/23 14:40 BP 134/68 01/12/23 14:40 Pulse Ox 99 01/12/23 14:40 O2 Del Method Room Air 01/12/23 14:40 Pertinent Lab Results Pertinent Lab Results: Laboratory Tests 01/11/23 01/11/23 01/11/23 19:58 19:58 20:54 WBC 10.2 RBC 4.58 D Hgb 13.6 Hct 39.8 MCV 86.9 MCH 29.7 MCHC 34.2 RDW 13.2 Plt Count 300 D MPV 9.0 L Immature Gran % (Auto) 0.3 Neut % (Auto) 84.5 H Lymph % (Auto) 6.4 L [place] % (Auto) 8.6 Eos % (Auto) 0.1 Baso % (Auto) 0.1 Lymph # (Auto) 0.7 L [place] # (Auto) 0.9 Eos # (Auto) 0.0 Baso # (Auto) 0.0 Abs Immat Gran (auto) 0.03 Absolute Neuts (auto) 8.6 H Absolute Nucleated RBC 0.000 Nucleated RBC % (auto) 0.0 PT INR Sodium 135 Potassium 4.2 D Chloride 101 Carbon Dioxide 22 Anion Gap 16 BUN 12 Creatinine 1.02 Estim Creat Clear Calc 46.3 Estimated GFR 53 Random Glucose 124 H Lactic Acid Calcium 10.3 H D Magnesium 1.1 L* Total Bilirubin 5.0 H Direct Bilirubin AST 263 H ALT 282 H Alkaline Phosphatase 580 H Total Protein 6.5 Albumin 4.2 Lipase 234 H Urine Color Dark Yellow Urine Appearance Clear Urine pH 6.0 Ur Specific [place] 1.015 Urine Protein Negative Urine Glucose (UA) Negative Urine Ketones Trace Urine Blood Negative Urine Nitrite Negative Ur Leukocyte Esterase Moderate (2+) H Urine RBC 0-2 Urine WBC 0-5 Ur Squamous Epith Cells 0-2 Urine Bacteria None Seen Hyaline Casts 0-2 01/11/23 01/12/23 01/12/23 21:55 05:56 05:56 WBC 11.1 H RBC 4.12 L Hgb 12.3 Hct 36.7 L MCV 89.1 MCH 29.9 MCHC 33.5 RDW 13.6 Plt Count 266 MPV 9.2 L Immature Gran % (Auto) 0.4 Neut % (Auto) 76.3 H Lymph % (Auto) 11.8 L [place] % (Auto) 11.3 H Eos % (Auto) 0.0 Baso % (Auto) 0.2 Lymph # (Auto) 1.3 [place] # (Auto) 1.3 H Eos # (Auto) 0.0 Baso # (Auto) 0.0 Abs Immat Gran (auto) 0.05 H Absolute Neuts (auto) 8.5 H Absolute Nucleated RBC 0.000 Nucleated RBC % (auto) 0.0 PT INR Sodium 136 Potassium 4.8 Chloride 103 Carbon Dioxide 22 Anion Gap 16 BUN 11 Creatinine 0.99 Estim Creat Clear Calc 47.8 Estimated GFR 55 Random Glucose 96 Lactic Acid 0.7 Calcium 9.5 D Magnesium 1.9 Total Bilirubin 5.0 H Direct Bilirubin 3.4 H AST 180 H ALT 236 H Alkaline Phosphatase 473 H Total Protein 5.3 L Albumin 3.4 L Lipase 33 Urine Color Urine Appearance Urine pH Ur Specific [place] Urine Protein Urine Glucose (UA) Urine Ketones Urine Blood Urine Nitrite Ur Leukocyte Esterase Urine RBC Urine WBC Ur Squamous Epith Cells Urine Bacteria Hyaline Casts 01/12/23 05:56 WBC RBC Hgb Hct MCV MCH MCHC RDW Plt Count MPV Immature Gran % (Auto) Neut % (Auto) Lymph % (Auto) [place] % (Auto) Eos % (Auto) Baso % (Auto) Lymph # (Auto) [place] # (Auto) Eos # (Auto) Baso # (Auto) Abs Immat Gran (auto) Absolute Neuts (auto) Absolute Nucleated RBC Nucleated RBC % (auto) PT 10.8 INR 0.9 Sodium Potassium Chloride Carbon Dioxide Anion Gap BUN Creatinine Estim Creat Clear Calc Estimated GFR Random Glucose Lactic Acid Calcium Magnesium Total Bilirubin Direct Bilirubin AST ALT Alkaline Phosphatase Total Protein Albumin Lipase Urine Color Urine Appearance Urine pH Ur Specific [place] Urine Protein Urine Glucose (UA) Urine Ketones Urine Blood Urine Nitrite Ur Leukocyte Esterase Urine RBC Urine WBC Ur Squamous Epith Cells Urine Bacteria Hyaline Casts Airway Mallampati Class: III TM Dist: <=3cm Loose/Missing/Broken Teeth: Yes, Upper and Lower Heart: rrr Lungs: cta Other: missing upper back molars bilateral and left lower molar missing. cap on right lower Assessment and Plan Assessment Anesthesia Assessment: Anesthesia Plan Discussed and Chart Reviewed Final Anesthetic Review Family History of Problems with Anesthesia: No History of Problems with Anesthesia: No ASA Class: II and III Final Preanesthetic Review: No Changes in Pt Med Stat, Meds/Allgs Chart Reviewed, Consent Obtained/Reviewed and Anes Risks/Benef Reviewed Patient Risk: Low Procedure Risk: Intermediate Anesthetic Plan Anesthetic Plan: GA Disposition: Standard PACU
--- NOTE | 2023-01-12 18:04 | PM.OP ---
Brief Operative Note Date of Service: 01/12/23 Pre-op diagnosis: Obstructive jaundice Post-op diagnosis: other (Choledocholithiasis, R/O Ampullary tumor) Procedure: ERCP with sphincterotomy, stone removal, and biopsies Surgeon: Duane Stahl Anesthesia: GETA Was an Gear Generator Set Up Operator used for this Procedure?: No Estimated blood loss (mL): 2.0 Pathology: other (A. Major Papilla) Condition: stable Disposition: PACU
--- NOTE | 2023-01-12 18:09 | PM.EVENT ---
Event Note Date of Service: 01/12/23 Event Note: ERCP-Full note dictated 1. Bulging major papilla, but no mass nor ulceration. No bile noted. 2. After a precut sphincterotomy was done I obtained selective cholangiograms which revealed a dilated extrahepatic bile duct with an apparent filling defect in the distal portion. Intrahepatic ducts appeared WNL. 3. The sphincterotomy was completed resulting in excellent flow of bile and a lot of purulence 4. The duct was swept with a 12 mm balloon with extraction of a single approx 12mm brown stone. F/U cholangiograms revealed good decompression of the bile duct and excellent drainage of dye(and purulence).No further stones/filling defects were visualized. 5. The ampullary tissue appeared quite firm and enlarged. I obtained 2 biopsies. There was no significant bleeding. 6. The pancreas was not injected nor cannulated. 7. Large hiatal hernia with the EG Junction noted at 30cm. Imp: Choledocholithiasis, cholangitis, R/O ampullary neoplasm, Hiatal hernia Rec: Continue IV antibiotics, NPO except ice and sips, F/U labs in AM, po PPI. Check blood cultures. Advance diet over weekend if stable. Check path next week. If biopsies are negative for neoplasm then will need to consider CCY, although imaging is negative for gallstones. If suspicion of ampullary neoplasm remains I will arrange for an Endoscopic U/S. Avoid all aspirin, NSAIDs, Lovenox, and other blood thinners x 1 week. D/W patient and . Dr. Hall is on the weekend if problems or questions. Thanks Time Spent With Patient Time: Total time managing care of this patient today ____ minutes.
[2023-01-12] MEDS: Omeprazole 20 MG CAPSULE.DR PO (19:29)
[2023-01-12] MEDS: Omeprazole 40 MG CAPSULE.DR PO (23:52)
[2023-01-13] MEDS: metroNIDAZOLE/NS 500 MG/100 ML PIGGYBACK 100 MG IV ×4 (00:18→23:37)
--- NOTE | 2023-01-13 02:44 | OP_ITS ---
DATE OF SERVICE: 01/12/2023 SURGEON: Duane Stahl MD INDICATIONS: The patient presents for evaluation of obstructive jaundice. Full consent was obtained from her for this, including risks of bleeding, perforation, cholangitis, and pancreatitis. PREOPERATIVE DIAGNOSIS: POSTOPERATIVE DIAGNOSIS: PROCEDURE PERFORMED: ERCP with sphincterotomy, common bile duct stone extraction, and biopsies. ESTIMATED BLOOD LOSS: COMPLICATIONS: ANESTHESIA: General anesthesia and glucagon 0.5 mg IV x1 dose. ASSISTANTS: SPECIMENS: PREOPERATIVE DIAGNOSES: Obstructive jaundice and choledocholithiasis. POSTOPERATIVE DIAGNOSES: Obstructive jaundice and choledocholithiasis, rule out ampullary neoplasm, and hiatal hernia. DESCRIPTION OF PROCEDURE: The patient was placed in the semi-prone position. The Olympus WizMeta video duodenoscope was passed in the posterior oropharynx and upper esophagus. The scope entered into the stomach. There was a large hiatal hernia with the gastroesophageal junction noted at 30 cm. The scope was advanced to pylorus and the duodenum was cannulated to the descending portion. The major papilla was quite bulging in appearance with a downward orientation. There was no mass or ulceration. There was no flow of bile noted at that time. I was only able to maintain the scope position in a long scope position. Initial attempts at cannulating the bile duct with a [employer] triple lumen sphincterotome over the straight guidewire was unsuccessful. Therefore, given the appearance of the papilla and the presumed obstruction in relation to a stone, I did perform an approximately 6 to 8 mm precut sphincterotomy. There was no immediate complication. Once that was done, I obtained easy cannulation of the bile duct over the guidewire. Selective cholangiograms revealed a mildly dilated extrahepatic bile duct and normal intrahepatic bile ducts. There did appear to be a definitive filling defect in the distal portion of the extrahepatic bile duct. I did extend the sphincterotomy another 5-6 mm, and at that point, there was excellent drainage of bile, dye, and purulence into the duodenum. I then was able to advance a 12 mm balloon catheter into the bile duct over the guidewire easily. Selective cholangiograms again revealed the filling defect in the distal duct and this was pulled into the duodenum with the 12 mm balloon inflated. The balloon itself pulled easily into the duodenum as well. Of note, I did not see the stone come into the duodenum initially. Followup cholangiograms and sweeping of the bile duct with the 12 mm balloon, as well as with a 4 wire basket, did not reveal any further stones. However, there was excellent drainage of bile, dye, and purulence noted coming into the duodenum with excellent decompression of the extrahepatic bile duct seen fluoroscopically. At that point, still not having seen the stone, I was concerned as to whether or not the enlarged ampulla could be source of the obstruction, and questioned a possible neoplastic process. It was difficult to tell after sphincterotomy obviously, but the tissue did appear to be quite firm in that area of the ampulla. Therefore, 2 biopsies were obtained. There was no significant bleeding from the biopsy sites. At that point there was excellent drainage and I did not think she needed a biliary stent, nor any other treatment. However, as the scope was being pulled from the duodenum into the stomach, I then visualized the single stone that had been withdrawn at the initial phase of the procedure. This was approximately 12 mm and brown. The scope was then withdrawn to the stomach which appeared grossly normal, but there was limited visualization. The scope was withdrawn back in the esophagus and then out of the patient. Of note, the pancreas was not injected nor cannulated with dye, wires, nor catheter. The patient tolerated the procedure well and was returned to the recovery area in stable condition. IMPRESSION: 1. Choledocholithiasis. 2. Hiatal hernia. 3. Rule out ampullary neoplasm. PLAN: The patient will be observed on IV antibiotics. I would continue those for 48 hours at least given the finding of the purulence and cholangitis. I think her diet can be advanced by tomorrow through the weekend. She will have follow up laboratories tomorrow. At this point her gallbladder imaging did not show stones. Therefore, we might want to hold off on the gallbladder surgery until we have the biopsies back to make sure that the ampulla is not harboring any type of neoplasm that might have contributed to her obstruction with a resultant stone formation. Without any stones in the gallbladder it is rather unusual to have a primary single common duct stone. She should not use any aspirin, NSAIDs, nor any other blood thinners for at least a week. This has all been discussed with the patient and her in detail. They were comfortable with this plan. MD MELANY Atkinson/OCTAVIA / [id number] [facility]
[2023-01-13 03:19] VITALS: BP 115/57; PULSE 59; RESP 16; TEMP 36; O2SAT 97
[2023-01-13] MEDS: Omeprazole 20 MG CAPSULE.DR PO (05:52)
[2023-01-13] MEDS: Lactated Ringers 1,000 ML 250 ML IVCONT (05:52)
[2023-01-13 06:35] LABS: Hematocrit 35.9 % (37.0-47.0); Hemoglobin 11.8 g/dl (12.0-16.0); Mean Corpuscular HGB Conc 32.9 g/dl (31.0-35.0); Mean Corpuscular Hemoglobin 29.4 pg (27.0-33.0); Mean Corpuscular Volume 89.5 fL (80.0-98.0); Mean Platelet Volume 9.4 fL (9.4-12.3); Platelet Count 268 X10*3/uL (160-400); Red Blood Count 4.01 X10*6/uL (4.20-5.50); Red Cell Distribution Width 13.7 % (11.0-16.0); White Blood Count 7.1 X10*3/uL (4.8-10.8)
[2023-01-13 06:51] LABS: Anion Gap 17 (12-20); Blood Urea Nitrogen 17 mg/dL (9-16); Calcium 8.9 mg/dL (8.4-10.2); Carbon Dioxide 19 mmol/L (22-29); Chloride 106 mmol/L (96-108); Estimated Glomerular Filt Rate > 60; Glucose Random 89 mg/dL (60-115); Potassium 4.5 mmol/L (3.3-5.1); Sodium 137 mmol/L (135-145)
[2023-01-13 06:52] LABS: Alanine Aminotransferase 155 U/L (0-31); Alkaline Phosphatase 434 U/L (39-117); Aspartate Amino Transferase 78 U/L (5-31); Bilirubin Direct 2.5 mg/dL (0.0-0.5); Total Protein 4.8 g/dL (6.5-8.0)
[2023-01-13 07:59] VITALS: BP 137/63; PULSE 65; RESP 16; TEMP 36.1; O2SAT 98
--- NOTE | 2023-01-13 09:57 | HO.PM.IMPN ---
Subjective Subjective Date of Service: 01/13/23 Interval History: Seen and evaluated less pain, improving LFT post ERCP no fever or chills no other overnight events Review of Systems Review of Systems: Yes all other systems are reviewed and are negative Physical Exam Vital Signs: Vital Signs: Last Vital Signs Temp 96.9 F 01/13/23 07:59 Pulse 65 01/13/23 07:59 Resp 16 01/13/23 07:59 BP 137/63 01/13/23 07:59 Pulse Ox 98 01/13/23 07:59 O2 Del Method Room Air 01/13/23 07:59 O2 Flow Rate 2 01/12/23 18:29 BMI result Body Mass Index 29.5 Const: Other: Constitutional : Awake, interactive, not in distress Neck : Normal inspection, Supple Cardiovascular : RRR, no JVP, no lower extremity edema Respiratory : good bilateral air entry, no crackles, wheezes or rhonchi Gastrointestinal: soft, lax, Normal bowel sounds, no significant RUQ and epigastric tenderness, no surgical signs Skin : Warm, Dry Neurological : Alert & oriented x3, No focal deficit Objective Data Active Medications Acetaminophen (Acetaminophen 325 Mg Tablet) 650 mg PO Q6H PRN PRN Reason: Pain, Mild (Pain Scale 1-3) Calcium Carbonate (Calcium Carbonate 750 Mg Tab.Chew) 750 mg PO Q4H PRN PRN Reason: heartburn Fentanyl (Fentanyl Citrate/Pf 100 Mcg/2 Ml Vial) 25 mcg IVPUSH Q5M PRN; Protocol PRN Reason: Pain, Moderate(Pain Scale 4-6) Ceftriaxone Sodium 1 gm/ (Sodium Chloride) 50 mls @ 100 mls/hr IV Q24H [facility] Last Infusion: 01/12/23 23:36 Dose: 0 mls/hr Documented By: KATJA Metronidazole (Flagyl) 500 mg in 100 mls @ 100 mls/hr IV Q8H [facility] Last Infusion: 01/13/23 01:38 Dose: 0 mls/hr Documented By: KATJA Lactated Ringer's (Lr) 1,000 mls @ 125 mls/hr IVCONT .Q8H [facility] Last Admin: 01/13/23 06:06 Dose: Not Given Documented By: KATJA Non-Admin Reason: IV Running Morphine Sulfate (Morphine Sulfate 4 Mg/Ml Cartridge) 4 mg IVPUSH Q4H PRN; Protocol PRN Reason: Pain, Severe (Pain Scale 7-10) Omeprazole (Omeprazole 20 Mg Capsule.Dr) 20 mg PO DAILY@0630 [facility] Last Admin: 01/13/23 05:52 Dose: 20 mg Documented By: KATJA Ondansetron HCl (Ondansetron Hcl 4 Mg/2 Ml Vial) 4 mg IVPUSH Q8H PRN PRN Reason: Nausea and Vomiting Ondansetron HCl (Ondansetron Hcl 4 Mg/2 Ml Vial) 4 mg IVPUSH ONCE PRN PRN Reason: Nausea and Vomiting Sodium Chloride (0.9 % Sodium Chloride Flush 3 Ml Syringe) 3 ml IVFLUSH QSHIFT [facility] Last Admin: 01/13/23 01:38 Dose: Not Given Documented By: KATJA Non-Admin Reason: IV Running Labs 01/13/23 05:56 01/13/23 05:56 Labs: Laboratory Results - last 24 hr 01/13/23 01/13/23 01/13/23 05:56 05:56 05:56 MCV 89.5 MCH 29.4 MCHC 32.9 RDW 13.7 Plt Count 268 MPV 9.4 Absolute Nucleated RBC 0.000 Nucleated RBC % (auto) 0.0 Anion Gap 17 Estim Creat Clear Calc 55.0 Estimated GFR > 60 Random Glucose 89 Calcium 8.9 D Total Bilirubin 4.0 H Direct Bilirubin 2.5 H AST 78 H ALT 155 H Alkaline Phosphatase 434 H Total Protein 4.8 L Albumin 3.0 L Microbiology Microbiology Results: Microbiology 01/11/23 21:55 Blood Culture - Preliminary Blood - Venous No growth after 24 hours. 01/11/23 21:55 Blood Culture - Preliminary Blood - Venous No growth after 24 hours. Assessment and Plan (1) Transaminitis: Status: Acute (2) Acute pancreatitis: Status: Acute (3) Acute cholangitis due to calculus of bile duct with obstruction: Status: Acute Plan 72-year-old female with past medical history of HTN, HLD presents to the hospital with abdominal pain found to have the following # acute pancreatitis likely gallbladder stones pancreatitis IV fluids decrease pain control advance diet as tolerated # choledocholithiasis has evidence of cholecystitis as well as choledocholithiasis with dilation of the CBD 0.9 cm dilation of the CBD ERCP showed GI input appreciated, wait pathology for possible ampulla CA, hold ASA for 1 week, advance diet as tolerated Surgery input appreciated, CCY as outpatient start clear liquids # Acute cholangitis due to calculus of bile duct with obstruction improving pending final cultures Continue IV antibiotics # acute transaminitis secondary to above improving follow CMP # hypertension resume antihypertensives DVT prophylaxis: SCDs with acute pancreatitis, inability to tolerate diet will require overnight inpatient hospital stay for further management and monitoring Time Spent With Patient Time: Total time managing care of this patient today ____ minutes. Quality Stroke Does the patient have a stroke diagnosis?: No VTE Prior VTE?: No VTE Risk Level:: Medical - moderate - high VTE Device Contraindication: N/A - Device Ordered VTE Drug Contraindication: Treatment Not Indicated
[2023-01-13] MEDS: Lactated Ringers 1,000 ML 125 ML IVCONT ×2 (10:23→23:07)
[2023-01-13] MEDS: 0.9 % Sodium Chloride Flush 3 ML SYRINGE IVFLUSH ×2 (10:24→23:37)
--- NOTE | 2023-01-13 11:06 | PM.PNGS ---
Subjective Subjective Date of Service: 01/13/23 Interval history: feels well denies abdominal pain ERCP done yesterday - 12 mm CBD stone retrieved Physical Exam Vital Signs: Vital Signs: Last Vital Signs Temp 96.9 F 01/13/23 07:59 Pulse 65 01/13/23 07:59 Resp 16 01/13/23 07:59 BP 137/63 01/13/23 07:59 Pulse Ox 98 01/13/23 07:59 O2 Del Method Room Air 01/13/23 07:59 O2 Flow Rate 2 01/12/23 18:29 BMI result Body Mass Index 29.5 Const: General: comfortable and no acute distress Eyes: Other: anicteric sclerae Resp: Effort & Inspection: normal respiratory effort GI: Palpation (GI): Soft to palpation, not firm, nontender and no guarding Objective Data Active Medications Acetaminophen (Acetaminophen 325 Mg Tablet) 650 mg PO Q6H PRN PRN Reason: Pain, Mild (Pain Scale 1-3) Calcium Carbonate (Calcium Carbonate 750 Mg Tab.Chew) 750 mg PO Q4H PRN PRN Reason: heartburn Fentanyl (Fentanyl Citrate/Pf 100 Mcg/2 Ml Vial) 25 mcg IVPUSH Q5M PRN; Protocol PRN Reason: Pain, Moderate(Pain Scale 4-6) Ceftriaxone Sodium 1 gm/ (Sodium Chloride) 50 mls @ 100 mls/hr IV Q24H [facility] Last Infusion: 01/12/23 23:36 Dose: 0 mls/hr Documented By: KATJA Metronidazole (Flagyl) 500 mg in 100 mls @ 100 mls/hr IV Q8H [facility] Last Admin: 01/13/23 10:20 Dose: 100 mls/hr Documented By: BILL Lactated Ringer's (Lr) 1,000 mls @ 125 mls/hr IVCONT .Q8H [facility] Last Admin: 01/13/23 10:23 Dose: 125 mls/hr Documented By: BILL Morphine Sulfate (Morphine Sulfate 4 Mg/Ml Cartridge) 4 mg IVPUSH Q4H PRN; Protocol PRN Reason: Pain, Severe (Pain Scale 7-10) Omeprazole (Omeprazole 20 Mg Capsule.Dr) 20 mg PO DAILY@0630 [facility] Last Admin: 01/13/23 05:52 Dose: 20 mg Documented By: KATJA Ondansetron HCl (Ondansetron Hcl 4 Mg/2 Ml Vial) 4 mg IVPUSH Q8H PRN PRN Reason: Nausea and Vomiting Ondansetron HCl (Ondansetron Hcl 4 Mg/2 Ml Vial) 4 mg IVPUSH ONCE PRN PRN Reason: Nausea and Vomiting Sodium Chloride (0.9 % Sodium Chloride Flush 3 Ml Syringe) [facility] Admin: 01/13/23 10:24 Dose: 3 ml Documented By: BILL Labs 01/13/23 05:56 01/13/23 05:56 Labs: Laboratory Results - last 24 hr 01/13/23 01/13/23 01/13/23 05:56 05:56 05:56 MCV 89.5 MCH 29.4 MCHC 32.9 RDW 13.7 Plt Count 268 MPV 9.4 Absolute Nucleated RBC 0.000 Nucleated RBC % (auto) 0.0 Anion Gap 17 Estim Creat Clear Calc 55.0 Estimated GFR > 60 Random Glucose 89 Calcium 8.9 D Total Bilirubin 4.0 H Direct Bilirubin 2.5 H AST 78 H ALT 155 H Alkaline Phosphatase 434 H Total Protein 4.8 L Albumin 3.0 L Microbiology Microbiology Results: Microbiology 01/11/23 21:55 Blood Culture - Preliminary Blood - Venous No growth after 24 hours. 01/11/23 21:55 Blood Culture - Preliminary Blood - Venous No growth after 24 hours. Procedures Date of Service Date of Service: 01/13/23 Progress Note: A&P Assessment and plan (1) Common bile duct (CBD) obstruction: Status: Acute Assessment and Plan: status post ERCP and stone retrieval imaging studies reviewed - no residual gallbladder stone is seen I therefore had a long discussion with her about option of cholecystectomy in the absence of residual gallbladder stone, uncertain as to the benefit of proceeding with cholecystectomy at this time she says that does not want to proceed with surgery for now follow LFTs okay to DC home tomorrow if LFTs continued to trend down Time Spent With Patient Time: Total time managing care of this patient today ____ minutes. Quality Stroke Does the patient have a stroke diagnosis?: No VTE Prior VTE?: No VTE Risk Level:: Medical - moderate - high VTE Device Contraindication: N/A - Device Ordered VTE Drug Contraindication: Treatment Not Indicated
--- NOTE | 2023-01-13 14:45 | HO.POSTANES ---
Post Anesthesia Evaluation Post Anesthesia Evaluation Vital Signs: Vital Signs Temp Pulse Resp BP Pulse Ox O2 Del Method 01/13/23 07:59 96.9 F 65 16 137/63 98 Room Air 01/13/23 03:19 96.8 F 59 16 115/57 L 97 Room Air Anesthesia: General Endotracheal-GETA Mental Status: Awake Pain Control: Satisfactory Nausea/Vomiting: None Hydration: Adequate Anesthesia-Related Issues: No Anes. Related Issues
[2023-01-13 15:31] VITALS: BP 120/67; PULSE 90; RESP 18; TEMP 36.6; O2SAT 98
[2023-01-13 15:32] VITALS: O2SAT 666
[2023-01-13] MEDS: Throat Lozenge, Medicated LOZENGE 1 LOZENGE MUCOUS MEM ×2 (16:15→20:22)
[2023-01-13 19:47] VITALS: BP 123/78; PULSE 82; RESP 16; TEMP 36.3; O2SAT 99
[2023-01-13] MEDS: cefTRIAXone sodium 1 GM in 0.9 % Sodium Chloride 50 ML IV (23:07)
[2023-01-14 03:34] VITALS: BP 144/79; PULSE 68; RESP 16; TEMP 36.3; O2SAT 98
[2023-01-14] MEDS: Throat Lozenge, Medicated LOZENGE 1 LOZENGE MUCOUS MEM ×3 (03:46→22:53)
[2023-01-14 06:56] LABS: Alanine Aminotransferase 115 U/L (0-31); Albumin Level 3.3 g/dL (3.5-5.0); Alkaline Phosphatase 385 U/L (39-117); Anion Gap 13 (12-20); Aspartate Amino Transferase 41 U/L (5-31); Bilirubin Direct 1.1 mg/dL (0.0-0.5); Bilirubin Total 2.4 mg/dL (0.0-1.0); Blood Urea Nitrogen 13 mg/dL (9-16); Calcium 9.3 mg/dL (8.4-10.2); Carbon Dioxide 26 mmol/L (22-29); Chloride 107 mmol/L (96-108); Creatinine Clr Calc Pharmacy 59.1; Estimated Glomerular Filt Rate > 60; Glucose Random 96 mg/dL (60-115); Sodium 142 mmol/L (135-145); Total Protein 5.2 g/dL (6.5-8.0)
[2023-01-14 08:00] VITALS: BP 159/80; PULSE 76; RESP 16; TEMP 36.4; O2SAT 95
[2023-01-14] MEDS: metroNIDAZOLE/NS 500 MG/100 ML PIGGYBACK 100 MG IV ×3 (08:27→22:49)
[2023-01-14] MEDS: 0.9 % Sodium Chloride Flush 3 ML SYRINGE IVFLUSH ×2 (08:27→22:48)
--- NOTE | 2023-01-14 09:57 | PM.PNGS ---
Subjective Subjective Date of Service: 01/14/23 Interval history: feels well still on full liquids says she is tolerating this Physical Exam Vital Signs: Vital Signs: Last Vital Signs Temp 97.6 F 01/14/23 08:00 Pulse 76 01/14/23 08:00 Resp 16 01/14/23 08:00 BP 159/80 H 01/14/23 08:00 Pulse Ox 95 01/14/23 08:00 O2 Del Method Room Air 01/14/23 08:00 O2 Flow Rate 2 01/12/23 18:29 Oxygen Flow Rate 66,666 01/13/23 15:32 BMI result Body Mass Index 29.5 Const: General: comfortable and no acute distress Resp: Effort & Inspection: normal respiratory effort Cardio: Rate: regular rate GI: Palpation (GI): Soft to palpation, not firm, nontender and no guarding Objective Data Active Medications Acetaminophen (Acetaminophen 325 Mg Tablet) 650 mg PO Q6H PRN PRN Reason: Pain, Mild (Pain Scale 1-3) Benzocaine (Throat Lozenge, Medicated Lozenge) 1 lozenge MUCOUS MEM Q2H PRN PRN Reason: Sore Throat Last Admin: 01/14/23 08:53 Dose: 1 lozenge Documented By: BILL Calcium Carbonate (Calcium Carbonate 750 Mg Tab.Chew) 750 mg PO Q4H PRN PRN Reason: heartburn Fentanyl (Fentanyl Citrate/Pf 100 Mcg/2 Ml Vial) 25 mcg IVPUSH Q5M PRN; Protocol PRN Reason: Pain, Moderate(Pain Scale 4-6) Ceftriaxone Sodium 1 gm/ (Sodium Chloride) 50 mls @ 100 mls/hr IV Q24H [facility] Last Infusion: 01/13/23 23:37 Dose: 0 mls/hr Documented By: JAILENE Metronidazole (Flagyl) 500 mg in 100 mls @ 100 mls/hr IV Q8H [facility] Last Infusion: 01/14/23 09:40 Dose: 0 mls/hr Documented By: BILL Morphine Sulfate (Morphine Sulfate 4 Mg/Ml Cartridge) 4 mg IVPUSH Q4H PRN; Protocol PRN Reason: Pain, Severe (Pain Scale 7-10) Omeprazole (Omeprazole 20 Mg Capsule.Dr) 20 mg PO BID@0630,1630 [facility] Ondansetron HCl (Ondansetron Hcl 4 Mg/2 Ml Vial) 4 mg IVPUSH Q8H PRN PRN Reason: Nausea and Vomiting Ondansetron HCl (Ondansetron Hcl 4 Mg/2 Ml Vial) 4 mg IVPUSH ONCE PRN PRN Reason: Nausea and Vomiting Sodium Chloride (0.9 % Sodium Chloride Flush 3 Ml Syringe) [facility] Last Admin: 01/14/23 08:27 Dose: 3 ml Documented By: BILL Labs 01/13/23 05:56 01/14/23 05:47 Labs: Laboratory Results - last 24 hr 01/14/23 01/14/23 05:47 05:47 Anion Gap 13 Estim Creat Clear Calc 59.1 Estimated GFR > 60 Random Glucose 96 Calcium 9.3 Total Bilirubin 2.4 H Cancelled Direct Bilirubin 1.1 H Cancelled AST 41 H Cancelled ALT 115 H Cancelled Alkaline Phosphatase 385 H Cancelled Total Protein 5.2 L Cancelled Albumin 3.3 L Cancelled Microbiology Microbiology Results: Microbiology 01/11/23 21:55 Blood Culture - Preliminary Blood - Venous No growth after 48 hours. 01/11/23 21:55 Blood Culture - Preliminary Blood - Venous No growth after 48 hours. Procedures Date of Service Date of Service: 01/14/23 Progress Note: A&P Assessment and plan (1) Common bile duct (CBD) obstruction: Status: Acute Assessment and Plan: status post ERCP with stone retrieval bilirubin continues to trend down ultrasound reviewed - does not seem to have any residual gallbladder stones uncertain as to benefit of proceeding with cholecystectomy at this time in view of the absence of residual stones explained this to patient and she does not want to proceed with cholecystectomy for now okay to follow-up in the office doing well Time Spent With Patient Time: Total time managing care of this patient today ____ minutes. Quality Stroke Does the patient have a stroke diagnosis?: No VTE Prior VTE?: No VTE Risk Level:: Medical - moderate - high VTE Device Contraindication: N/A - Device Ordered VTE Drug Contraindication: Treatment Not Indicated
--- NOTE | 2023-01-14 10:44 | P.PNIM_ITS ---
Subjective Subjective Date of Service: 01/14/23 Interval History: Seen and evaluated still complaining of epigastrin and episodes of RUQ pain improving LFT tolerating diet no fever or chills no other overnight events Review of Systems Review of Systems: Yes all other systems are reviewed and are negative Physical Exam Vital Signs: Vital Signs: Last Vital Signs Temp 97.6 F 01/14/23 08:00 Pulse 76 01/14/23 08:00 Resp 16 01/14/23 08:00 BP 159/80 H 01/14/23 08:00 Pulse Ox 95 01/14/23 08:00 O2 Del Method Room Air 01/14/23 08:00 O2 Flow Rate 2 01/12/23 18:29 Oxygen Flow Rate 66,666 01/13/23 15:32 BMI result Body Mass Index 29.5 Const: Other: Constitutional : Awake, interactive, not in distress Neck : Normal inspection, Supple Cardiovascular : RRR, no JVP, no lower extremity edema Respiratory : good bilateral air entry, no crackles, wheezes or rhonchi Gastrointestinal: soft, lax, Normal bowel sounds, no significant RUQ and epigastric tenderness, no surgical signs Skin : Warm, Dry Neurological : Alert & oriented x3, No focal deficit Objective Data Active Medications Acetaminophen (Acetaminophen 325 Mg Tablet) 650 mg PO Q6H PRN PRN Reason: Pain, Mild (Pain Scale 1-3) Benzocaine (Throat Lozenge, Medicated Lozenge) 1 lozenge MUCOUS MEM Q2H PRN PRN Reason: Sore Throat Last Admin: 01/14/23 08:53 Dose: 1 lozenge Documented By: BILL Calcium Carbonate (Calcium Carbonate 750 Mg Tab.Chew) 750 mg PO Q4H PRN PRN Reason: heartburn Fentanyl (Fentanyl Citrate/Pf 100 Mcg/2 Ml Vial) 25 mcg IVPUSH Q5M PRN; Protocol PRN Reason: Pain, Moderate(Pain Scale 4-6) Ceftriaxone Sodium 1 gm/ (Sodium Chloride) 50 mls @ 100 mls/hr IV Q24H [facility] Last Infusion: 01/13/23 23:37 Dose: 0 mls/hr Documented By: JAILENE Metronidazole (Flagyl) 500 mg in 100 mls @ 100 mls/hr IV Q8H [facility] Last Infusion: 05/21/23 09:40 Dose: 0 mls/hr Documented By: BILL Morphine Sulfate (Morphine Sulfate 4 Mg/Ml Cartridge) 4 mg IVPUSH Q4H PRN; Protocol PRN Reason: Pain, Severe (Pain Scale 7-10) Omeprazole (Omeprazole 20 Mg Capsule.Dr) 20 mg PO BID@0630,1630 [facility] Ondansetron HCl (Ondansetron Hcl 4 Mg/2 Ml Vial) 4 mg IVPUSH Q8H PRN PRN Reason: Nausea and Vomiting Ondansetron HCl (Ondansetron Hcl 4 Mg/2 Ml Vial) 4 mg IVPUSH ONCE PRN PRN Reason: Nausea and Vomiting Sodium Chloride (0.9 % Sodium Chloride Flush 3 Ml Syringe) 3 ml IVFLUSH QSHIFT [facility] Last Admin: 01/14/23 08:27 Dose: 3 ml Documented By: BILL Labs 01/13/23 05:56 01/14/23 05:47 Labs: Laboratory Results - last 24 hr 01/14/23 01/14/23 05:47 05:47 Anion Gap 13 Estim Creat Clear Calc 59.1 Estimated GFR > 60 Random Glucose 96 Calcium 9.3 Total Bilirubin 2.4 H Cancelled Direct Bilirubin 1.1 H Cancelled AST 41 H Cancelled ALT 115 H Cancelled Alkaline Phosphatase 385 H Cancelled Total Protein 5.2 L Cancelled Albumin 3.3 L Cancelled Microbiology Microbiology Results: Microbiology 01/11/23 21:55 Blood Culture - Preliminary Blood - Venous No growth after 48 hours. 01/11/23 21:55 Blood Culture - Preliminary Blood - Venous No growth after 48 hours. Assessment and Plan (1) Common bile duct (CBD) obstruction: Status: Acute (2) Acute cholangitis due to calculus of bile duct with obstruction: Status: Acute Plan 72-year-old female with past medical history of HTN, HLD presents to the hospital with abdominal pain found to have the following # acute pancreatitis likely gallbladder stones pancreatitis, improved after ERCP DC IV fluids pain control advance diet as tolerated # choledocholithiasis has evidence of cholecystitis as well as choledocholithiasis with dilation of the CBD 0.9 cm dilation of the CBD ERCP showed 12mm stone that was removed, pus collection?, concern of ampulla mass GI input appreciated, wait pathology for possible ampulla CA, hold ASA or AC for 1 week, advance diet as tolerated Surgery input appreciated, CCY as outpatient # Acute cholangitis due to calculus of bile duct with obstruction improving pending final cultures Continue IV antibiotics # acute transaminitis secondary to above improving follow CMP # hypertension resume antihypertensives DVT prophylaxis: SCDs with acute pancreatitis, inability to tolerate diet will require overnight inpatient hospital stay for further management and monitoring Time Spent With Patient Time: Total time managing care of this patient today ____ minutes. Quality Stroke Does the patient have a stroke diagnosis?: No VTE Prior VTE?: No VTE Risk Level:: Medical - moderate - high VTE Device Contraindication: N/A - Device Ordered VTE Drug Contraindication: Treatment Not Indicated
[2023-01-14 15:00] VITALS: O2SAT 96
[2023-01-14 15:02] VITALS: BP 177/81; PULSE 76; RESP 18; TEMP 36.2; O2SAT 96
[2023-01-14] MEDS: Omeprazole 20 MG CAPSULE.DR PO (15:34)
[2023-01-14] MEDS: lisinopriL 40 MG TABLET PO (15:34)
[2023-01-14] MEDS: atenoloL 50 MG TABLET PO (15:34)
[2023-01-14 19:02] VITALS: BP 145/67; PULSE 61; RESP 16; TEMP 36.5; O2SAT 96
[2023-01-14] MEDS: cefTRIAXone sodium 1 GM in 0.9 % Sodium Chloride 50 ML IV (22:42)
[2023-01-15 04:00] VITALS: BP 161/77; PULSE 73; RESP 18; TEMP 37.3; O2SAT 93
[2023-01-15] MEDS: Omeprazole 20 MG CAPSULE.DR PO (06:18)
[2023-01-15 07:14] LABS: Alanine Aminotransferase 78 U/L (0-31); Alkaline Phosphatase 311 U/L (39-117); Aspartate Amino Transferase 29 U/L (5-31); Bilirubin Direct 0.8 mg/dL (0.0-0.5); Bilirubin Total 1.8 mg/dL (0.0-1.0); Total Protein 4.7 g/dL (6.5-8.0)
[2023-01-15 07:57] VITALS: BP 145/67; PULSE 65; RESP 18; TEMP 36; O2SAT 95
[2023-01-15] MEDS: atenoloL 50 MG TABLET PO (08:15)
[2023-01-15] MEDS: lisinopriL 40 MG TABLET PO (08:15)
[2023-01-15] MEDS: 0.9 % Sodium Chloride Flush 3 ML SYRINGE IVFLUSH (08:15)
[2023-01-15] MEDS: metroNIDAZOLE/NS 500 MG/100 ML PIGGYBACK 100 MG IV (08:15)
--- NOTE | 2023-01-15 08:42 | P.PNGS_ITS ---
Subjective Subjective Date of Service: 01/15/23 Interval history: Feels well this morning. Waiting for solid food. Has been out of bed with out difficulty. Wants to go home. Physical Exam Vital Signs: Vital Signs: Last Vital Signs Temp 96.8 F 01/15/23 07:57 Pulse 65 01/15/23 07:57 Resp 18 01/15/23 07:57 BP 145/67 H 01/15/23 07:57 Pulse Ox 95 01/15/23 07:57 O2 Del Method Room Air 01/15/23 07:57 O2 Flow Rate 2 01/12/23 18:29 Oxygen Flow Rate 66,666 01/13/23 15:32 BMI result Body Mass Index 29.5 Const: General: comfortable, no acute distress and alert Orientation/consciousness: patient oriented x3 Resp: Effort & Inspection: normal respiratory effort GI: Inspection: No distended Palpation (GI): Soft to palpation, nontender, no guarding and not rigid Skin: General skin exam: no rashes or lesions noted Neuro: General: patient oriented x3 Objective Data Active Medications Acetaminophen (Acetaminophen 325 Mg Tablet) 650 mg PO Q6H PRN PRN Reason: Pain, Mild (Pain Scale 1-3) Atenolol (Atenolol 50 Mg Tablet) 50 mg PO DAILY [facility]; Protocol Last Admin: 01/15/23 08:15 Dose: 50 mg Documented By: RAYSHAWN Benzocaine (Throat Lozenge, Medicated Lozenge) 1 lozenge MUCOUS MEM Q2H PRN PRN Reason: Sore Throat Last Admin: 01/14/23 22:53 Dose: 1 lozenge Documented By: ARIS Calcium Carbonate (Calcium Carbonate 750 Mg Tab.Chew) 750 mg PO Q4H PRN PRN Reason: heartburn Fentanyl (Fentanyl Citrate/Pf 100 Mcg/2 Ml Vial) 25 mcg IVPUSH Q5M PRN; Protoc ol PRN Reason: Pain, Moderate(Pain Scale 4-6) Fluticasone Propionate (Fluticasone Propionate Nasal 16 Gm [place]) 1 spray NOSTRIL-B DAILY [facility] Ceftriaxone Sodium 1 gm/ (Sodium Chloride) 50 mls @ 100 mls/hr IV Q24H [facility] Last Infusion: 01/14/23 23:21 Dose: 0 mls/hr Documented By: ARIS Metronidazole (Flagyl) 500 mg in 100 mls @ 100 mls/hr IV Q8H [facility] Last Admin: 01/15/23 08:15 Dose: 100 mls/hr Documented By: RAYSHAWN Lisinopril (Lisinopril 40 Mg Tablet) 40 mg PO DAILY [facility]; Protocol Last Admin: 01/15/23 08:15 Dose: 40 mg Documented By: RAYSHAWN Morphine Sulfate (Morphine Sulfate 4 Mg/Ml Cartridge) 4 mg IVPUSH Q4H PRN; Prot ocol PRN Reason: Pain, Severe (Pain Scale 7-10) Omeprazole (Omeprazole 20 Mg Capsule.) 20 mg PO BID@0630,1630 [facility] Last Admin: 01/15/23 06:18 Dose: 20 mg Documented By: ARIS Ondansetron HCl (Ondansetron Hcl 4 Mg/2 Ml Vial) 4 mg IVPUSH Q8H PRN PRN Reason: Nausea and Vomiting Ondansetron HCl (Ondansetron Hcl 4 Mg/2 Ml Vial) 4 mg IVPUSH ONCE PRN PRN Reason: Nausea and Vomiting Sodium Chloride (0.9 % Sodium Chloride Flush 3 Ml Syringe) 3 ml IVFLUSH QSHIFT [facility] Last Admin: 01/15/23 08:15 Dose: 3 ml Documented By: RAYSHAWN Labs 01/13/23 05:56 01/14/23 05:47 Labs: Laboratory Results - last 24 hr 01/15/23 05:59 Total Bilirubin 1.8 H Direct Bilirubin 0.8 H AST 29 ALT 78 H Alkaline Phosphatase 311 H Total Protein 4.7 L Albumin 3.0 L Procedures Date of Service Date of Service: 01/15/23 Progress Note: A&P Assessment and plan (1) Common bile duct (CBD) obstruction: Status: Acute (2) Acute cholangitis due to calculus of bile duct with obstruction: Status: Acute Plan 72 year old female admitted with CBD stone, cholangitis. If tolerating solid diet, stable fr dc to home today on PO abx. No residual gallstone, can hold off on cholecystectomy during visit. ampullary tissue biopsies pending. Can f/u in office with Dr. Banks in 2 weeks, f/u with GI. Time Spent With Patient Time: Total time managing care of this patient today ____ minutes. Quality Stroke Does the patient have a stroke diagnosis?: No VTE Prior VTE?: No VTE Risk Level:: Medical - moderate - high VTE Device Contraindication: N/A - Device Ordered VTE Drug Contraindication: Treatment Not Indicated
[2023-01-15] MEDS: Throat Lozenge, Medicated LOZENGE 1 LOZENGE MUCOUS MEM (09:04)
[2023-01-15] MEDS: Acetaminophen 325 MG TABLET 650 MG PO (09:04)
[2023-01-15] MEDS: Fluticasone Propionate Nasal 16 GM SPRAY 1 SPRAY NOSTRIL-B (10:11)
--- NOTE | 2023-01-15 13:42 | P.DS_ITS ---
DS: Providers Provider Date of Service: 01/15/23 Date of admission: 01/11/23 22:53 Primary care physician: Evelio Marsh MD Consults: 01/11/23 22:52 Consult to Gastroenterology Routine Consulting Provider: Duane Stahl Reason for consultation: Choledocholithisis Has provider been notified: Yes Consult to General Surgery Routine Consulting Provider: [facility] General Surgeons Reason for consultation: acute georgina Has provider been notified: No DS: Diagnosis Discharge Diagnosis (1) Common bile duct (CBD) obstruction: Status: Acute (2) Acute cholangitis due to calculus of bile duct with obstruction: Status: Acute (3) Dilated cbd, acquired: Status: Acute (4) Transaminitis: Status: Acute (5) Acute pancreatitis: Status: Acute DS: Summary Hospital Course Hospital Course: Admission note HPI ?72-year-old female past medical history of hypertension, HLD presents to the hospital with complaints of abdominal pain in the epigastric area.? Patient reports that her symptoms started since Sunday,? spasm like,intermittent,? 8/10 ,sometimes radiating to the right upper quadrant, associated with 1 episode of vomiting, decreased oral intake, not worsened with oral intake, denies any fever, but had chills. .? No similar episode.? Reports no chest pain, no shortness of breath, no diarrhea, some constipation, no urinary symptoms and no lower extremity edema. no weakness numbness or headache.? On arrival to the ED? vitals are significant fever of 100.5, respiratory rate of 19, heart rate of 118, blood pressure stable Labs are significant for WBC count of 10.2, magnesium level of 1.1, total bilirubin of 5, AST of 263, ALT of 282, alk-phos of 580, lipase of 234 ?CT abdomen as well as ultrasound showed dilated CBD, with concern for possible acute cholecystitis as well as choledocholithiasis Patient started on IV fluids, IV antibiotics and will be admitted for further management Hospital course Patient admitted for evaluation of abdominal pain with evidence of calculus of bile duct with obstruction causing acute?cholangitis and pancreatitis based on blood work and findings on ERCP study which was done by dr Stahl removing 1.2 cm stone with pus. biopsies were taken and still pending. treated with IV fluids and antibiotics with good response as she was able to tolerate diet. seen by surgery team who recommended outpatient follow up to discuss surgical options. blood cultures remained negative.noted to have acute transaminitis which trended down after removing the stone. Follow with dr Stahl for biopsy result Follow with dr Banks for Gallbladder surgery Continue Flagyl and Ceftin as prescribed avoid fatty food and advance your diet as tolerated Time Spent with Patient Time attestation: Total time managing care of this patient today ____ minutes. Discharge coordination time: Greater than 30 minutes Quality: Safe Use of Opioids Does Pt have an Active Cancer Diagnosis on the Problem List?: No Quality: Stroke Does the patient have a stroke diagnosis?: No Physical Exam Vital Signs: Vital Signs: Last Vital Signs Temp 96.8 F 01/15/23 07:57 Pulse 65 01/15/23 07:57 Resp 18 01/15/23 07:57 BP 145/67 H 01/15/23 07:57 Pulse Ox 95 01/15/23 07:57 O2 Del Method Room Air 01/15/23 07:57 O2 Flow Rate 2 01/12/23 18:29 Oxygen Flow Rate 66,666 01/13/23 15:32 BMI result Body Mass Index 29.5 Const: Other: Constitutional : Awake, interactive, not in distress Neck : Normal inspection, Supple Cardiovascular : RRR, no JVP, no lower extremity edema Respiratory : good bilateral air entry, no crackles, wheezes or rhonchi Gastrointestinal: soft, lax, Normal bowel sounds, no tenderness, no surgical signs Skin : Warm, Dry Neurological : Alert & oriented x3, No focal deficit DS: Data Data Completed and Pending Pending studies at discharge: Pending at discharge 01/12/23 17:33 Surgical [PTH] Routine Labs on day of discharge: Laboratory Results - last 24 hr 01/15/23 05:59 Total Bilirubin 1.8 H Direct Bilirubin 0.8 H AST 29 ALT 78 H Alkaline Phosphatase 311 H Total Protein 4.7 L Albumin 3.0 L Preliminary micro results at discharge 01/11/23 21:55 Blood Culture - Preliminary Blood - Venous No growth after 48 hours. 01/11/23 21:55 Blood Culture - Preliminary Blood - Venous No growth after [address] scan - abdomen: Radiologist's impression: ITS Impressions Abdomen/Pelvis CT 01/11/23 20:48 IMPRESSION: 1. Mild mesenteric stranding in the left pelvis, which appears to be more closely associated with a segment of thick-walled small bowel rather than colonic diverticula, suggesting possible enteritis. 2. Mild biliary ductal dilatation. Distal filling defect in the CBD is suspicious for choledocholithiasis. This may be further assessed with ERCP. 3. Subtle stranding adjacent to the gallbladder, for which cholecystitis cannot be excluded. This may be further assessed with ultrasound as clinically warranted. 4. Right portal vein branches are not as well seen currently compared to prior. Patency may be further assessed with Doppler ultrasound. 5. Moderate-sized hiatal hernia. Abdomen Ultrasound 01/11/23 22:08 IMPRESSION: The common bile duct is dilated at 0.9 cm. The distal common bile duct, where soft tissue density filling defect is seen on the CT scan, is obscured by bowel gas. As stated at the time of the CT scan, ERCP would be useful for further evaluation. Discharge Plan Discharge Anticipated Discharge Date/Time: 01/15/23 13:35 Patient Disposition: Home, Self-Care Discharge Diagnosis: Obstructing biliary stone acute pancreatitis Referrals: Evelio Marsh MD [Primary Care Provider] - 1 Week Discharge Medications: New ondansetron 4 mg tablet,disintegrating 4 mg PO Q8H PRN (Reason: nausea and vomiting) Qty: 14 0RF cefuroxime axetil 500 mg tablet 500 mg PO BID Qty: 6 0RF metronidazole 500 mg tablet 500 mg PO Q8H Qty: 9 0RF Continued magnesium oxide 400 mg (241.3 mg magnesium) tablet 1 tab PO BEDTIME omeprazole 20 mg capsule,delayed release(DR/EC) 1 cap PO SUTUTH lisinopril 40 mg tablet 1 tab PO DAILY atenolol 50 mg tablet 1 tab PO DAILY fluticasone propionate 50 mcg/actuation [place],Suspension 1 spray INTRANASAL DAILY Rx Instructions: administer into each nostril Discharge Orders: Discharge Order (Routine); Ordered 01/15/23 Ordered By: Meaghan Szymanski Diet: Advance to usual diet Activity on Discharge: As tolerated Stand Alone Forms: Patient Portal Discharge page Care Plan Goals: Read below Health Concerns: Read below Plan of Treatment: Read below Assessment: You were admitted for evaluation of abdominal pain. found to have elevated liver and pancrease enzymes from an obstructing stone in your biliary tree that was removed by dr Stahl in ERCP procedure. your symptoms improved significantly as you were able to tolerate diet with treatment of fluids and antibiotics. Follow with dr Stahl for biopsy result Follow with dr Banks for Gallbladder surgery Continue Flagyl and Ceftin as prescribed avoid fatty food and advance your diet as tolerated
--- NOTE | 2023-01-15 13:50 | MHC.CM.PN ---
DP: PT HAS BEEN MEDICALLY CLEARED FOR DC HOME, NO SERVICES. WILL TRANSPORT HOME.
== END 2023-01-15 14:18 | disposition home or self-care (01) | DRG 444 ==
LOC: HO.ED 20:13 → HO.EDOVER 23:16 → HO.S3 01-12 17:26
PROVIDERS: Internal Medicine; Physician Assistant; Admitting Provider Internal Medicine; Emergency Provider Internal Medicine; PCP Internal Medicine; Visit Provider Student in an Organized Health Care Education/Training Program
PROC: 0FC98ZZ Extirpation of Matter from Common Bile Duct, Via Natural or Artificial Opening Endoscopic (ICD-10-PCS; CPT 43260; principal; 2023-01-12 15:00)
DX: K80.43 Calculus of bile duct with acute cholecystitis with obstruction (principal); K85.10 Biliary acute pancreatitis without necrosis or infection; K44.9 Diaphragmatic hernia without obstruction or gangrene; E78.5 Hyperlipidemia, unspecified; I10 Essential (primary) hypertension; Z79.51 Long term (current) use of inhaled steroids; Z79.899 Other long term (current) drug therapy
CPT/HCPCS: 36415; 74177; 76705; 80048; 80053; 80076; 81001; 81003; 83605; 83690; 83735; 85025; 85027; 85610; 87040; 88305; 99285; J0696; J1100; J1610; J2270; J2405; J2543; J3010; J3475; Q9967

== ENCOUNTER 2023-01-23 09:15 | Outpatient (REF) | payer MEDICARE, SELFPAY ==
[2023-01-23 11:16] LABS: MANUAL DIFF FLAG NO
[2023-01-23 12:04] LABS: Basophils Percent Auto 0.5 % (0-2); Eosinophils Absolute Auto 0.1 X10*3/uL (0.0-0.4); Eosinophils Percent Auto 1.8 % (0-4); Hematocrit 40.2 % (37.0-47.0); Hemoglobin 12.7 g/dl (12.0-16.0); Imm Gran Abs Auto 0.02 X10*3/uL (0.00-0.03); Imm Gran Pct Auto 0.3 % (0.0-0.4); Lymphocytes Absolute Auto 2.1 X10*3/uL (1.2-4.9); Mean Corpuscular HGB Conc 31.6 g/dl (31.0-35.0); Mean Corpuscular Hemoglobin 29.3 pg (27.0-33.0); Mean Corpuscular Volume 92.6 fL (80.0-98.0); Mean Platelet Volume 9.8 fL (9.4-12.3); Monocytes Absolute Auto 0.6 X10*3/uL (0.1-1.2); Neutrophils Absolute Auto 3.3 x10*3/uL (2.0-8.3); Neutrophils Percent Auto 54.4 % (45-73); Platelet Count 462 X10*3/uL (160-400); Red Blood Count 4.34 X10*6/uL (4.20-5.50); Red Cell Distribution Width 13.3 % (11.0-16.0); White Blood Count 6.1 X10*3/uL (4.8-10.8)
[2023-01-23 12:09] LABS: Anion Gap 12 (12-20); Blood Urea Nitrogen 15 mg/dL (9-16); Carbon Dioxide 27 mmol/L (22-29); Chloride 102 mmol/L (96-108); Estimated Glomerular Filt Rate > 60; Glucose Random 93 mg/dL (60-115); Potassium 4.3 mmol/L (3.3-5.1); Sodium 137 mmol/L (135-145)
[2023-01-23 12:11] LABS: Alanine Aminotransferase 30 U/L (0-31); Albumin Level 4.2 g/dL (3.5-5.0); Alkaline Phosphatase 178 U/L (39-117); Aspartate Amino Transferase 27 U/L (5-31); Bilirubin Direct 0.5 mg/dL (0.0-0.5); Bilirubin Total 1.4 mg/dL (0.0-1.0); Total Protein 6.4 g/dL (6.5-8.0)
== END 2023-01-23 09:16 | disposition home or self-care (01) ==
LOC: HO.HMGCLDS 09:15
PROVIDERS: Absent Provider Internal Medicine; PCP Internal Medicine; Visit Provider Internal Medicine
DX: R74.8 Abnormal levels of other serum enzymes (principal); I10 Essential (primary) hypertension
CPT/HCPCS: 36415; 80048; 80076; 85025

== ENCOUNTER 2023-01-30 08:46 | Outpatient (REF) | payer MEDICARE, SELFPAY ==
--- NOTE | ~2023-01-30 | US_ITS ---
EXAMINATION: US ABDOMEN LIMITED CLINICAL INFORMATION: Right upper quadrant, epigastric pain, choledocholithiasis. COMPARISON: Ultrasound abdomen limited and CT abdomen and pelvis 01/11/2023. Ultrasound abdomen limited 07/27/2022. TECHNIQUE: Real-time imaging of the right upper quadrant abdominal viscera. FINDINGS: PANCREAS: Normal. LIVER: The liver is normal in size. The liver contour is normal. Parenchymal echogenicity is normal. No focal hepatic lesion. There is no intrahepatic biliary duct dilatation seen. GALLBLADDER: The gallbladder is contracted. The wall appears to be asymmetrically thickened at 7 mm. There is a question of a small amount of fluid within the wall. No definite gallstones are seen. Rodrigues's sign is positive. It should be noted at the time of the prior abdominal ultrasound on 01/11/2023, Rodrigues's sign was positive as well. COMMON BILE DUCT: Normal in caliber measuring 0.7 cm in diameter. Previously, the common bile duct measured 0.9 cm. RIGHT KIDNEY: No hydronephrosis. No renal calculi or focal parenchymal lesions. The kidney measures 9.3 cm in maximum dimension. FREE FLUID: None. US/US abdomen limited IMPRESSION: Contracted gallbladder with thickened wall and question of fluid within the wall. No definite gallstones are seen. Rodrigues's sign is positive.
[2023-01-30 12:03] LABS: Alanine Aminotransferase 18 U/L (0-31); Albumin Level 3.9 g/dL (3.5-5.0); Alkaline Phosphatase 140 U/L (39-117); Aspartate Amino Transferase 20 U/L (5-31); Bilirubin Direct 0.3 mg/dL (0.0-0.5)
== END 2023-01-30 08:47 | disposition home or self-care (01) ==
LOC: HO.HMGCX 08:46
PROVIDERS: Absent Provider Internal Medicine; PCP Internal Medicine; Visit Provider Internal Medicine
DX: R10.13 Epigastric pain (principal); K80.50 Calculus of bile duct without cholangitis or cholecystitis without obstruction
CPT/HCPCS: 36415; 76705; 80076

== ENCOUNTER → 2023-02-23 08:14 | Outpatient (REF) | payer MEDICARE, SELFPAY ==
--- NOTE | ~2023-02-23 | NM_ITS ---
EXAMINATION: BILIARY TRACT IMAGING STUDY CLINICAL INFORMATION: Abnormal gallbladder on ultrasound upper abdominal pain.. 5-6 weeks ago emergency ERCP to remove common bile duct stone. COMPARISON: No previous biliary scan is available for comparison. Abdominal ultrasound dated 01/30/20[address] is available for comparison. CT scan of the abdomen and pelvis dated 01/11/2023 is also available for comparison.. TECHNIQUE: Serial gamma scintillation camera images were obtained over the abdomen for a total observation period of 3.75 hours following the intravenous administration of 5 mCi Tc-99m Mebrofenin. FINDINGS: There is good concentration of activity in the liver by 5 minutes post injection. Biliary activity is visualized by 15 minutes. Small bowel is well visualized by 20 minutes. The gallbladder is nonvisualized and any time during the study up to 3.75 hours post injection. At the end of the study, on the delayed images at 3.75 hours, there is almost complete clearance of activity from the liver and visualization of diffuse bowel activity. There is almost complete clearance of activity from the liver at this time. NM/NM hepatobiliary wo pharm IMPRESSION: Nonvisualization the gallbladder is evidence of an obstructed cystic duct and strong evidence to suggest the diagnosis of acute cholecystitis. This can also be seen with chronic cholecystitis. The common bile duct is patent. Liver function appears normal.
== END ==
LOC: HO.NUCMED 08:14
PROVIDERS: PCP Internal Medicine; Visit Provider Internal Medicine
DX: R93.2 Abnormal findings on diagnostic imaging of liver and biliary tract (principal); R10.10 Upper abdominal pain, unspecified
CPT/HCPCS: 78226; A9537

== ENCOUNTER → 2023-02-26 14:40 | Outpatient (BNVA) | payer MEDICARE, SELFPAY | PROVIDERS: PCP Internal Medicine; Referring Provider Internal Medicine; Visit Provider Surgery | DX: R10.13 Epigastric pain (principal); G89.29 Other chronic pain | CPT/HCPCS: 99212 ==

== ENCOUNTER 2023-03-15 09:59 | Outpatient (REF) | payer MEDICARE, SELFPAY ==
[2023-03-15 14:33] LABS: Alanine Aminotransferase 17 U/L (0-31); Albumin Level 3.9 g/dL (3.5-5.0); Alkaline Phosphatase 113 U/L (39-117); Aspartate Amino Transferase 22 U/L (5-31); Bilirubin Direct 0.2 mg/dL (0.0-0.5); Bilirubin Total 0.6 mg/dL (0.0-1.0); Blood Urea Nitrogen 14 mg/dL (9-16); Estimated Glomerular Filt Rate > 60; Total Protein 6.4 g/dL (6.5-8.0)
== END 2023-03-15 10:00 | disposition home or self-care (01) ==
LOC: HO.HMGCLDS 09:59
PROVIDERS: PCP Internal Medicine; Visit Provider Surgery
DX: R10.13 Epigastric pain (principal); G89.29 Other chronic pain
CPT/HCPCS: 36415; 80076; 82565; 84520

== ENCOUNTER 2023-03-22 08:16 | Outpatient (REF) | payer MEDICARE, SELFPAY ==
--- NOTE | ~2023-03-22 | CT_ITS ---
EXAMINATION: CT ABDOMEN AND PELVIS WITH CONTRAST CLINICAL INFORMATION: Epigastric pain COMPARISON: CT abdomen from 01/11/2023, ultrasound abdomen from 09/01/2022 nuclear medicine hepatobiliary study flow 02/23/2023 TECHNIQUE: Multidetector volumetric images were obtained from the superior aspect of the liver through the pubic symphysis following administration 85 mL of Omnipaque 350 intravenous contrast. Sagittal and coronal reformatted images were obtained on the technologist's workstation. Oral contrast: No This CT examination was performed using dose optimization techniques as appropriate, variously including the following: *Automated exposure control *Adjustment of mA and/or kV according to patient size (this includes techniques or standardized protocols for targeted exams where dose is matched to indication/reason for exam; i.e. extremities or head) *Use of iterative reconstruction technique DLP: 663 mGy-cm FINDINGS: LUNG BASES: Calcified granuloma the right lower lobe. Emphysematous changes. Bibasilar atelectasis. No pneumothorax. No large pleural effusion. LIVER, GALLBLADDER, AND BILIARY TREE: The liver is normal in size, shape, and attenuation. No focal hepatic lesion or biliary ductal dilatation is present. Intrahepatic pneumobilia secondary to recent ERCP. Gallbladder is again demonstrated to be contracted without evidence of pericholecystic fluid, evaluation for wall thickening is limited underdistended state. PANCREAS: Mildly atrophied pancreas. SPLEEN: Unremarkable. ADRENAL GLANDS: Unremarkable. KIDNEYS AND URETERS: Bilateral extrarenal pelves. The kidneys are normal in size, shape, and attenuation. No hydronephrosis, hydroureter, or calculi seen. No perinephric stranding. BLADDER: Unremarkable. GASTROINTESTINAL TRACT: Large hiatal hernia redemonstrated. Very slight colonic diverticulosis without acute diverticulitis. Enteric contrast noted throughout the small bowel in the ascending colon and proximal aspect of the transverse colon. The small and large bowel are unremarkable. The appendix is unremarkable. ABDOMINAL WALL: Small fat filled umbilical hernia. Tiny bilateral fat filled inguinal hernias. LYMPH NODES: Normal. VASCULAR: Unremarkable. PELVIC VISCERA: Uterus appears surgically absent. OSSEOUS STRUCTURES: Grade 1 retrolisthesis of L2 on L3. Multilevel degenerative changes of the thoracolumbar lumbosacral spine. Degenerative arthropathy of the left sacroiliac joints CT/CT abdomen pelvis w IV con IMPRESSION: 1. Intrahepatic pneumobilia secondary to recent ERCP. 2. Gallbladder is again demonstrated to be contracted without evidence of pericholecystic fluid, evaluation for wall thickening is limited underdistended state. 3. Large hiatal hernia. 4. Very slight colonic diverticulosis without acute diverticulitis.
[2023-03-22] MEDS: Barium Sulfate Oral (Vanilla) 450 ML ORAL.SUSP 900 ML PO (11:13)
[2023-03-22] MEDS: iohexoL 350 MG/ML 100 ML INFUS..BTL 85 ML IV (11:14)
== END 2023-03-22 08:17 | disposition home or self-care (01) ==
LOC: HO.CT 08:16
PROVIDERS: PCP Internal Medicine; Visit Provider Surgery
DX: R10.13 Epigastric pain (principal)
CPT/HCPCS: 74177; Q9967

== ENCOUNTER 2023-04-04 14:42 | Outpatient (AMB) | payer MEDICARE, SELFPAY ==
--- NOTE | 2023-04-04 14:44 | A.OFFVIS_ITS ---
Intake Vital Signs 04/04/23 14:49 Weight 152 lb BP 106/55 L Blood Pressure Location Rt brachial Position Sitting Pulse 73 Intake Visit Reasons: Follow Up CT results Intake Note: This patient presents for a follow-up assessment for Ct-Scan results. Patient c/o; reports no changes and complaints at this time. 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 Accompanied by: Self / Same As Patient Allergies No Known Allergies Allergy (Verified 04/04/23 14:50) Medication List - Last Reconciled 04/04/23 by Emir Banks MD albuterol sulfate 2.5 mg inhalation Q6H atenolol 1 tab PO DAILY cefuroxime axetil 500 mg PO BID fluticasone propionate 50 mcg/actuation 1 spray intranasal DAILY lisinopril 1 tab PO DAILY magnesium oxide 1 tab PO BEDTIME metronidazole 500 mg PO Q8H omeprazole 1 cap PO SUTUTH ondansetron 4 mg PO Q8H PRN HPI Follow Up CT results HPI Details I had seen her a month ago as a follow-up after she had undergone ERCP for see a CBD stone last Dec, 2022. I had sent her for a CT scan to reimage her gallbladder. She not have any residual gallstones on an ultrasound when she was admitted the hospital last December. She describes occasional gastric pain that seems to radiate to the chest. She denies any right upper quadrant pain. She denies any postprandial pain either on the abdomen. She says she has good oral intake. She has good bowel movements. [facility] Medical History (Updated 04/04/23 @ 15:02 by Emir Banks MD) Choledocholithiasis Chronic epigastric pain Common bile duct (CBD) obstruction Dilated cbd, acquired Hyperlipidemia Hypertension Surgical History H/O: hysterectomy History of rotator cuff surgery Family History Other No family history of coronary artery disease Social History Household Members: Spouse Housing: House Do you presently have visiting nurse or other home services: No Alcohol intake: never Patient Tobacco Use Status: Former Tobacco user Quit Date: 40+ years e-Cigarette/Vaping Use: Never Used Advance Directives Date on File: 01/12/23 service: No Current occupational status: retired Review of Systems Const Denies chills and Denies fever(s) Card Denies chest pain, Denies dyspnea and Denies dyspnea on exertion Resp Denies cough, Denies dyspnea and Denies dyspnea on exertion GI Denies hematochezia and Denies change in bowel habits Denies hematuria Musc Denies back pain and Denies limited range of motion Neuro Denies focal weakness and Denies convulsions Psych Denies depression and Denies mood swings Physical Exam Vital Signs: Last Vital Signs Pulse 73 04/04/23 14:49 BP 106/55 L 04/04/23 14:49 Const General: comfortable and no acute distress Orientation/consciousness: patient oriented x3 Eyes Other: Nonicteric Neck Neck: Yes no lymphadenopathy Resp Auscultation: clear to auscultation bilaterally Cardio Rhythm: regular rhythm GI Palpation (GI): Soft to palpation, nontender and no guarding Neuro General: patient oriented x3 Assessment & Plan Assessment & Plan (1) Common bile duct (CBD) obstruction: Code(s): K83.1 - Obstruction of bile duct Plan: She had undergone ERCP last Dec, 2022 because of a CBD stone. She did not have any residual gallbladder stones at that time I had sent for repeat CT scan and this does not reveal any gallbladder pathology. She she has a pneumobilia from her ERCP and sphincterotomy. Her gallbladder was contracted suggesting that this is functioning despite her history of non-emptying of her gallbladder on HIDA scan in the past . She does not describe any right upper quadrant pain. She does state that she has occasional pain in the epigastric area radiating with chest wall and her CAT scan does show large hiatal hernia She has a follow-up with Dr. Stahl and I explained to her to mention this so as she may need a repeat EGD on her next colonoscopy. Currently, I told her that in the absence of any symptoms and any residual gallstone, I would hold off on doing cholecystectomy at this time. Coding Level of Care Code Est Pt Level 3 (70029) Diagnoses Common bile duct (CBD) obstruction K83.1
[2023-04-04 14:49] VITALS: BP 106/55; PULSE 73
== END 2023-04-04 14:57 | disposition home or self-care (01) ==
PROVIDERS: PCP Internal Medicine; Visit Provider Surgery
DX: K83.1 Obstruction of bile duct (principal)
CPT/HCPCS: 99213

== ENCOUNTER → 2023-04-04 14:42 | Outpatient (BNVA) | payer MEDICARE, SELFPAY | PROVIDERS: PCP Internal Medicine; Visit Provider Surgery | DX: K83.1 Obstruction of bile duct (principal) | CPT/HCPCS: 99212 ==

== ENCOUNTER 2023-05-02 06:23 | Day surgery (SDC) | payer MEDICARE, SELFPAY ==
--- NOTE | 2023-05-01 10:54 | HO.ANESPROP2 ---
Documented by User: Ariella Almodovar NP 05/01/23 10:57 HPI - Anesthesia Eval Consult details Narrative: 73yo F for Colonoscopy s/p ERCP 12/2022 with BRENDA RUIZ Active Problems Active Problems: All Active Problems (Updated 04/04/23 @ 15:02 by Emir Banks MD) Common bile duct (CBD) obstruction (Acute) Chronic epigastric pain (Acute) Hypokalemia (Acute) Acute colitis (Acute) Diverticulitis (Acute) Past Medical History Medical History Choledocholithiasis Chronic epigastric pain Common bile duct (CBD) obstruction Dilated cbd, acquired Hyperlipidemia Hypertension Family History Family History Other No family history of coronary artery disease Family history of problems with anesthesia: No Surgical History Surgical History H/O: hysterectomy History of rotator cuff surgery History of Problems with Anesthesia: No Social History Social History Household Members: Spouse Housing: House Do you presently have visiting nurse or other home services: No Alcohol intake: never Patient Tobacco Use Status: Former Tobacco user Quit Date: 40+ years e-Cigarette/Vaping Use: Never Used Use of substances other than those prescribed or required for medical reasons: No Are you DNR?: No Advance Directives: No Advance Directives Information Provided: Yes Advance Directives Date on File: 01/12/23 service: No Current occupational status: retired [employer] Allergies Allergy/AdvReac Type Severity Reaction Status Date / Time No Known Allergies Allergy Verified 04/04/23 14:50 Home Medications Medication Instructions Recorded Confirmed Last Taken Type atenolol 50 mg tablet 1 tab PO DAILY 07/26/22 05/02/23 05/02/23 History fluticasone propionate 50 1 spray intranasal DAILY 07/26/22 05/02/23 01/11/23 History mcg/actuation nasal spray,suspension lisinopril 40 mg tablet 1 tab PO DAILY 07/26/22 05/02/23 05/02/23 History magnesium oxide 400 mg (241.3 mg 1 tab PO BEDTIME 07/26/22 05/02/23 3 Days Ago History magnesium) tablet ~01/09/23 omeprazole 20 mg capsule,delayed 1 cap PO SUTUTH 07/26/22 05/02/23 01/11/23 History release albuterol sulfate 2.5 mg/3 mL 2.5 mg inhalation Q6H 02/26/23 05/02/23 Unknown History (0.083 %) solution for nebulization pravastatin 40 mg tablet 40 mg PO DAILY 05/02/23 05/02/23 Unknown History Exam Exam Date and Time: May 01, 2023 1054 Pertinent Lab Results Pertinent Lab Results: Laboratory Tests 01/23/23 01/23/23 03/15/23 09:10 09:10 10:04 WBC 6.1 Hgb 12.7 Hct 40.2 Plt Count 462 H D Sodium 137 Potassium 4.3 Chloride 102 Carbon Dioxide 27 BUN 14 Creatinine 0.82 Narrative Narrative: CT abdomen pelvis w IV con 02/2023 IMPRESSION: 1.? Intrahepatic pneumobilia secondary to recent ERCP. 2.? Gallbladder is again demonstrated to be contracted without evidence of pericholecystic fluid, evaluation for wall thickening is limited underdistended state. 3.? Large hiatal hernia. 4.? Very slight colonic diverticulosis without acute diverticulitis. EKG 2021 Vent. Rate : 068 BPM ? ? Atrial Rate : 068 BPM ?? P-R Int : 146 ms? QRS Dur : 080 ms ? ? QT Int : 410 ms ? ? ? P-R-T Axes : 046 023 011 degrees ?? QTc Int : 435 ms ? Normal sinus rhythm Low voltage QRS Normal ECG No previous ECGs available Assessment and Plan Assessment Anesthesia Assessment: Chart Reviewed Final Anesthetic Review Family History of Problems with Anesthesia: No History of Problems with Anesthesia: No Documented by User: Susan Montano MD 05/02/23 07:23 [facility] Past Medical History Medical History Choledocholithiasis Chronic epigastric pain Common bile duct (CBD) obstruction Dilated cbd, acquired Hyperlipidemia Hypertension Family History Family History Other No family history of coronary artery disease Surgical History Surgical History H/O: hysterectomy History of rotator cuff surgery Social History Social History Household Members: Spouse Housing: House Do you presently have visiting nurse or other home services: No Alcohol intake: never Patient Tobacco Use Status: Former Tobacco user Quit Date: 40+ years e-Cigarette/Vaping Use: Never Used Use of substances other than those prescribed or required for medical reasons: No Are you DNR?: No Advance Directives: No Advance Directives Information Provided: Yes Advance Directives Date on File: 01/12/23 service: No Current occupational status: [employer] Allergies Allergy/AdvReac Type Severity Reaction Status Date / Time No Known Allergies Allergy Verified 04/04/23 14:50 Home Medications Medication Instructions Recorded Confirmed Last Taken Type atenolol 50 mg tablet 1 tab PO DAILY 07/26/22 05/02/23 05/02/23 History fluticasone propionate 50 1 spray intranasal DAILY 07/26/22 05/02/23 01/11/23 History mcg/actuation nasal spray,suspension lisinopril 40 mg tablet 1 tab PO DAILY 07/26/22 05/02/23 05/02/23 History magnesium oxide 400 mg (241.3 mg 1 tab PO BEDTIME 07/26/22 05/02/23 3 Days Ago History magnesium) tablet ~01/09/23 omeprazole 20 mg capsule,delayed 1 cap PO SUTUTH 07/26/22 05/02/23 01/11/23 History release albuterol sulfate 2.5 mg/3 mL 2.5 mg inhalation Q6H 02/26/23 05/02/23 Unknown History (0.083 %) solution for nebulization pravastatin 40 mg tablet 40 mg PO DAILY 05/02/23 05/02/23 Unknown History Exam Airway Mallampati Class: III (full caps) TM Dist: >3cm Neck ROM: Full Loose/Missing/Broken Teeth: No Heart: RRR Lungs: CTA Assessment and Plan Assessment Anesthesia Assessment: Anesthesia Plan Discussed Final Anesthetic Review NPO: Yes ASA Class: II Final Preanesthetic Review: Meds/Allgs Chart Reviewed, Consent Obtained/Reviewed and Anes Risks/Benef Reviewed Patient Risk: Low Procedure Risk: Low Anesthetic Plan Anesthetic Plan: MAC: Disposition: Standard PACU
[2023-05-02 06:53] VITALS: BMI 26.9
[2023-05-02 06:59] VITALS: BP 108/51; PULSE 59; RESP 18; TEMP 36.2; O2SAT 100
[2023-05-02 07:09] VITALS: BMI 26.5
[2023-05-02] MEDS: Lactated Ringers 1,000 ML 100 ML IVCONT (07:18)
[2023-05-02 08:22] VITALS: BP 90/48; PULSE 55; RESP 14; TEMP 36.6; O2SAT 97
--- NOTE | 2023-05-02 08:28 | PM.OP ---
Brief Operative Note Date of Service: 05/02/23 Pre-op diagnosis: Screening Post-op diagnosis: other (Colon polyp) Procedure: Colonoscopy to the cecum and TI with hot snare polypectomy Surgeon: Duane Stahl Anesthesia: MAC Was an Warehouse Packaging Supervisor used for this Procedure?: No Estimated blood loss (mL): 0 Pathology: other (A. Cecal polyp) Condition: stable Disposition: PACU
--- NOTE | 2023-05-02 08:36 | OP_ITS ---
DATE OF SERVICE: 05/02/2023 SURGEON: Duane Stahl MD INDICATIONS: The patient presents for followup of colorectal cancer screening and personal history of tubular adenoma of the colon. Full consent has been obtained from her for this, including risks of bleeding and perforation. PREOPERATIVE DIAGNOSIS: Colorectal cancer screening and personal history of tubular adenoma of the colon. POSTOPERATIVE DIAGNOSIS: Colorectal cancer screening and personal history of tubular adenoma of the colon, colon polyp, diverticulosis and internal hemorrhoids. PROCEDURE PERFORMED: Colonoscopy to the cecum and terminal ileum with hot snare polypectomy. ESTIMATED BLOOD LOSS: COMPLICATIONS: ANESTHESIA: Monitored anesthesia care. ASSISTANTS: SPECIMENS: DESCRIPTION OF PROCEDURE: The patient was placed in the left lateral decubitus position. The digital rectal exam revealed no abnormalities. The Olympus video pediatric colonoscope was entered into the rectum and advanced easily to the cecum. Once in the cecum, I did identify cecal pouch with appendiceal orifice and a normal-appearing ileocecal valve. The terminal ileum was cannulated and appeared normal. Scope was withdrawn back in the colon. The entire cecum was well visualized. In the cecum was an approximately 10 mm flat but raised grossly adenomatous polyp, which was removed by hot snare polypectomy recovered by suction. The polypectomy site appeared clean, without any sign of residual polyp nor bleeding. The scope was then slowly withdrawn assessing all mucosal surfaces carefully. Preparation was excellent. I did not visualize any sign of other polyps, colitis, nor angiodysplasia. There were several diverticula in the ascending and transverse colon. There was a moderate amount of diverticulosis in the sigmoid colon. In the rectum, scope was retroflexed visualizing internal hemorrhoids, but no other pathology. The rectal mucosa appeared normal. The scope was straightened and withdrawn from the patient, She tolerated the procedure well and was returned to recovery area in stable condition. IMPRESSION: 1. Colon polyp. 2. Diverticulosis. 3. Internal hemorrhoids. PLAN: The results of the pathology will be checked. She should have a repeat colonoscopy in 5 years for further screening, although at that point would be in her late 70s and we would need to take her clinical condition into account. She was advised not to use any aspirin or NSAIDs for 1 week. In regard to the intermittent abdominal pain, she has been seeing Dr. Banks for that in regard to potential gallbladder surgery. She did have a recent abnormal HIDA scan with nonvisualization of the gallbladder, but she does not have any gallstones. However, she did have a recent episode of choledocholithiasis. If she remains pain-free, then I would continue to observe her. If she continues to have intermittent episodes of the right upper quadrant and epigastric pain, then I would recommend reconsideration for cholecystectomy. She was advised not to use any aspirin and NSAIDs for 1 week. She will otherwise see me on a p.r.n. basis. MD MELANY Atkinson/OCTAVIA / [phone] MTDD
[2023-05-02 08:37] VITALS: BP 103/60; PULSE 52; RESP 16; O2SAT 100
[2023-05-02 08:49] VITALS: BP 121/64; PULSE 50; RESP 16; TEMP 36.7; O2SAT 100
== END 2023-05-02 09:10 | disposition home or self-care (01) ==
PROVIDERS: PCP Internal Medicine; Visit Provider Internal Medicine
PROC: 0DJD8ZZ Inspection of Lower Intestinal Tract, Via Natural or Artificial Opening Endoscopic (ICD-10-PCS; CPT 45378; principal; 2023-05-02 07:30)
DX: Z12.11 Encounter for screening for malignant neoplasm of colon (principal); Z86.010 Personal history of colon polyps; D12.0 Benign neoplasm of cecum; K57.30 Diverticulosis of large intestine without perforation or abscess without bleeding; K64.8 Other hemorrhoids; K80.50 Calculus of bile duct without cholangitis or cholecystitis without obstruction; K21.9 Gastro-esophageal reflux disease without esophagitis; I10 Essential (primary) hypertension; E78.5 Hyperlipidemia, unspecified; J45.909 Unspecified asthma, uncomplicated; Z79.51 Long term (current) use of inhaled steroids; Z79.899 Other long term (current) drug therapy; Z87.891 Personal history of nicotine dependence
CPT/HCPCS: 45385; 88305

== ENCOUNTER 2023-06-30 08:41 | Outpatient (REF) | payer MEDICARE, SELFPAY ==
--- NOTE | ~2023-06-30 | MM_ITS ---
EXAMINATION: MM SCREENING DIGITAL BREAST TOMOSYNTHESIS, BILATERAL CLINICAL INFORMATION: Screening. Asymptomatic. COMPARISON: Mammography: This study is compared with prior exams dating back to 2016. TECHNIQUE: Digital breast tomosynthesis is performed in both the craniocaudal and mediolateral oblique views along with computer-aided detection (CAD). Synthesized 2D images are generated from the tomosynthesis. FINDINGS: There are scattered areas of fibroglandular density (ACR BI-RADS breast composition Category b). There are no significant masses, abnormal calcifications, or other abnormalities. MM/MM tomosynthesis screening BI IMPRESSION: No mammographic evidence of malignancy. ASSESSMENT: BI-RADS BI-RADS 1 - Negative RECOMMENDATION: Routine annual mammography screening. 1 year F/U This examination should not preclude the clinical evaluation of a suspicious palpable abnormality. This patient's information was entered into a reminder system with a target due date for their next mammogram.
== END 2023-06-30 08:42 | disposition home or self-care (01) ==
LOC: HO.MAMMO 08:41
PROVIDERS: PCP Internal Medicine; Visit Provider Internal Medicine
DX: Z12.31 Encounter for screening mammogram for malignant neoplasm of breast (principal)
CPT/HCPCS: 77063; 77067

== ENCOUNTER → 2023-06-30 09:00 | Outpatient (BNV) | payer MEDICARE, SELFPAY | PROVIDERS: PCP Internal Medicine; Visit Provider Radiology Diagnostic Radiology | DX: Z12.31 Encounter for screening mammogram for malignant neoplasm of breast (principal) | CPT/HCPCS: 77063; 77067 ==

== ENCOUNTER 2023-11-28 08:43 | Outpatient (AMB) | payer MEDICARE, SELFPAY ==
[2023-11-28 08:44] VITALS: BP 100/60; PULSE 76; TEMP 36.4
--- NOTE | 2023-11-28 08:44 | AM.OFFWIN_ITS ---
Intake Vital Signs 11/28/23 08:44 Height 5 ft 3.5 in BP 100/60 Blood Pressure Location Lt brachial Position Sitting Pulse 76 Pulse Source Palpation Temp 97.5 F Temp Source Oral Intake Visit Reasons: EP Sore throat Intake Note: pt is here for sore throat for last few days, unable to get Oxygen due to hands to cold Patient Tobacco Use Status: Former Tobacco user Quit Date: 40+ years Allergies No Known Allergies Allergy (Verified 11/28/23 08:44) Do you need a note to return to daycare/school/sports/work: No HPI HPI Comments History of Present Illness Details 73 y/o female patient who presents to [facility] in clinic with c/o Sore- throat and body aches since Sun. Denies chills, fever, nausea or vomiting. Reports that she had family members over for Easter and worried she might have caught someting. [facility] Medical History Choledocholithiasis Chronic epigastric pain Common bile duct (CBD) obstruction Dilated cbd, acquired Hyperlipidemia Hypertension Surgical History H/O: hysterectomy History of rotator cuff surgery Family History Other No family history of coronary artery disease Social History Household Members: Spouse Housing: House Do you presently have visiting nurse or other home services: No Alcohol intake: never Patient Tobacco Use Status: Former Tobacco user Quit Date: 40+ years e-Cigarette/Vaping Use: Never Used Advance Directives Date on File: 01/12/23 service: No Current occupational status: retired Review of Systems Const All systems reviewed & are unremarkable except as noted in HPI and below Physical Exam Vital Signs: Last Vital Signs Temp 97.5 F 11/28/23 08:44 Pulse 76 11/28/23 08:44 BP 100/60 11/28/23 08:44 Const General: comfortable and no acute distress Orientation/consciousness: patient oriented x3 HEENT Head: Yes normocephalic Ears: external ears normal and TM abnormal with fluid behind the TM bilateral; not bulging, not with effusion, not erythematous, not perforated and not retracted General nose exam: Normal nasal mucous membranes and turbinates present Face and sinus: Yes sinuses nontender Mouth: moist mucous membranes Throat: Yes posterior oropharynx normal Resp Effort & Inspection: normal respiratory effort, able to speak in complete s entences, no audible wheezes and no cough Auscultation: clear to auscultation bilaterally, no crackles, no rales, no rhonchi and no wheezes Cardio Rate: regular rate Rhythm: regular rhythm Neuro General: patient oriented x3 Results AMB Rapid Strep AMB Rapid Strep Negative Last Edit by Errol Salvador CMA on 11/28/23 09 :01 Assessment & Plan Assessment & Plan (1) Acute pharyngitis: Code(s): J02.9 - Acute pharyngitis, unspecified Qualifiers: Pharyngitis/tonsillitis etiology: unspecified etiology Qualified Code(s): J02.9 - Acute pharyngitis, unspecified Plan: - OTC cold/Sore throat remedies - Acetaminophen for pain relief - REst and Hydrate with warm fluids. - SARs - RTC if symptoms worse. Orders: Orders SARS-CoV2/FLU/RSV Today J02.9 - Acute pharyngitis, unspecified, R09.89 - Other specified symptoms and signs involving the circulatory and respiratory systems AMB Rapid Strep Screen Today Z13.9 - Encounter for screening, unspecified Coding Level of Care Code Est Pt Level 3 (11202) Diagnoses Acute pharyngitis, unspecified etiology J02.9 Pharyngitis/tonsillitis etiology: unspecified etiology Time Spent (min) 15
== END 2023-11-28 09:26 | disposition home or self-care (01) ==
PROVIDERS: PCP Internal Medicine; Visit Provider Nurse Practitioner Family
DX: J02.9 Acute pharyngitis, unspecified (principal)
CPT/HCPCS: 87880; 99213

== ENCOUNTER 2023-11-28 09:01 | Outpatient (REF) | payer MEDICARE, SELFPAY ==
[2023-11-28 13:13] LABS: Influenza A PCR NEGATIVE (Negative); Influenza B PCR NEGATIVE (Negative); Resp Syncy Virus RNA Qual PCR NEGATIVE (Negative); SARS COV2 PCR INHOUSE POSITIVE (Negative)
== END 2023-11-28 09:02 | disposition home or self-care (01) ==
LOC: HO.LAB 09:01
PROVIDERS: Visit Provider Nurse Practitioner Family
DX: R09.89 Other specified symptoms and signs involving the circulatory and respiratory systems (principal); J02.9 Acute pharyngitis, unspecified
CPT/HCPCS: 0241U

== ENCOUNTER 2024-07-05 08:30 | Outpatient (REF) | payer MEDICARE, SELFPAY ==
--- NOTE | ~2024-07-05 | MM_ITS ---
EXAMINATION: MM SCREENING DIGITAL BREAST TOMOSYNTHESIS, BILATERAL CLINICAL INFORMATION: Screening. Asymptomatic. COMPARISON: Mammography: Comparison is made with available priors TECHNIQUE: Digital breast mammography with tomosynthesis is performed in both the craniocaudal and mediolateral oblique views along with computer-aided detection (CAD). FINDINGS: There are scattered areas of fibroglandular density (ACR BI-RADS breast composition Category b). There are no significant masses, abnormal calcifications, or other abnormalities. MM/MM tomosynthesis screening BI IMPRESSION: No mammographic evidence of malignancy. ASSESSMENT: BI-RADS BI-RADS 1 - Negative RECOMMENDATION: Routine annual mammography screening. 1 year F/U This examination should not preclude the clinical evaluation of a suspicious palpable abnormality. This patient's information was entered into a reminder system with a target due date for their next mammogram. Electronically signed by: Monika Moran DO 07/07/2024 07:46 PM [facility]
== END 2024-07-05 08:31 | disposition home or self-care (01) ==
LOC: HO.MAMMO 08:30
PROVIDERS: PCP Internal Medicine; Visit Provider Internal Medicine
DX: Z12.31 Encounter for screening mammogram for malignant neoplasm of breast (principal)
CPT/HCPCS: 77063; 77067

== ENCOUNTER → 2024-07-05 08:45 | Outpatient (BNV) | payer MEDICARE, SELFPAY | PROVIDERS: PCP Internal Medicine; Visit Provider Internal Medicine | DX: Z12.31 Encounter for screening mammogram for malignant neoplasm of breast (principal) | CPT/HCPCS: 77063; 77067 ==

== ENCOUNTER 2025-05-20 08:49 | Outpatient (REF) | payer MEDICARE, SELFPAY ==
--- OUTSIDE RECORDS SUMMARY | 2025-05-20 10:09 | XMS_ITS | Patient Health Record ---
Author Organization [facility] Address [address] [place] [address] Care Team Providers Care Spud Grader Name Role Phone Evelio Marsh MD Primary Care Provider Duane Castillo Unavailable [phone] Allergies No Known Allergies Reason For Referral No Information Medications Medication SIG (Take, Route, Frequency, Duration) Notes Start Date End Date Status Omeprazole 20 MG 1 capsule Orally Onc e a day Active Atenolol-Chlorthalidone 50-25 MG 1 tablet Orally Once a day Active Pravastatin Sodium 40 MG 1 tablet Orally twice a day Active Lisinopril 40 MG 1 tablet Orally Once a day Active Albuterol Sulfate HFA Active Magnesium Active Fluticasone Propionate HFA Active Immunizations Vaccine Route Administration Date Status Comme nts Flu vaccine no Preserv 3 and > Unknown 06/12/2017 Admin istered Social History Alcohol Screen Question Answer Notes Did you have a drink containing alcohol in the p ast year? No Points 0 Interpretation Negative Section Notes: Nonsmoker; occasional alcoho l Nonsmoker; occasional alcoho l Nonsmoker; occasional alcoho l Nonsmoker; occasional alcoho l Problems Problem Type SNOMED Code ICD Code Onset Dates Problem Status W/U Status Risk Notes Problem 67993759 Epigastric pain (R10.13) Active confirmed Problem 966439301 Encounter for screening for malignant neoplasm of colon (Z12.11) Active confirmed Problem 323366913 Elevated liver enzymes (R74.8) Active confirmed Problem 791816961 Choledocholithia sis (K80.50) Active confirmed Problem 518081661 Hx of adenomatou s colonic polyps (Z86.010) Active confirmed Problem 85259719990468445 Abnormal gallb ladder ultrasound (R93.2) Active confirmed Problem 24478453 Upper abdominal pain (R10.10) Active confirmed Problem Diverticulosis of colon (993214309) Diverticulosis of colon (K57.30) Active confirmed Plan Of Treatment Pending Test Test Name Order Date LIVER PROFILE 01/25/2023 LIVER PROFILE 01/17/2023 CBC w DIFF 01/17/2023 NUC HIDA SCAN 01/31/2023 Pathology 05/02/2023 Future Test Test Name Order Date COLONOSCOPY 08/15/2012 COLONOSCOPY 12/19/2017 COLONOSCOPY 01/25/2023 Insurance Providers Payer Name Payer Address Payer Phone Subscriber Number Group Number Insured Name Patient Relationship to Insured Coverage Start Date Coverage End Date MEDICARE OF [place] [address] [place] [id number] [phone] [id number] DHARA LYON Self - patient is the insured [employer] ATT[employer] CLAIMS [address] [place] [address] [phone] [id number] DHARA LYON Self - patient is the insured Medical (General) History Medical History History ICD Code [id number] Hiatal hernia seen o n EGD 2003-no sig. esophagtis Hypertension Hyperlipidemia Asthma Denies UT,DM,CVA,renal disease Diverticulitis involving the sigmoid colon in 2009 and the ascending colon in April 2012; sigmoid colon in 10/2016 She had a colonoscopy in Aug revealing a small tubular adenoma in the cecum, mild diverticulosis in the ascending colon, and sigmoid diverticulosis--- she had a negative colonoscopy in 2003 Choledocholithiasis with cho langitis in December of 2022. She underwent an ERCP with sphincterotomy and removal of a common bile duct stone. Biopsies from the major papilla was negative for any adenoma or neoplasm. Surgical History Surgery Date(Month/Year) Bilateral shoulder surgery for rotator c uff Hysterectomy, laparoscopically
[2025-05-20 10:20] LABS: Blood Urea Nitrogen 23 mg/dL (9-16)
[2025-05-21 08:49] LABS: Estimated Glomerular Filt Rate 59
== END 2025-05-20 08:50 | disposition home or self-care (01) ==
LOC: HO.LAB 08:49
PROVIDERS: PCP Internal Medicine; Visit Provider Internal Medicine
DX: I10 Essential (primary) hypertension (principal)
CPT/HCPCS: 36415; 82565; 84520

== ENCOUNTER 2025-06-02 08:19 | Outpatient (REF) | payer MEDICARE, SELFPAY ==
--- NOTE | ~2025-06-02 | CT_ITS ---
EXAMINATION: CT ABDOMEN PELVIS WITH IV CONTRAST HISTORY: epigastric pain COMPARISON: Comparison is made to prior examination dated 02/20/2023. TECHNIQUE: CT scan of the abdomen and pelvis was performed following administration of 85 mL Omnipaque 350 using standard departmental protocol. Coronal and sagittal reformatted images were generated and reviewed. The patient received oral contrast material. This CT exam was performed with one or more of the following dose reduction techniques: automated exposure control, adjustment of the mA and/or kV according to patient size, use of iterative reconstruction technique. DLP: 566 mGy-cm FINDINGS: LOWER CHEST: The visualized lung bases are clear. There is no pleural effusion. CARDIOVASCULATURE: The heart is normal in size. There is no pericardial effusion. LIVER: The liver is normal in size and contour. No liver mass is identified. The hepatic and portal veins are patent. GALLBLADDER / BILE DUCTS: The gallbladder is unremarkable. Again seen is gas within the biliary system of the liver consistent with prior sphincterotomy. There is no intra or extrahepatic biliary ductal dilatation. SPLEEN: The spleen is normal in size. No focal splenic lesion is identified. PANCREAS: The pancreas is unremarkable in appearance. ADRENAL GLANDS: Within normal limits. KIDNEYS/RETROPERITONEUM: No renal calculi are identified. There is no hydronephrosis. No renal masses are identified. LYMPH NODES: No abdominal or pelvic lymphadenopathy. VASCULATURE: The abdominal aorta demonstrates atherosclerotic calcification, but is normal in caliber. MESENTERY/PERITONEUM: No free fluid. No masses. There is no free intraperitoneal gas. STOMACH: Again seen is a large hiatal hernia. SMALL BOWEL: The small bowel is normal in caliber. COLON: There is a large amount of stool in the descending and sigmoid colon. There are scattered diverticula of the sigmoid colon, without evidence of diverticulitis. APPENDIX: Normal. URINARY BLADDER/PELVIC ORGANS: The urinary bladder is unremarkable. The patient is status post hysterectomy. BONES / SOFT TISSUES: There is mild degenerative disc disease of the spine. CT/CT abdomen pelvis w IV con IMPRESSION: Large hiatal hernia. Large amount of stool in the descending and sigmoid colon. Electronically signed by: Duane Forbes MD 06/02/2025 10:54 AM EDT
--- OUTSIDE RECORDS SUMMARY | 2025-06-02 08:41 | XMS_ITS | Encounter Summary ---
Author Organization [facility] Address [address] [place] [address] Phone Care Team Providers Care Masonry Teacher Name Role Phone Evelio Marsh MD Primary Care Provider [phone] Evelio Marsh MD Unavailable [phone] Rebecca Guerrier RN Unavailable [phone] Reason for Visit * Reason Comments Medication Refill Encounter Details Date Type Department Care Team (Late st Contact Info) Description 05/28/2025 Refill [facility] [address] [place], [place] [id number] Alfredo Tam MD [address] [place] [address] [email or web address] Medication Refill Social History Tobacco Use Types Packs/Day Years Used Date Smoking Tobacco: Former Cigarettes 1 10 966 - 1975 Smokeless Tobacco: Never Alcohol Use Standard Drinks/Week Comments Not Currently 0 (1 standard drink = 0.6 oz pur e alcohol) Education Answer Date Recorded Are you interested in more education? Not on etta e 12/22/2022 Are you concerned about learning? Not on file 12/22/2022 No 12/22/2022 No 12/22/2022 Digital Access Answer Date Recorded No 01/16/2023 No 01/16/2023 Reliable internet access at home? Not on file 01/16/2023 Device with a working camera? Not on file Intimate Partner Violence Answer Date R ecorded Denied Basic Needs Not on file 09/25/2024 In the past 12 months have y ou been in a relationship with a person who hurts, threatens, or tries to control you? No 09/25/2024 Worried food would run out Not on file 09/25 In the past 12 months have y ou been in a relationship with a person who hurts, threatens, or tries to control you? No 09/25/2024 Comments No Sex and Gender Information Value Date Recorded Sex Assigned at Not on file Legal Sex Female 10:04 PM EDT Gender Identity Not on file Sexual Orientation Not on file documented as of this encounter Progress Notes * Emilia Frazier CMA - 05/28/2025 8:10 AM EDT Rx Care Gap Status - Instructions for Clinical Staff (prescriber discretion applies): > Mismatch review guide > N/a - No action needed Visit Info Last visit: 03/30/2025 Evelio Marsh MD - Internal Medicine [facility] > Requested f/u: Not specified Upcoming visit: 07/24/2025 Evelio Marsh MD - Internal Medicine [facility] ACTIONS TAKEN BY Emilia Frazier CMA - Criteria met. Cholesterol Medication Rx Protocol - pravastatin sodium Criteria met; renew for up to 12 months. Visit in the past 14 months: Yes Clinical criteria: - Lipid panel within past year: Yes Lab Results Component Value Date LDL - External 92 09/25/2023 LDL, calculated - External 81 03/31/2025 HDL - External 62 03/31/2025 Triglycerides - External 77 03/31/2025 Cholesterol, Total - External 155 03/31/2025 documented in this encounter Plan of Treatment Upcoming Encounters Date Type Department Care Team (Late st Contact Info) Description 07/24/2025 9:30 AM EST Office Visit [facility] Internal Medicine [address] [place] [address] Evelio Marsh MD [address] [place] [address] 10/07/2025 1:00 PM EST Office Visit [facility] Internal Medicine [address] [place] [address] Evelio Marsh MD [address] [place] [address] 02/10/2026 9:30 AM EDT Office Visit [facility] Internal Medicine [address] [place] [address] Evelio Marsh MD [address] [place] [address] documented as of this encounter Visit Diagnoses Diagnosis Pure hypercholesterolemia documented in this encounter Additional Health Concerns Assessment Noted Time PHQ-2 Depression Total Score: 2 09/25/19 25 10:53 AM EST documented as of this encounter Care Teams Masonry Teacher Relationship Specialty Start Date End Date Evelio Marsh MD [address] [place] [address] PCP - General 06/14/17 Evelio Marsh MD [address] [place] [address] Insurance Assigned Provider 12/01/23 Rebecca Guerrier, RN [address] [place] [address] [id number] [employer] Human Service Coordinator 12/04/23 documented as of this encounter Additional Source Comments The information contained in this document represents components of the legal health record. It is not the complete legal health record.[facility]
--- OUTSIDE RECORDS SUMMARY | 2025-06-02 08:41 | XMS_ITS | Encounter Summary ---
Author Organization [facility] Address [address] [place] [address] Phone Care Team Providers Care Industrial Economics Teacher Name Role Phone Evelio Marsh MD Primary Care Provider [phone] Evelio Marsh MD Unavailable [phone] Rebecca Guerrier RN Unavailable [phone] Encounter Details Date Type Department Care Team (Latest Contact Info) Description 12/27/2017 Transcribe Orders [facility] [address] [place] [address] Evelio Marsh MD [address] [place], [place] [phone] [email or web address] Diarrhea, unspecified type (Primary Dx); Essential hypertension, benign Social History Tobacco Use Types Packs/Day Years Used Date Smoking Tobacco: Former Smokeless Tobacco: Never Comments:quit 42 years ago Alcohol Use Standard Drinks/Week Comments Yes 2 (1 standard drink = 0.6 oz pur e alcohol) Comments Unknown Sex and Gender Information Value Date Recorded Sex Assigned at Not on file Legal Sex Female 10:04 PM EDT Gender Identity Not on file Sexual Orientation Not on file documented as of this encounter Plan of Treatment Upcoming Encounters Date Type Department Care Team (Late st Contact Info) Description 07/24/2025 9:30 AM EST Office Visit [facility] Internal Medicine [address] [place], [place] [phone] Evelio Marsh MD [address] [place] [address] 10/07/2025 1:00 PM EST Office Visit [facility] Internal Medicine [address] [place] [address] Evelio Marsh MD [address] [place] [address] 02/10/2026 9:30 AM EDT Office Visit [facility] Internal Medicine [address] [place] [address] Evelio Marsh MD [address] [place] [address] documented as of this encounter Results * Giardia lamblia antibody, IFA (12/27/2017 10:47 AM EDT) GIARDIA LAMBLIA AB, IFA <1:16 [facility] Comment: (NOTE) REFERENCE RANGE: <1:16 INTERPRETIVE CRITERIA: <1:16 Antibody Not Detected 1:16 Equivocal; submission of a second specimen (collected 3-4 weeks after initial specimen) suggested if clinically warranted. > or = 1:32 Antibody Detected A polyvalent conjugate (recognizing IgG, IgM, and IgA) is used to detect the presence of antibodies to Giardia lamblia. A four-fold or greater increase in titer between acute and convalescent sera indicates an acute active phase. A single positive reaction represents previous exposure, since antibody titers are known to remain high for at least six months. This test was developed and its analytical performance characteristics have been determined by [facility]. It has not been cleared or approved by the U.S. Food and Drug Administration. The FDA has determined that such clearance or approval is not necessary. This assay has been validated pursuant to the CLIA regulations and is used for clinical purposes. Test Performed by: [facility] [id number] [place] [id number] Blood 12/27/2017 10:4 7 AM EDT 12/27/2017 10:52 AM EDT us Evelio Marsh MD LAB BLOOD ORDERABLES Final Re sult [facility] * (ABNORMAL) Comprehensive metabolic panel (12/27/2017 10:47 AM EDT) SODIUM 138 133 - 146 mmol/L [facility] POTASSIUM 4.0 3.3 - 5.1 mmol/L [facility] CHLORIDE 97 96 - 108 mmol/L [facility] CO2 26 21 - 35 mmol/L [facility] BUN 21(H) 6 - 19 mg/dL [facility] CREATININE 1.10 0.5 - 1.5 mg/dL [facility] GLUCOSE 92 70 - 99 mg/dL [facility] ALBUMIN 3.9 3.9 - 4.8 g/dL [facility] TOTAL PROTEIN 6.7 6.5 - 8.0 g/dL [facility] CALCIUM 7.5(L) 8.4 - 10.3 mg/dL [facility] ALKALINE PHOSPHATASE 62 39 - 117 U/L [facility] TOTAL BILIRUBIN 0.6 0.0 - 1.2 mg/dL [facility] AST 21 0 - 37 U/L [facility] ALT 11 0 - 40 U/L [facility] GLOBULIN 2.8 1 - 4.8 g/dL [facility] EGFR 52(L) >59 mL/min/1.7 3m2 [facility] Comment:If patient is black, multiply result by 1.159. The eGFR calculation has changed from the MDRD equation to the CKD-EPI equation as of October 30, 2017. ANION GAP 19 10 - 20 mmol/L [facility] Blood 12/27/2017 10:4 7 AM EDT 12/27/2017 10:51 AM EDT us Evelio Marsh MD LAB BLOOD ORDERABLES Final Re sult [facility] [address] [place] [address] * (ABNORMAL) CBC and differential (12/27/2017 10:47 AM EDT) WBC 5.73 3.40 - 11.20 K/uL [facility] RBC 4.19 3.80 - 4.80 M/uL [facility] HGB 13.2 12.0 - 15.0 g/dL [facility] HCT 39.0 36.0 - 46.0 % [facility] PLT 333 130 - 400 K/uL [facility] MCV 93.1 79.0 - 98.0 fL [facility] MCH 31.5 27.0 - 34.8 pg [facility] MCHC 33.8 31.5 - 36.0 g/dL [facility] RDW 12.1 10.8 - 14.6 % [facility] MPV 9.1(L) 9.4 - 12.4 fl [facility] NRBC 0.00 /100 WBCs [facility] ABSOLUTE NRBC 0.00 K/uL [facility] DIFF METHOD Auto [facility] NEUTS 56.9 45.30 - 77.70 % [facility] LYMPHS 26.4 12.30 - 39.70 % [facility] MONOS 15.2(H) 4.10 - 12.80 % [facility] EOS 1.0 0 - 7.2 % [facility] BASOS 0.2 0 - 2.80 % [facility] Granulocytes, immature (%) 0.3 0.0 - 0.9 % [facility] ABSOLUTE NEUTS 3.26 1.40 - 7.70 K/uL [facility] ABSOLUTE LYMPHS 1.51 0.60 - 3.20 K/uL [facility] ABSOLUTE MONOS 0.87(H) 0.11 - 0.59 K/uL [facility] ABSOLUTE EOS 0.06 0.01 - 0.50 K/uL [facility] ABSOLUTE BASOS 0.01 0.00 - 0.08 K/uL [facility] Granulocytes, immature 0.02 0.00 - 0.05 K/uL [facility] Blood 12/27/2017 10:4 7 AM EDT 12/27/2017 10:51 AM EDT us Evelio Marsh MD LAB BLOOD ORDERABLES Final Re sult [facility] [address] [place] [address] documented in this encounter Visit Diagnoses Diagnosis Diarrhea, unspecified type- Primary Essential hypertension, benign documented in this encounter Additional Health Concerns Assessment Noted Time PHQ-2 Depression Total Score: 0 08/07/20 17 4:20 PM EST documented as of this encounter Care Teams Industrial Economics Teacher Relationship Specialty Start Date End Date Evelio Marsh MD [address] [place] [address] PCP - General 06/14/17 Evelio Marsh MD [address] [place] [address] Insurance Assigned Provider 12/01/23 Rebecca Guerrier, RN [address] [place], [place] [id number] [email or web address] Pricing Actuary 12/04/23 documented as of this encounter Additional Source Comments The information contained in this document represents components of the legal health record. It is not the complete legal health record.[facility]
--- OUTSIDE RECORDS SUMMARY | 2025-06-02 08:41 | XMS_ITS | Encounter Summary ---
Author Organization [facility] Address [address] [place] [address] Phone Care Team Providers Care Consultant Technology Name Role Phone Evelio Marsh MD Primary Care Provider [phone] Evelio Marsh MD Unavailable [phone] Rebecca Guerrier RN Unavailable [phone] Encounter Details Date Type Department Care Team (Late st Contact Info) Description 05/21/2025 Orders Only [facility] Internal Medicine [address] [place] [address] Provider, MD Bekah [address] [place] [address] Social History Tobacco Use Types Packs/Day Years Used Date Smoking Tobacco: Former Cigarettes 1 10 1 966 - 1975 Smokeless Tobacco: Never Alcohol [...] Description 07/24/2025 9:30 AM EST Office Visit [facility] Internal Medicine [address] [place] [address] Evelio Marsh MD [address] [place] [address] 10/07/2025 1:00 PM EST Office Visit [facility] Internal Medicine [address] [place] [address] Evelio Marsh MD [address] [place] [address] 02/10/2026 9:30 AM EDT Office Visit [facility] Internal Medicine [address] [place] [address] Evelio Marsh MD [address] [place] [address] documented as of this encounter Procedures Procedure Name Priority Date/Time Associated Diagnosis Comments OUTSIDE LAB Routine 05/20/2025 4:37 PM EDT documented in this encounter Results * Outside Lab (05/20/2025 4:37 PM EDT) us Historical Provider LAB BLOOD ORDERABLES Anisa l Result documented in this encounter Visit Diagnoses Not on filedocumented in this encounter Additional Health Concerns Assessment Noted Time PHQ-2 Depression Total Score: 2 09/25/19 25 10:53 AM EST documented as of this encounter Care Teams Consultant Technology Relationship Specialty Start Date End Date Evelio Marsh MD [address] [place] [address] [email or web address] PCP - General 06/14/17 Evelio Marsh MD [address] [place] [address] Insurance Assigned Provider 12/01/23 Rebecca Guerrier, RN [address] [place] [id number] [email or web address] Registration Coordinator 12/04/23 documented as of this encounter Additional Source Comments The information contained in this document represents components of the legal health record. It is not the complete legal health record.[facility]
--- OUTSIDE RECORDS SUMMARY | 2025-06-02 08:42 | XMS_ITS | Clinical Summary ---
Author Organization [facility] Address [address] [place] [address] Phone Care Team Providers Care Theatre Program Director Name Role Phone Evelio Marsh MD Primary Care Provider [phone] Evelio Marsh MD Unavailable [phone] YaRebecca pedro RN Unavailable [phone] Allergies Active Allergy Reactions Criticality Noted Date Comments Atorvastatin Myalgia 08/07/2017 Medications magnesium oxide (MAG-OX) 400 mg (241.3 mg elemental) tablet Take 400 mg by mouth nightly at bedtime. Active Lactobacillus acidophilus (PROBIOTIC ORAL) Take 1 capsule by mouth daily. Active ondansetron (ZOFRAN-ODT) 4 MG disintegrating tablet Take 4 mg by mouth every 8 (eight) hours as needed. 023 Active albuterol 90 mcg/actuation inhaler Inhale 2 puffs into the lungs every 4 (four) hours as needed. Active calcium carbonate (TUMS ORAL) Take 1 tablet by mouth 2 (two) times a day. Up to three times a day Active omeprazole (PRILOSEC) 20 MG capsuleIndications:Donte roesophageal reflux disease TAKE 1 CAPSULE BY MOUTH 3 TIMES A WEEK 36 capsule 4 024 Active fluticasone propionate (FLONASE) 50 mcg/actuation nasal sprayIndications:Season al allergies SPRAY 2 SPRAYS INTO EACH NOSTRIL EVERY DAY 48 mL 3 025 Active atenolol (TENORMIN) 50 mg tabletIndications:Essen tial hypertension TAKE 1 TABLET BY MOUTH EVERY DAY 90 tablet 3 025 Active lisinopril (PRINIVIL,ZESTRIL) 20 MG tabletIndications:Essen tial hypertension Take 1 tablet (20 mg total) by mouth every morning. 025 Active pravastatin (PRAVACHOL) 80 MG tabletIndications:Pure hypercholesterolemia TAKE 1 TABLET BY MOUTH EVERY DAY 90 tablet 3 025 Active pravastatin (PRAVACHOL) 80 MG tabletIndications:Pure hypercholesterolemia take 1 tablet by mouth every day 90 tablet 3 024 2024 Discontinued Active Problems Patient Care Coordination No te Formatting of this note migh t be different from the original. Patient is high risk for these reasons: Multiple chronic conditions Living Situation: Lives in 2 story home with spouse and 2 daughters Functional Status (ADL's/iADLs): Independent Family/Social Supports: Supportive family and friends Goals of Care (HCP/Molst): HCP mailed to patient Community Supports (e.g. VNA, DME Vendors, Elder Services): N/A Transportation: Drives self Medication Management System/Specialized Pharmacy Needs: Local pharmacy picker and sorter load and unload Financial Concerns: None identified Other Supports and Care Needs: N/A Problem Noted Date Diagnosed Date Stage 3a chronic kidney disease 09/06/2021 Chronic obstructive pulmonary disease 12/27/2017 Diverticulosis of colon 12/27/2017 Essential hypertension 12/27/2017 Gastroesophageal reflux disease 12/27/2017 Hypertension 12/27/2017 Hyperlipidemia 12/27/2017 Pure hypercholesterolemia 12/27/2017 Tubular adenoma of colon 12/27/2017 Encounters Date Type Department Care Team Description 05/28/2025 Refill [facility] Internal Medicine [address] [place] [address] Alfredo Tam MD Medication Refill 05/25/2025 Enrollment [facility] Physicians - Primary Care [address] [place] [address] 05/21/2025 Orders Only [facility] Internal Medicine [address] [place] [address] ProviderBekah MD 05/04/2025 Telephone [facility] Internal Medicine [address] [place] [address] Evelio Marsh MD labs orders needed 04/20/2025 Patient Outreach [facility] [address] [place] [address] Rebecca Guerrier, RN Care Coordination (iCMP) 04/02/2025 Documentation [facility] [address] [facility] [place] [address] Evelio Marsh MD 03/30/2025 11:00 AM EDT Office Visit [facility] Internal [facility] [address] [place] [address] Evelio Marsh MD Epigastric pain (Primary Dx); Essential hypertension 03/30/2025 Telephone [facility] Internal [facility] [address] [place] [address] scan ordered 03/18/2025 Patient Outreach [facility] [address] [place] [address] Rebecca Guerrier, ALIA Care Coordination (iCMP) 03/17/2025 Documentation [facility] Internal [facility] [address] [place] [address] Evelio Marsh MD from Last 3 Months Immunizations Immunization Administration Dates Next Due COVID-19 (Pre-06/18) Moderna Vaccine, mRNA, PF 10/21/2020,09/23/2020 INFLUENZA, SPLIT VIRUS, TRIV ALENT W/ PRESERVATIVE IM 06/27/2016,05/27/2012 Influenza High-Dose Quadriva lent Preservative Free IM 05/08/2022,06/04/2021,05/04/2020 Influenza High-Dose Trivalen t Preservative Free IM 04/25/2024,06/16/2019,06/10/2018 Influenza Quadrivalent Adjuv anted Preservative Free IM 05/11/2023 Influenza Quadrivalent w/ Preservative IM 2016 Influenza Trivalent Adjuvant ed Preservative free IM 06/16/2022 Pneumococcal conjugate PCV13 06/05/2018,08/15/20 16 Pneumococcal polysaccharide PPSV23 03/07/2020, RSV Vaccine (monovalent, adjuvanted) 10/31/2024 Td (adult) 5 Lf Tetanus Toxo id, PF, Adsorbed 03/27/2003 Tdap 09/03/2012 Zoster live 09/06/2011 Zoster recombinant 04/13/2020,10/31/2019 Family History Medical History Relation Comments Heart disease Father Diabetes Mother Heart disease Mother Relation Status Comments Father Mother Social History Tobacco Use Types Packs/Day Years Used Date Smoking Tobacco: Former Cigarettes 1 10 966 1975 Smokeless Tobacco: Never Alcohol Use Standard [...] on file Sexual Orientation Not on file Last Filed Vital Signs Vital Sign Reading Time Taken Comments Blood Pressure 114/74 03/30/2025 11:38 AM EDT Pulse 58 03/30/2025 11:03 AM EDT Temperature 36 C (96.8 F) 03/30/2025 11:03 AM EDT Respiratory Rate 12 03/30/2025 11:03 AM EDT Oxygen Saturation 98% 03/30/2025 11:03 AM EDT Inhaled Oxygen Concentration - - Weight 68.2 kg (150 lb 6.4 oz) 03/30/2025 11:03 AM EDT Height 158.2 cm (5' 2.28 ) 03/30/2025 11:03 AM E DT Body Mass Index 27.26 03/30/2025 11:03 AM EDT Plan of Treatment Upcoming Encounters Date Type Department Care Team (Late st Contact Info) Description 07/24/2025 9:30 AM EST Office Visit [facility] Internal Medicine [address] [place] [address] Evelio Marsh MD [address] [place] [address] 10/07/2025 1:00 PM EST Office Visit [facility] Internal Medicine [address] [place] [address] Evelio Marsh MD [address] [place] [address] 02/10/2026 9:30 AM EDT Office Visit [facility] Internal Medicine [address] [place] [address] Evelio Marsh MD [address] [place] [address] Health Maintenance Due Date Last Done Comments COLOGUARD 1994 FIT TEST 1994 FOBT 1994 SIGMOIDOSCOPY 1994 VIRTUAL COLONOSCOPY 1994 Adult Td,Tdap Booster 09/03/2022 09/03/2012, 003 COLONOSCOPY 02/05/2023 02/05/2018, 01/25, 10/08/2012 COLORECTAL CANCER SCREENING 02/05/2023 INFLUENZA VACCINE (#1) 2025 , 05/11/2023, 05/11/2023, Additional history exists COVID-19 VACCINE ( season) 2025 04/25/2024, 05/30/2023, 05/26/2022, Additional history exists DEPRESSION SCREENING 09/25/2025 09/25/2024 BLOOD PRESSURE 09/30/2025 03/30/2025 CREATININE LEVEL 03/31/2026 03/31/2025, , 05/30/2024, Additional history exists POTASSIUM LEVEL 03/31/2026 03/31/2025, 05/28, 05/30/2024, Additional history exists FOLLOW UP BONE DENSITY TESTING 09/25/2026 09/25/2024, 03/24/2024, 09/18/2022, Additional history exists LIPID PANEL 03/31/2030 03/31/2025, 08/29, 09/25/2023, Additional history exists PNEUMOCOCCAL VACCINES (50+ years) Completed 03/07/2020, 06/05/2018, 08/15/2016, Additional history exists ZOSTER VACCINES Completed 04/13/2020, 030 01/2020, 09/06/2011 HEPATITIS C SCREENING Completed 03/01/2022, 022 OSTEOPOROSIS SCREENING INITIAL (ONE-TIME) Completed 09/25/2024, 03/24/2024, 09/18/2022, Additional history exists RSV VACCINE Completed 10/31/2024 SMOKING STATUS SCREENING (Once After 26 Yrs) Completed 03/30/2025 HEPATITIS A VACCINES Aged Out No long er eligible based on patient's age to complete this topic HIB VACCINES Aged Out No longer eligi ble based on patient's age to complete this topic MENINGOCOCCAL VACCINES (ACWY) Aged Out No longer eligible based on patient's age to complete this topic MENINGOCOCCAL VACCINES (B) Aged Out N o longer eligible based on patient's age to complete this topic Medical Devices Not on file Procedures Procedure Name Priority Date/Time Associated Diagnosis Comments OUTSIDE LAB Routine 05/20/2025 4:37 PM EDT C-REACTIVE PROTEIN Routine 03/31/2025 10:05 AM EDT Epigastric pain LIPASE Routine 03/31/2025 10:05 AM EDT Epigastric pain MAGNESIUM Routine 03/31/2025 10:04 AM EDT Essential hypertension URINALYSIS W/REFLEX URINE CULTURE Routine 03/31/2025 10:04 AM EDT Nocturia CBC AND DIFFERENTIAL Routine 03/31/2025 10:04 AM EDT Benign essential hypertension HEMOGLOBIN A1C Routine 03/31/2025 Impaired fasting glucose TSH WITH REFLEX Routine 03/31/2025 Pure hypercholesterolemia Benign essential hypertension LIPID PANEL Routine 03/31/2025 Pure hypercholesterolemia COMPREHENSIVE METABOLIC PANEL Routine 03/31/2025 Pure hypercholesterolemia Benign essential hypertension CT ABDOMEN/PELVIS Routine 03/30/2025 11:52 AM EDT Epigastric pain BD DXA SCREENING Routine 09/25/2024 12:08 PM EST Postmenopausal estrogen deficiency HEPATITIS C ANTIBODY, QUALITATIVE Routine 03/01/2022 1:43 PM EDT Need for hepatitis C screening test COLONOSCOPY FOR RESULT ENTRY ONLY Routine 02/05/2018 from Last 3 Months or Most Recently Relevant to Health Maintenance Results * Outside Lab (05/20/2025 4:37 PM EDT) [facility] Provider LAB BLOOD ORDERABLES Anisa l Result * C-Reactive Protein (03/31/2025 10:05 AM EDT) Blood Evelio Marsh MD LAB BLOOD ORDERABLES Final Re sult Performing Organization Address [facility] Co de Phone Number EXTERNAL NON-INTERFACED REF LAB * Lipase (03/31/2025 10:05 AM EDT) Blood Evelio Marsh MD LAB BLOOD ORDERABLES Final Re sult Performing Organization Address [facility] Co de Phone Number EXTERNAL NON-INTERFACED REF LAB * Magnesium (03/31/2025 10:04 AM EDT) Blood Evelio Marsh MD LAB BLOOD ORDERABLES Final Re sult Performing Organization Address [facility] de Phone Number EXTERNAL NON-INTERFACED REF LAB * Urinalysis w/reflex Urine Culture (03/31/2025 10:04 AM EDT) Urine (Urine) Evelio Marsh MD URINE ORDERABLES Final Result Performing Organization Address [facility] de Phone Number EXTERNAL NON-INTERFACED REF LAB * CBC and differential (03/31/2025 10:04 AM EDT) Blood Evelio Marsh MD LAB BLOOD ORDERABLES Final Re sult Performing Organization Address [facility] de Phone Number EXTERNAL NON-INTERFACED REF LAB * Comprehensive metabolic panel (03/31/2025) Sodium - External EXTERNAL NON-INTERFACED REF LAB Potassium - External 4.7 EXTERNAL NON-INTERFACED REF LAB Chloride - External EXTERNAL NON-INTERFACED REF LAB CO2 - External EXTER NAL NON-INTERFACED REF LAB BUN - External EXTER NAL NON-INTERFACED REF LAB Creatinine - External 0.85 EXTERNAL NON-INTERFACED REF LAB Glucose - External 91 EXTERNAL NON-INTERFACED REF LAB Albumin - External EXTERNAL NON-INTERFACED REF LAB Protein - External EXTERNAL NON-INTERFACED REF LAB Calcium - External EXTERNAL NON-INTERFACED REF LAB Alkaline Phosphatase - External EXTERNAL NON-INTERFACED REF LAB Bilirubin, total - External EXTERNAL NON-INTERFACED REF LAB AST - External EXTER NAL NON-INTERFACED REF LAB ALT - External 19 EXTER NAL NON-INTERFACED REF LAB Globulin - External EXTERNAL NON-INTERFACED REF LAB eGFR - External EXTE RNAL NON-INTERFACED REF LAB Anion Gap - External EXTERNAL NON-INTERFACED REF LAB Blood 03/31/2025 Evelio Marsh MD LAB BLOOD ORDERABLES Edited R esult - Final Performing Organization Address [facility] de Phone Number EXTERNAL NON-INTERFACED REF LAB * TSH with reflex (03/31/2025) Pathologist [facility] TSH - External 2.61 EXTER NAL NON-INTERFACED REF LAB Free T4 - External EXTERNAL NON-INTERFACED REF LAB Blood 03/31/2025 Evelio Marsh MD LAB BLOOD ORDERABLES Edited [facility] Performing Organization Address [facility] de Phone Number EXTERNAL NON-INTERFACED REF LAB * Hemoglobin A1c (03/31/2025) Pathologist [facility] Hemoglobin A1c - External 5.7 EXTERNAL NON-INTERFACED REF LAB Blood 03/31/2025 Evelio Marsh MD LAB BLOOD ORDERABLES Edited [facility] Performing Organization Address [facility] de Phone Number EXTERNAL NON-INTERFACED REF LAB * Lipid panel (03/31/2025) HDL - External 62 EXTER NAL NON-INTERFACE D REF LAB Cholesterol, Total - External 155 EXTERNAL NON-INTERFACE D REF LAB Triglycerides - External 77 EXTERNAL NON-INTERFACE D REF LAB LDL, calculated - External 81 EXTERNAL NON-INTERFACE D REF LAB Cardiac Risk Ratio - External EXTERNAL NON-INTERFACE D REF LAB Non-HDL Cholesterol - External EXTERNAL NON-INTERFACE D REF LAB Blood 03/31/2025 Evelio Marsh MD LAB BLOOD ORDERABLES Edited [facility] Performing Organization Address [facility] de Phone Number EXTERNAL NON-INTERFACED REF LAB * Hepatitis C antibody, qualitative (03/01/2022 1:43 PM EDT) Blood Evelio Marsh MD LAB BLOOD ORDERABLES Final Re sult [facility] Organization Address City/State/ZIP Co de Phone Number [facility] [address] [place] [address] * DXA Screening (08/15/2018 2:53 PM EST) Anatomical Region Laterality Modality Bone Density Bone Density us Evelio Marsh MD IMG BD BONE DENSITY DEXA Anisa l Result * COLONOSCOPY FOR RESULT ENTRY ONLY (02/05/2018) Historical Provider HEALTH MAINTENANCE Final Result from Last 3 Months or Most Recently Relevant to Health Maintenance Insurance [employer] MEDICARE PART A & B [employer] MEDICARE PART A & B MEDEX SUPPLEMENT MEDICARE PART A & B [employer] SUPPLEMENT MEDICARE PART A & B [employer] SUPPLEMENT MEDICARE PART A & B [employer] SU[employer] MEDICARE PART A & B [employer] MEDICARE PART A & B [employer] MEDICARE PART A & B [employer] MEDICARE PART A & B Care Teams Theatre Program Director Relationship Specialty Start Date End Date Evelio Marsh MD [address] [place] [address] [email or web address] PCP - General 06/14/17 Evelio Marsh MD [address] [place] [address] [email or web address] Insurance Assigned Provider 12/01/23 Rebecca Guerrier, RN [address] [place] [address] [phone] [email or web address] iC[employer] Senior Mechanical Technician 12/04/23 Additional Source Comments The information contained in this document represents components of the legal health record. It is not the complete legal health record.[facility]
--- OUTSIDE RECORDS SUMMARY | 2025-06-02 08:42 | XMS_ITS ---
Author Organization [facility] Address [address] [place] [address] Phone Care Team Providers Care Assistant Superintendent For Curriculum Name Role Phone Evelio Marsh MD Primary Care Provider [phone] Evelio Marsh MD Unavailable [phone] Rebecca Guerrier RN Unavailable [phone] Population Health Care Management (PHCM) Status:Enrolled (Active) Start date:12/04/2023 Enrollment date:12/04/2023 Current support & services provided:[employer] Related social drivers of health:Housing Stability, Child or Family Care, Education, Food, Unemployment, Paying for Meds, Paying Utility Bills, Transportation, Digital Access, SNAP/WIC Case Team Name Relationship Phone Email Rebecca Guerrier RN Registered Nurse(Res ponsible Staff) [phone] Judy Decker PHCM Printed Forms Proofreader Continued Care and Services Coordination
--- OUTSIDE RECORDS SUMMARY | 2025-06-02 08:42 | XMS_ITS | Patient Health Record ---
Author Organization [facility] Address [address] [place] [address] Care Team Providers Care Iron Pellet Tester Name Role Phone Evelio Marsh MD Primary Care Provider Duane Castillo Unavailable [phone] Allergies No Known Allergies Reason For Referral [...] Problem Status W/U Status Risk Notes Problem [id number] Epigastric pain (R10.13) Active confirmed Problem [id number] Encounter for screening for malignant neoplasm of colon (Z12.11) Active confirmed Problem [id number] Elevated liver enzymes (R74.8) Active confirmed Problem [id number] Choledocholithia sis (K80.50) Active confirmed Problem [id number] Hx of adenomatou s colonic polyps (Z86.010) Active confirmed Problem [id number] Abnormal gallb ladder ultrasound (R93.2) Active confirmed Problem 91218836 Upper abdominal pain (R10.10) Active confirmed Problem Diverticulosis of colon (229629312) Diverticulosis of colon (K57.30) Active confirmed Plan [...] OF [place] [address] [place] [address] [phone] [id number] DHARA LYON Self - patient is the insured [employer] ATT[employer] CLAIMS [address] [place] [address] [id number] DHARA LYON Self - patient is the insured Medical (General) History Medical History History ICD Code [id number] Hiatal hernia seen o n EGD 2003-no sig. esophagtis Hypertension Hyperlipidemia Asthma Denies [place],DM,CVA,renal disease Diverticulitis involving the sigmoid colon in [...]
[2025-06-02] MEDS: Barium Sulfate Oral (Mocha) 450 ML ORAL.SUSP 900 ML PO (10:41)
[2025-06-02] MEDS: iohexoL 350 MG/ML 100 ML INFUS..BTL IV (10:41)
== END 2025-06-02 08:20 | disposition home or self-care (01) ==
LOC: HO.CT 08:19
PROVIDERS: PCP Internal Medicine; Visit Provider Internal Medicine
DX: R10.13 Epigastric pain (principal)
CPT/HCPCS: 74177; Q9967

== ENCOUNTER → 2025-06-02 10:16 | Outpatient (BNV) | payer MEDICARE, SELFPAY | PROVIDERS: PCP Internal Medicine; Visit Provider Radiology Diagnostic Radiology | DX: K44.9 Diaphragmatic hernia without obstruction or gangrene (principal) | CPT/HCPCS: 74177 ==

== ENCOUNTER 2025-07-11 08:47 | Outpatient (REF) | payer MEDICARE, SELFPAY | END 2025-07-11 08:48 | disposition home or self-care (01) | LOC: HO.MAMMO 08:47 | PROVIDERS: PCP Internal Medicine; Visit Provider Internal Medicine | DX: Z12.31 Encounter for screening mammogram for malignant neoplasm of breast (principal) | CPT/HCPCS: 77063; 77067 ==

== ENCOUNTER → 2025-07-11 09:00 | Outpatient (BNV) | payer MEDICARE, SELFPAY | PROVIDERS: PCP Internal Medicine; Visit Provider Internal Medicine | DX: Z12.31 Encounter for screening mammogram for malignant neoplasm of breast (principal) | CPT/HCPCS: 77063; 77067 ==